=== PATIENT | male | born 1980 | race Caucasian/White ===

== ENCOUNTER 2017-01-12 19:15 | Inpatient (IN) ==
[2017-01-12] MEDS ORDERED: *HR* LORazepam 2 MG/ML VIAL IVP ONE (19:18)
[2017-01-12] MEDS ORDERED: 0.9 % Sodium Chloride 1,000 ML IVC ONE (19:18)
[2017-01-12] MEDS ORDERED: Tdap (Boostrix) Vaccine 0.5 ML SYRINGE IM ONE (19:19)
--- NOTE | 2017-01-12 19:22 | Emergency Department Note ---
Disposition Clinical Impression: Epileptic seizure, Shoulder injury, Tachycardia, Abrasion, Elevated INR, Anemia , Cerebrovascular disease, Renal insufficiency Disposition: Admitted As Inpatient Condition: Fair Referrals: NO,PCP [Non-Partnered Physician] - Forms: ED Satisfaction Letter General Adult HPI - General Chief complaint: ED Seizure Stated complaint: SEIZURES - History of Present Illness HPI Narrative: 36-year-old male with a history of seizure disorder, he was just evaluated in emergency department and discharged. The patient was in the parking lot and had another seizure. The patient's mother reports he did not fall down or get hurt. They were able to lower him to the ground. The patient was brought into the ED then lost bladder control. Tonic-clonic activity is reported. The patient was feeling well several minutes ago at discharge and was able to ambulate out of the ED without difficulty. No other complaints or concerns noted. - Related Data Home Medications Medication Instructions Recorded Confirmed Carvedilol 12.5 mg PO BID 09/21/16 01/12/17 LevETIRAcetam [Levetiracetam] 1,000 mg PO BID 09/21/16 01/12/17 Sertraline [Zoloft] 100 mg PO DAILY 09/21/16 01/12/17 Simvastatin [Zocor] 40 mg PO HS 09/21/16 01/12/17 TraZODone [TraZODone] 50 mg PO HS 09/21/16 01/12/17 Ziprasidone HCl [Geodon] 40 mg PO BID 09/21/16 01/12/17 Lamotrigine [Lamictal] 100 mg PO BID 01/12/17 01/12/17 Warfarin [Coumadin] 4 mg PO 1800 01/12/17 01/12/17 Allergies Allergy/AdvReac Type Severity Reaction Status Date / Time amitriptyline [From Elavil] Allergy Seizure Verified 11/22/15 16:24 Limitations: ROS unobtainable due to patients medical condition Past Medical History - Past Medical History Medical history: Reports: CVA, hyperlipidemia, hypertension, migraine Psychiatric history: Reports: anxiety, depression, panic disorder - Social History Smoking Status: Current every day smoker Smokeless Tobacco Status: No Alcohol use: Reports: none Drug use: Reports: none Physical Exam - General Limitations: altered mental status, other (The patient appears to be slightly postictal, he is moving his arms and legs independently and does not appear to be in distress, no tonic-clonic jerking noted. The patient is managing his airway.) General appearance: alert - Head Head exam: atraumatic, normocephalic, normal inspection - Eye Eye exam: Present: normal appearance, PERRL, EOMI. Absent: scleral icterus, conjunctival injection, miosis, mydriasis - ENT ENT exam: normal exam, normal oropharynx, mucous membranes moist, TM's normal bilaterally, normal external ear exam - Neck Neck exam: Present: normal inspection, full ROM, trachea midline. Absent: tenderness - Chest Chest inspection: Present: normal inspection, symmetric chest wall rise. Absent : tenderness - Respiratory Respiratory exam: Present: normal lung sounds bilaterally. Absent: respiratory distress - Cardiovascular Cardiovascular exam: Present: regular rate, normal rhythm, normal heart sounds - Abdominal Exam Abdominal exam: Present: soft, Non-Tender, normal bowel sounds. Absent: tenderness, distention, guarding, rebound, rigidity, trauma, pulsatile mass - Extremities Exam Extremities exam: Present: full ROM, normal capillary refill, other (Old appearing bruising right shoulder. No dislocation. All 4 extremities warm and well perfused without cyanosis or edema otherwise. Minor abrasion right wrist area.). Absent: tenderness, pedal edema, joint swelling, calf tenderness - Expanded Lower Extremity Exam Hip/Pelvis exam: Present: full ROM. Absent: tenderness Upper leg exam: Present: full ROM. Absent: tenderness Knee exam: Present: full ROM. Absent: tenderness Lower leg exam: Present: full ROM. Absent: tenderness, Homans' sign Ankle exam: Present: full ROM. Absent: tenderness Foot/toe exam: Present: full ROM. Absent: tenderness Neurovascular/Tendon exam: Present: normal capillary refill. Absent: motor deficit, sensory deficit, tendon deficit, extremity cold to touch, pallor - Back Exam Back exam: Present: normal inspection, full ROM. Absent: tenderness, CVA tenderness (R), CVA tenderness (L), vertebral tenderness - Neurological Exam Neurological exam: Present: alert, CN II-XII intact. Absent: motor sensory deficit - Skin Skin exam: Present: warm, dry, intact, normal color. Absent: rash, cyanosis, diaphoresis, erythema, pallor, mottled Course Vital Signs Temperature 98 F 01/12/17 19:17 Pulse Rate 113 01/12/17 19:17 Respiratory Rate 22 01/12/17 19:17 Blood Pressure 173/117 01/12/17 19:17 O2 Sat by Pulse Oximetry 96 01/12/17 19:17 Temperature 98 F 01/12/17 19:17 Pulse Rate 88 01/12/17 20:51 Respiratory Rate 18 01/12/17 20:51 Blood Pressure 157/97 01/12/17 20:51 O2 Sat by Pulse Oximetry 100 01/12/17 20:51 Oxygen Delivery Oxygen Delivery Room Air Medical Decision Making - MDM Narrative Medical decision making narrative: The patient had a second seizure today. He does not usually have recurrent seizures. After Ativan, the patient became much more alert and arousable. He was able to follow commands without difficulty. The family did not want him to have a shoulder x-ray. They felt the shoulder was bruised her week ago or so. The patient appears to be stable at this point. He also had a lapse in his usual therapy for seizures which may be contributory. The patient is currently stable. Based on the patient's recurrent seizures, I thought it would be appropriate to admit the patient to the hospital. I have discussed the case with the hospitalist on-call who has accepted the patient to their care, he does not feel an MRI is necessary at this time. He asked me to consult with the neurologist [employer], I called Dr. Carrasco and spoke with him directly, he recommends keeping the patient on his current regimen, Dr. Carrasco will consult. - Lab Data Lab results reviewed: Yes I reviewed the patient's lab results. - Radiology Data Radiology results reviewed: Yes I reviewed the patient's radiology results.
[2017-01-13] MEDS ORDERED: *HR* LORazepam 2 MG/ML VIAL IVP STA ×3 (02:15→02:28)
[2017-01-13] MEDS ORDERED: *HR* LORazepam 2 MG/ML VIAL ONE ×2 (02:16→02:17)
[2017-01-13] MEDS ORDERED: Naloxone 0.4 MG/ML INJ IVP PRN (02:47)
[2017-01-13] MEDS ORDERED: *HR* LORazepam 2 MG/ML VIAL IVP PRN (02:47)
[2017-01-13] MEDS ORDERED: Magnesium Sulfate 2 GM in D5% in Water 100 ML IVPB ONE (02:55)
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
[2017-01-13 04:50] LABS: Basophils % 0.2 %; Eosinophils # 0.1 K/mcL (0.0-0.6); Eosinophils % 0.6 %; Hematocrit 29.8 % (37.5-50.1); Hemoglobin 10.1 g/dL (12.9-16.9); Immature Granulocytes % 0.9 % (0-4); Lymphocytes # 0.8 K/mcL (0.6-4.6); Lymphocytes % 7.2 %; Mean Corpuscular HGB Conc 33.9 g/dL (31.6-35.5); Mean Corpuscular Hemoglobin 28.2 pg (28.0-33.3); Mean Corpuscular Volume 83.2 fL (83.0-100.0); Mean Platelet Volume 10.9 fL (9.4-12.4); Monocytes # 0.9 K/mcL (0.0-1.3); Monocytes % 8.8 %; Neutrophils # 8.8 K/mcL (1.6-8.9); Platelet Count 146 K/mcL (140-400); Red Blood Count 3.58 M/mcL (4.19-5.50); Red Cell Distribution Width 14.4 % (11.5-14.5); Segmented Neutrophils % 82.3 %
[2017-01-13 04:54] LABS: INR 2.8; Prothrombin Time 30.8 Seconds (9.4-12.1)
[2017-01-13 05:07] LABS: Alanine Aminotransferase 12 Units/L (0-55); Albumin 3.5 g/dL (3.5-5.0); Albumin/Globulin Ratio 1.1 (1.1-2.2); Alkaline Phosphatase 89 Units/L (38-126); Aspartate Amino Transferase 16 Units/L (5-34); BUN/Creatinine Ratio 9 (6-26); Bilirubin,Total 0.3 mg/dL (0.2-1.2); Blood Urea Nitrogen 12 mg/dL (8-26); Calcium 8.5 mg/dL (8.6-10.8); Carbon Dioxide 21 mEq/L (19-29); Chloride 107 mEq/L (98-109); Globulin 3.2 g/dL (2.4-3.5); Glucose 120 mg/dL (70-99); Magnesium 1.7 mg/dL (1.6-2.6); Osmolality,Calculated 285 (280-300); Potassium 4.2 mEq/L (3.5-4.5); Sodium 137 mEq/L (136-145); Total Protein 6.7 g/dL (6.0-8.3); eGFR For African Americans > 60 (> 60); eGFR For Non-African Americans 60 (> 60)
[2017-01-13] MEDS ORDERED: *HR* LORazepam 2 MG/ML VIAL IVP ONE (07:31)
[2017-01-13] MEDS ORDERED: lamoTRIgine 100 MG TABLET PO SCH (09:00)
[2017-01-13] MEDS: levETIRAcetam 250 MG TABLET PO SCH ×2 (11:31→21:23)
--- NOTE | 2017-01-13 11:52 | Internal Med Progress Note ---
Date of Encounter: 01/13/17 Time of Encounter: 11:50 - Assessment and plan (1) Generalized seizure Current Visit: No Status: Acute Assessment and plan: -No recurrent seizure activity reported after the seizure episode last night -Neurology consultation with Dr. Carrasco appreciated -awaiting keppra level -antiepileptic medications adjusted as per Dr. Carrasco -continue Ativan for breakthrough seizures -continue to closely monitor -medication compliance education provided, patient willing to remain compliant with his home medications at this time. (2) Hypertension Current Visit: Yes Status: Acute Assessment and plan: -Noted to remain hypertensive despite home dose of Carvedilol -Increased Carvedilol to 25mg PO BID-BP and HR better controlled with this adjustment -added Hydralazine IV prn SBP>150 -will continue to closely monitor BP and adjust therapy as needed Qualifiers: Hypertension type: essential hypertension Qualified Code(s): I10 - Essential (primary) hypertension (3) Antiphospholipid antibody syndrome Current Visit: Yes Status: Acute Assessment and plan: -on chronic anticoagulation with Coumadin for stroke prevention -INR within therapeutic range at this time -Will resume coumadin -pharmacy to dose coumadin and adjust therapy as per INR -goal INR: 2-3 (4) Elevated INR Current Visit: Yes Status: Resolved Assessment and plan: INR within therpeutic range at this time (5) Tobacco abuse Current Visit: Yes Status: Acute Assessment and plan: smoking cessation counseling provided patient not ready to quit at this time refused nicotine replacement therapy (6) Anemia Current Visit: Yes Status: Chronic Assessment and plan: H&H low but acceptable no acute bleeding reported at this time will obtain iron levels, vitamin B12, and folate levels continue to monitor H&H Qualifiers: Anemia type: unspecified type Qualified Code(s): D64.9 - Anemia, unspecified (7) Chronic kidney disease Current Visit: Yes Status: Chronic Assessment and plan: Kidney function at baseline will continue to monitor Qualifiers: Chronic kidney disease stage: stage 3 (moderate) Qualified Code(s): N18.3 - Chronic kidney disease, stage 3 (moderate) (8) DVT prophylaxis Current Visit: Yes Status: Acute Assessment and plan: anticoagulated with Coumadin - Subjective Interval history: Patient seen and examined at bedside. Resting in bed and denies any discomfort at this time. Does not remember the preceding events to his hospitalization and states he doesn't recall if he was taking his seizure medications at home. He is a well known patient to the neurology service and has issues with compliance. Patient reports of being an every day smoker. 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 - Constitutional Vitals: Temp Pulse Resp BP Pulse Ox 98.2 F 94 15 135/92 97 01/13/17 11:29 01/13/17 11:29 01/13/17 11:29 01/13/17 11:29 01/13/17 11:29 General appearance: Present: A&O X 3, no acute distress - Head Head exam: Present: atraumatic, normocephalic - Eye Eye exam: Present: normal appearance, PERRL, conjuntiva pink, sclera anicteric - Respiratory Respiratory exam: Present: CTAB. Absent: accessory muscle use, rales, rhonchi, wheezes - Cardiovascular Cardiovascular exam: Present: RRR, +S1, +S2. Absent: diastolic murmur, gallop, rubs, systolic murmur - GI/Abdominal GI/Abdominal exam: Present: normal bowel sounds, soft, no peritoneal signs. Absent: distended, tenderness - Extremities Exam Extremities exam: Present: warm, radial pulses palpable and symetrical. Absent : calf tenderness, cyanotic, pedal edema - Neurological Exam Neurological exam: Present: alert, oriented X3, no focal deficits. Absent: pronater drift, facial droop, speech deficit - Psychiatric Psychiatric exam: Present: normal affect, normal mood Internal Medicine: Result - Labs CBC & Chem 7: 01/13/17 04:30 01/13/17 04:30 Labs: Short CBC 01/13/17 Range/Units 04:30 WBC 10.7 D (4.3-11.1) K/mcL Hgb 10.1 L (12.9-16.9) g/dL Hct 29.8 L (37.5-50.1) % Plt Count 146 (140-400) K/mcL Neutrophils # 8.8 (1.6-8.9) K/mcL BMP 01/13/17 04:30 Sodium 137 Potassium 4.2 Chloride 107 Carbon Dioxide 21 BUN 12 Creatinine 1.35 H Glucose 120 H Calcium 8.5 L Liver Function 01/13/17 Range/Units 04:30 Total Bilirubin 0.3 (0.2-1.2) mg/dL AST 16 (5-34) Units/L ALT 12 (0-55) Units/L Alkaline Phosphatase 89 (38-126) Units/L Albumin 3.5 (3.5-5.0) g/dL - ABG Interpretation ABG results: PT/INR, D-dimer PT 30.8 Seconds (9.4-12.1) H 01/13/17 04:30 - VTE Reasons for not Prescribing Prophylaxis: Not indicated-Anticoagulated or INR therapeutic Consult Discharge Plan - Plan Referrals: Mat Mitchell MD [Primary Care Provider] -
--- NOTE | 2017-01-13 11:56 | Neurology - Consult Note ---
Date of Encounter: 01/13/17 Time of Encounter: 11:50 Assessment and Plan (1) Epileptic seizure Current Visit: Yes Status: Acute Patient with known seizure disorder, who developed two breakthrough seizures in one day, lucid and back to baseline in between seizures. Compliance can not be confirmed at this time. Patient has significant past neurological conditions, including CVA, and multiple instances of subdural hematoma during 2011. Possible he would not be totally compliant with therapy. CT of head showed no acute changes. At this time, it appears there is no significant new [employer] pathology or medical provoking factors. Therefore treatment is largely adjusting his antiepileptic therapy. Has been on keppra 1000mg bid and lamotrigine 100mg bid. Will recommend to increase his lamotrigine dose to 150mg bid and continue on keppra 1000mg bid. Patient is to follow up with [facility] neurology or he can be seen in our neurology clinic after discharge. Will check lamotrigine level and keppra level for compliance check up. Please continue medical and supportive care Qualifiers: Epilepsy type: partial symptomatic Intractability: not intractable Status epilepticus: without status epilepticus Qualified Code(s): G40.209 - Localization-related (focal) (partial) symptomatic epilepsy and epileptic syndromes with complex partial seizures, not intractable, without status epilepticus History of Present Illness Chief complaint: recurrent seizures HPI: Mr. Arguello is a 36 year old male with extensive neurological conditions, notably history of ischemic stroke, history of antiphospholipid syndrome on coumadin, history of subdural hematoma, and seizure disorder who developed two witnessed seizures in one day. Patient carries a diagnosis of seizure made at [facility]. He last saw neurologist at [facility] during 2011. Has not seen neurology since then. He could not tell me detailed information regarding his seizures. Takes both keppra and lamotrigine for his seizures, keppra 1000g bid and Lamotrigine 100mg bid but unsure he is compliance with seizure medication or not. Yesterday he developed a seizure and was evaluated in ER. He had CT of head showing no acute intracranial abnormality. At the time of being discharged home he had another seizure. While on the floor patient was found to be actively seizing with urinary incontinence. Patient was started on Dilantin, in addition to keppra/ lamotrigine. At the time of this interview, he is wide awake and able to answer questions. no significant discomforts reported. Able to move all extremities. Past Med Surg Social Fam HX - Past Medical History Medical history: CVA, hyperlipidemia, hypertension, migraine Psychiatric history: anxiety, depression, panic disorder - Past Surgical History Surgical History: no surgical history (none known) - Social History Smoking Status: Current every day smoker Smokeless Tobacco Status: No Alcohol use: none Drug use: none - Family History Mother History Unknown: Yes Father History Unknown: Yes Medications and Allergies Carvedilol 12.5 mg PO BID 09/21/16 [History] LevETIRAcetam [Levetiracetam] 1,000 mg PO BID 09/21/16 [History] Sertraline [Zoloft] 100 mg PO DAILY 09/21/16 [History] Simvastatin [Zocor] 40 mg PO HS 09/21/16 [History] TraZODone [TraZODone] 50 mg PO HS 09/21/16 [History] Ziprasidone HCl [Geodon] 40 mg PO BID 09/21/16 [History] Lamotrigine [Lamictal] 100 mg PO BID 01/12/17 [History] Warfarin [Coumadin] 4 mg PO 1800 01/12/17 [History] Allergies amitriptyline [From Elavil] Allergy (Verified 11/22/15 16:24) Seizure All Systems: A 10-system review of systems was performed and is negative for pertinent findings except as documented above in the HPI. Physical Examination - Vital Signs Vital Signs: Initial Vital Signs Temp Pulse Resp BP Pulse Ox 98 F 113 22 173/117 96 01/12/17 19:17 01/12/17 19:17 01/12/17 19:17 01/12/17 19:17 01/12/17 19:17 - Constitutional General appearance: comfortable - Neurologic Sensorimotor examination: other (Grossly intact) Detailed motor examination: grossly full strength in all extremities Detailed sensory examination: intact (Grossly intact) Posture: other (None) Reflex and gait examination: other (Gait not assessed.) Reflexes: Biceps: 2+, Triceps: 2+, Brachioradialis: 2+, Patella: 2+, Achilles: 2 + Mental Status Examination: awake, alert, oriented to person, oriented to place, oriented to time, follows commands appropriately, answers questions appropriately, no agnosia, no aphasia, no aproxia Results - Laboratory Findings CBC and BMP: 01/13/17 04:30 01/13/17 04:30 Abnormal lab findings: Abnormal lab results RBC 3.58 M/mcL (4.19-5.50) L 01/13/17 04:30 Hgb 10.1 g/dL (12.9-16.9) L 01/13/17 04:30 Hct 29.8 % (37.5-50.1) L 01/13/17 04:30 PT 30.8 Seconds (9.4-12.1) H 01/13/17 04:30 Creatinine 1.35 mg/dL (0.72-1.25) H 01/13/17 04:30 Glucose 120 mg/dL (70-99) H 01/13/17 04:30 POC Glucose 121 (58-89) H 01/13/17 02:58 Calcium 8.5 mg/dL (8.6-10.8) L 01/13/17 04:30 Consult Discharge Plan - Plan Referrals: Mat Mitchell MD [Primary Care Provider] -
--- NOTE | 2017-01-13 17:54 | Electrocardiograph Report ---
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
[2017-01-13] MEDS ORDERED: Warfarin perPT PO PRN (18:00)
[2017-01-13] MEDS ORDERED: *HR* Warfarin 4 MG TABLET PO SCH (18:00)
[2017-01-13] MEDS: Acetaminophen 325 MG TABLET PO PRN (18:40)
[2017-01-13] MEDS ORDERED: traZODone 50 MG TABLET PO SCH (21:00)
[2017-01-13] MEDS: Ziprasidone 20 MG CAPSULE PO SCH (21:23)
[2017-01-13] MEDS: lamoTRIgine 100 MG TABLET PO SCH (21:23)
[2017-01-14 04:59] LABS: Basophils % 0.2 %; Eosinophils % 0.5 %; Hematocrit 31.4 % (37.5-50.1); Hemoglobin 10.5 g/dL (12.9-16.9); Immature Granulocytes % 0.5 % (0-4); Lymphocytes # 0.8 K/mcL (0.6-4.6); Lymphocytes % 13.2 %; Mean Corpuscular HGB Conc 33.4 g/dL (31.6-35.5); Mean Corpuscular Hemoglobin 28.2 pg (28.0-33.3); Mean Corpuscular Volume 84.4 fL (83.0-100.0); Monocytes # 0.6 K/mcL (0.0-1.3); Monocytes % 10.7 %; Neutrophils # 4.3 K/mcL (1.6-8.9); Platelet Count 141 K/mcL (140-400); Red Blood Count 3.72 M/mcL (4.19-5.50); Red Cell Distribution Width 14.5 % (11.5-14.5); Segmented Neutrophils % 74.9 %
[2017-01-14 05:00] LABS: INR 2.1; Prothrombin Time 23.6 Seconds (9.4-12.1)
[2017-01-14 05:27] LABS: % Iron Saturation 13 % (20-55); BUN/Creatinine Ratio 8 (6-26); Blood Urea Nitrogen 10 mg/dL (8-26); Carbon Dioxide 23 mEq/L (19-29); Chloride 105 mEq/L (98-109); Glucose 95 mg/dL (70-99); Iron 37 mcg/dL (65-175); Magnesium 1.9 mg/dL (1.6-2.6); Osmolality,Calculated 283 (280-300); Phosphorous 2.7 mg/dL (2.3-4.7); Potassium 3.8 mEq/L (3.5-4.5); Sodium 137 mEq/L (136-145); Transferrin 208 mg/dL (174-364); eGFR For African Americans > 60 (> 60); eGFR For Non-African Americans > 60 (> 60)
[2017-01-14 05:49] LABS: Ferritin 139 ng/ml (22-275)
[2017-01-14 06:02] LABS: Folate 11.1 ng/mL (7.0-31.4)
[2017-01-14] MEDS: Ziprasidone 20 MG CAPSULE PO SCH (08:27)
[2017-01-14] MEDS: levETIRAcetam 250 MG TABLET PO SCH (08:28)
[2017-01-14] MEDS: lamoTRIgine 100 MG TABLET PO SCH (08:28)
[2017-01-14] MEDS: Acetaminophen 325 MG TABLET PO PRN (08:56)
[2017-01-14] MEDS ORDERED: Cyanocobalamin (B-12) 1,000 MCG TABLET PO SCH (09:00)
--- NOTE | 2017-01-14 11:06 | Neurology Progress Note ---
Date of Encounter: 01/14/17 Time of Encounter: 11:04 Subjective Principal diagnosis: seizures Interval history: Pt seen and examined. He claims to not remember any details yesterday when he reportedly had two episodes of seizures, but states he has not had any events overnight and is feeling well this morning. Has no issues with LOC, visual problems, walking difficulties, or problems eating food. He is unsure of what medications for seizure he was on in the past and states his mom would know, but she is not present. He prefers to follow up with [facility] upon discharge. Objective - Constitutional Vitals: Temp Pulse Resp BP Pulse Ox 98.9 F 98 18 129/97 98 01/14/17 10:50 01/14/17 10:50 01/14/17 10:50 01/14/17 10:50 01/14/17 10:50 General appearance: Present: cooperative, A&O X 3, pleasant, no acute distress, answers questions appropriately - Head Head exam: Present: atraumatic, normocephalic - Eye Eye exam: Present: EOMI, PERRL (pupils appear abnormally dilated), conjuntiva pink, sclera anicteric - Extremities Exam Extremities exam: Present: warm, radial pulses palpable and symetrical. Absent : calf tenderness, cyanotic, pedal edema - Neurological Exam Sensorimotor examination: Present: intact, other (Grossly intact) Motor Examination: Present: grossly full strength in all extremities Motor examination - right side: 5/5: deltoids, biceps, triceps, wrist flexion, wrist extension, mainspring strip inspector Motor examination - left side: 5/5: deltoids, biceps, triceps, wrist flexion, wrist extension, hip flexors, mainspring strip inspector Sensation intact: Present: intact (Grossly intact) Posture: Present: other (None) Reflex and gait examination: other (Gait not assessed.) Mental Status Examination: Present: awake, alert, oriented to person, oriented to place, oriented to time, follows commands appropriately, answers questions appropriately, no agnosia, no aphasia, no aproxia Cranial nerve examination: Present: PERRL, EOMI, visual wallace intact, no dysarthria - VTE Reasons for not Prescribing Prophylaxis: Not indicated-Anticoagulated or INR therapeutic Results - Laboratory Findings CBC and BMP: 01/14/17 03:58 01/14/17 03:58 Abnormal lab findings: Abnormal lab results RBC 3.72 M/mcL (4.19-5.50) L 01/14/17 03:58 Hgb 10.5 g/dL (12.9-16.9) L 01/14/17 03:58 Hct 31.4 % (37.5-50.1) L 01/14/17 03:58 PT 23.6 Seconds (9.4-12.1) H 01/14/17 03:58 Creatinine 1.27 mg/dL (0.72-1.25) H 01/14/17 03:58 POC Glucose 107 (58-89) H 01/13/17 11:28 Iron 37 mcg/dL (65-175) L 01/14/17 03:58 % Saturation 13 % (20-55) L 01/14/17 03:58 Vitamin B12 154 pg/mL (213-816) L 01/14/17 03:58 Consult Discharge Plan - Plan Referrals: Mat Mitchell MD [Primary Care Provider] - 01/19/17 2:00 pm David Kendrick MD [Non-Partnered Physician] - 02/24/17 10:00 am ( They added the patient to the [facility] wait list. If anyone cancels they will call him to come in sooner)
[2017-01-14 11:39] VITALS: BP 136/88
--- NOTE | 2017-01-14 11:44 | Discharge Summary ---
Date of Encounter: 01/14/17 Time of Encounter: 11:41 - Discharge Diagnosis (1) Generalized seizure Priority: Primary Status: Acute (2) Hypertension Priority: Secondary Status: Chronic Qualifiers: Hypertension type: essential hypertension Qualified Code(s): I10 - Essential (primary) hypertension (3) Antiphospholipid antibody syndrome Priority: Secondary Status: Chronic (4) Elevated INR Priority: Secondary Status: Resolved (5) Tobacco abuse Priority: Secondary Status: Chronic (6) Anemia Priority: Secondary Status: Chronic Qualifiers: Anemia type: unspecified type Qualified Code(s): D64.9 - Anemia, unspecified (7) Chronic kidney disease Priority: Secondary Status: Chronic Qualifiers: Chronic kidney disease stage: stage 3 (moderate) Qualified Code(s): N18.3 - Chronic kidney disease, stage 3 (moderate) (8) DVT prophylaxis Priority: Secondary Status: Acute - Discharge Medications Prescriptions: Carvedilol 25 mg PO BID #30 tablet Cyanocobalamin (B-12) [Vitamin B12] 1,000 mcg PO DAILY #15 tablet Lamotrigine [Lamictal] 150 mg PO BID #30 tablet LevETIRAcetam [Levetiracetam] 1,000 mg PO BID #30 tablet Home Medications: Sertraline [Zoloft] 100 mg PO DAILY 09/21/16 [History] Simvastatin [Zocor] 40 mg PO HS 09/21/16 [History] TraZODone 50 mg PO HS 09/21/16 [History] Ziprasidone HCl [Geodon] 40 mg PO BID 09/21/16 [History] Warfarin [Coumadin] 4 mg PO 1800 01/12/17 [History] Carvedilol 25 mg PO BID #30 tablet 01/14/17 [Rx] Cyanocobalamin (B-12) [Vitamin B12] 1,000 mcg PO DAILY #15 tablet 01/14/17 [Rx] Lamotrigine [Lamictal] 150 mg PO BID #30 tablet 01/14/17 [Rx] LevETIRAcetam [Levetiracetam] 1,000 mg PO BID #30 tablet 01/14/17 [Rx] Allergies/Adverse Reactions: Allergies amitriptyline [From Elavil] Allergy (Verified 11/22/15 16:24) Seizure Date of admission: 01/13/17 02:47 Primary care physician: Mat Mitchell MD Consults: Neurology: Dr. Carrasco Discharging clinician: Ivone Garcia Anticipated date of discharge: 01/14/17 - Patient Status Disposition: Home, Self-Care Condition: Good Functional capacity at discharge: independent ambulation Overall status at discharge: patient is back to baseline - Discharge Instructions Follow Up With: Mat Mitchell MD [Primary Care Provider] - 01/19/17 2:00 pm David Kendrick MD [Non-Partnered Physician] - 02/24/17 10:00 am ( They added the patient to the [facility] wait list. If anyone cancels they will call him to come in sooner) Additional Instructions: Please follow up with your primary care physician within one week after your discharge from the hospital. Please follow up with your neurologist within one week after your discharge from the hospital. Your home dose of Lamotrigine has been increased to 150mg twice a day. Your home dose of Carvedilol has been increased to 25mg twice a day. Please closely monitor your blood pressure. Please resume all your home medications as prescribed by your primary care physician and neurologist. - Diet and Activity Activity: resume usual activities as tolerated Diet: low salt diet Hospital course: Mr. Arguello is a 36 year old male with PMH of seizure disorder, hypertension, antiphospholipid syndrome on anticoagulation, HLD, CVA who was admitted for recurrent tonic clonic seizures. Patient was reported to have run out of his seizure medications for over a week and had a witnessed episode of seizure which is what brought him to the hospital. In the hospital he had another episode of generalized tonic clonic seizure requiring IV ativan. He was restarted on his home antiepileptics and neurology was consulted. As per neurology patient has a history of noncompliance and his home medications were readjusted. He was also noted to have persistent hypertension with tachycardia due to which his home dose of Carvedilol was increased. He responded well to therapy and has been seizure free for the last 24hours. He is currently hemodynamically stable, ambulating well around the room, and has been seizure free. He will be discharged to home with follow up with his PCP and Neurology. Patient demonstrates understanding of his diagnosis and agrees with the discharge care plan. - Time Spent with Patient Total time spent providing and/or coordinating discharge services: Greater than 30 minutes - Constitutional Vitals: Temp Pulse Resp BP Pulse Ox 98.9 F 87 18 136/88 98 01/14/17 10:50 01/14/17 11:31 01/14/17 10:50 01/14/17 11:31 01/14/17 10:50 General appearance: Present: A&O X 3, no acute distress, answers questions appropriately - Head Head exam: Present: atraumatic, normocephalic - Eye Eye exam: Present: normal appearance, PERRL, conjuntiva pink, sclera anicteric - Respiratory Respiratory exam: Present: CTAB. Absent: accessory muscle use, rales, rhonchi, wheezes - Cardiovascular Cardiovascular exam: Present: RRR, +S1, +S2. Absent: diastolic murmur, gallop, rubs, systolic murmur - GI/Abdominal GI/Abdominal exam: Present: normal bowel sounds, soft, no peritoneal signs. Absent: distended, tenderness - Extremities Exam Extremities exam: Present: warm, radial pulses palpable and symetrical. Absent : calf tenderness, cyanotic, pedal edema - Neurological Exam Neurological exam: Present: alert, CN II-XII intact, oriented X3, no focal deficits. Absent: pronater drift, facial droop, speech deficit - Psychiatric Psychiatric exam: Present: normal affect, normal mood - VTE Reasons for not Prescribing Prophylaxis: Not indicated-Anticoagulated or INR therapeutic
== END 2017-01-14 14:08 | disposition home or self-care (01) | DRG 101 ==
LOC: EMEROO 19:15 → 3BNU 19:15 → 2NNU 01-13 04:40
PROVIDERS: ADMIT Internal Medicine; ATTEND Nurse Practitioner Family

== ENCOUNTER 2018-07-04 20:27 | Inpatient (IN) ==
[2018-07-04] MEDS ORDERED: *HR* OxyCODONE Immed Rel 5 MG TABLET PO STA (21:14)
--- NOTE | 2018-07-04 21:19 | Emergency Department Note ---
Disposition Clinical Impression: Thrombocytopenic, Suicidal ideation Anemia Qualifiers: Anemia type: unspecified type Qualified Code(s): D64.9 - Anemia, unspecified Compression fracture of lumbar vertebra Qualifiers: Encounter type: initial encounter Fracture type: closed Compression fracture of thoracic vertebra Qualifiers: Encounter type: initial encounter Fracture type: closed Qualified Code(s): S22.000A - Wedge compression fracture of unspecified thoracic vertebra, initial encounter for closed fracture Disposition: Admitted As Inpatient Referrals: NONE,PCP [Primary Care Provider] - Forms: ED Satisfaction Letter Time of Disposition: 23:31 Back Pain HPI - General Chief Complaint: ED Back Pain/Injury Stated Complaint: "Back Pain" Time Seen by Provider: 07/04/18 20:48 Source: patient Limitations: no limitations Nursing Notes Reviewed: Yes Vital Signs Reviewed: Yes - History of Present Illness HPI Narrative: 30-year-old male presents from home for evaluation of increase in his chronic back pain. Patient has chronic back pain because it he is unable to elucidate. History of stroke with chronic deficits of generalized weakness and imbalance. He ambulates independently with a quad cane. Lives at home with his mother. PMH: History of CVA. HTN, HLD. Remote brain surgery s/p TBI. Migraine. Hx seizures. Anticoagulant: coumadin. Anticonvulsant: unknown to patient ROS: Pos: as above Neg: chest pain, palpitations, nausea, vomiting, fever, chills, cough, unusual weakness, headache, head trauma - Related Data Home Medications Medication Instructions Recorded Confirmed Atorvastatin Calcium [Lipitor] 20 mg PO HS 09/13/17 09/13/17 Baclofen [Lioresal] 10 mg PO BID 09/13/17 09/13/17 Carvedilol 3.125 mg PO BID 09/13/17 09/13/17 Fluconazole [Diflucan] 400 mg PO DAILY 09/13/17 09/13/17 Lacosamide [Vimpat] 200 mg PO Q12H 09/13/17 09/13/17 Lisinopril [Zestril] 5 mg PO DAILY 09/13/17 09/13/17 Multivitamin [One Daily 1 each PO DAILY 09/13/17 09/13/17 Multivitamin] OxyCODONE Immed Rel [Roxicodone 10 10 mg PO TID 12/04/17 12/04/17 MG] PHENobarbital [Phenobarbital] 64.8 mg PO Q12H 09/13/17 09/13/17 Quetiapine Fumarate [Seroquel] 50 mg PO TID 09/13/17 09/13/17 Sertraline [Zoloft] 50 mg PO DAILY 09/13/17 09/13/17 Warfarin [Coumadin] 3 mg PO 1800 09/13/17 09/13/17 Zolpidem [Ambien] 10 mg PO HS PRN 09/13/17 09/13/17 Previous Rx's Medication Instructions Recorded levETIRAcetam [Levetiracetam] 1,000 mg PO BID #30 tablet 01/14/17 Allergies Allergy/AdvReac Type Severity Reaction Status Date / Time amitriptyline [From Elavil] Allergy Seizure Verified 07/04/18 20:47 Past Medical History - Past Medical History Medical history: Reports: CVA, hyperlipidemia, hypertension, migraine, seizures Surgical history: Reports: no surgical history (none known) Psychiatric history: Reports: anxiety, depression, panic disorder - Social History Smoking Status: Current every day smoker Smokeless Tobacco Status: No Alcohol use: Reports: none Drug use: Reports: none Physical Exam Vital Signs Reviewed General: Patient is alert, oriented, and in no acute distress. He is slow to speak however is answering questions appropriately. He appears thin and older than stated age. Head: atraumatic, normocephalic Eye: normal appearance, PERRL, EOMI, no scleral icterus, no conjunctival injection ENT: mucous membranes moist, normal external ear exam Neck: normal inspection, trachea midline, full ROM Chest: normal inspection, symmetric chest rise Respiratory: Good respiratory effort. Bilateral breath sounds are clear without wheezing, crackles, or rhonchi. Cardiovascular: Regular rate and rhythm. No clicks, rubs, gallops, or murmors. Normal heart sounds. Abdomen: Bowel sounds present normoactive x-4 quadrants. Abdomen is soft, nondistended, and nontender. No guarding or rebound. Musculoskeletal: Spontaneously moving all extremities. No midline C-spine, L- spine, T-spine tenderness. Skin: warm, dry. Mottling of patient's upper and lower extremities; baseline per patient. Neuro: Alert and oriented x4. Sensation light touch intact. Psych: Patient's affect is appropriate for situation. - General Limitations: no limitations Course Course Narrative: Patient is a poor historian. He has difficulty recalling timelines and diagnoses. His standard response is, "It is an ongoing process." He is aware of his overal poor medical condition. He notes his depression is worsening. He does have thoughts of harming himself. Will perform workup to assess his spine as well as attempt medical clearance. Will attempt to manage his pain in the mean time. CT lumbar and thoracic spine shows new compression fractures and worsening compression fractures. Because of this, cannot medically clear the patient at this time. He does not have any saddle anesthesia, lower extremity paresthesias or new weakness, no incontinence bowel or bladder. His pain was improved with Roxicodone 10 mg. However, it is returning. Patient is anemic; hemoglobin today is below his baseline. He is also thrombus cytopenic. Patient denies any melena or hematochezia. He does state he is on warfarin but does not know why. INR is 1.4; unsure of therapeutic level as I am unsure the reason for his anticoagulation. I discussed the above with the admitting hospitalist. He agrees to accept the patient for continued evaluation monitoring. He requested I do type and screen in order to units on hold. I done so as well as called blood pain. Center has been ordered. [place] slip on patient's file. Lumbar Spine CT 07/04/18 21:10 IMPRESSION: Superior endplate compression fracture involving the anterior middle column. Mild vertebral body height loss. No significant retropulsion into the spinal canal. No convincing evidence of extension into the posterior elements. This fracture is age indeterminate, but may be acute. This is new since 09/13/2017, CT abdomen and pelvis. No evidence of significant spondylolisthesis. Severe diffuse osteopenia limits evaluation for nondisplaced fractures. D/ / 07/04/2018 22:42:53 Armaan Barron MD / boyd Interpreting Provider: Armaan Barron MD Thoracic Spine CT 07/04/18 21:10 IMPRESSION: Multiple compression fractures throughout the thoracic spine, most of which have increased when compared to the previous chest CT from 09/13/2017. The age of these is indeterminate. Consider further evaluation with MRI to better characterize them. Mild alveolar ground-glass opacity within the lungs, mainly on the right. Correlate with any clinical evidence of infectious pneumonitis. D/ / Jg Dean MD / Jg Dean MD Interpreting Provider: Jg Dean MD Vital Signs Temperature 98.9 F 07/04/18 20:39 Pulse Rate 118 07/04/18 20:39 Respiratory Rate 20 07/04/18 20:39 Blood Pressure 159/112 07/04/18 20:39 O2 Sat by Pulse Oximetry 100 07/04/18 20:39 Temperature 98.9 F 07/04/18 20:39 Pulse Rate 118 07/04/18 20:39 Respiratory Rate 20 07/04/18 20:39 Blood Pressure 159/112 07/04/18 20:39 O2 Sat by Pulse Oximetry 100 07/04/18 20:39 Oxygen Delivery Oxygen Delivery Room Air Back Pain/Injury - Lab Data Result diagrams: 07/04/18 22:11 07/04/18 22:11 Lab Results 07/04/18 07/04/18 07/04/18 Range/Units 21:16 21:16 22:11 WBC 4.1 L (4.3-11.1) K/mcL RBC 2.38 L (4.19-5.50) M/mcL Hgb 7.2 L (12.9-16.9) g/dL Hct 22.0 L (37.5-50.1) % MCV 92.4 (83.0-100.0) fL MCH 30.3 (28.0-33.3) pg MCHC 32.7 (31.6-35.5) g/dL RDW 17.0 H (11.5-14.5) % Plt Count 74 L (140-400) K/mcL MPV 10.5 (9.4-12.4) fL Immature Gran % 0.5 (0-4) % Seg Neutrophils % 77.9 % Lymphocytes % 8.6 % Monocytes % 12.5 % Eosinophils % 0.5 % Basophils % 0.0 % Neutrophils # 3.2 (1.6-8.9) K/mcL Lymphocytes # 0.4 L (0.6-4.6) K/mcL Monocytes # 0.5 (0.0-1.3) K/mcL Eosinophils # 0.0 (0.0-0.6) K/mcL Basophils # 0.0 (0.0-0.2) K/mcL Platelet Estimate Decreased L (Normal) Immature Plt Fraction 9.6 H (1.1-6.1) % Hypochromasia Present A (Not Present) Anisocytosis 1+ A (Not Present) PT (9.4-12.1) Seconds INR Sodium (136-145) mEq/L Potassium (3.5-5.1) mEq/L Chloride (98-107) mEq/L Carbon Dioxide (23-29) mEq/L BUN (6-20) mg/dL Creatinine (0.70-1.30) mg/dL Est GFR ( Amer) (> 60) Est GFR (Non-Af Amer) (> 60) BUN/Creatinine Ratio (6-26) Glucose (70-105) mg/dL Calculated Osmolality (280-300) Lactic Acid (0.5-2.2) mmol/L Calcium (8.6-10.3) mg/dL Urine Color Yellow (Yellow) Urine Clarity Clear (Clear) Urine pH 7.0 (5.0-8.0) pH Units Ur Specific Bosworth 1.005 L (1.010-1.025) Urine Protein >=300 H (Neg-Trace) mg/dL Urine Glucose (UA) Normal (Normal) mg/dL Urine Ketones Negative (Negative) mg/dL Urine Blood Trace H (Negative) Urine Nitrite Negative (Negative) Urine Bilirubin Negative (Negative) Urine Urobilinogen Normal (Normal) mg/dL Ur Leukocyte Esterase Negative (Negative) Urine Microscopic RBC 0-3 (0-3) per hpf Urine Microscopic WBC 0-3 (0-3) per hpf Ur Squamous Epith Cells Many H (None-Few) per lpf Urine Bacteria None Seen (None-Few) per hpf Hyaline Casts None Seen (None-Few) per lpf Ur Culture Indicated? NO (NO) Salicylates (15.0-30.0) mg/dL Urine Opiates Screen Negative (Gxgasu=863) ng/mL Acetaminophen (10-20) mcg/mL Ur Barbiturates Screen Positive H (Zossjq=944) ng/mL Ur Phencyclidine Scrn Negative (Cutoff=25) ng/mL Ur Amphetamines Screen Negative (Icartq=2082) ng/mL U Benzodiazepines Scrn Negative (Mnvupw=211) ng/mL Urine Cocaine Screen Negative (Cutoff= 300) ng/mL U Marijuana (THC) Screen Negative (Cutoff = 50) ng/mL Ur Drug Screen Interp See Below Ethyl Alcohol (Less than 10) mg/dL 07/04/18 07/04/18 07/04/18 Range/Units 22:11 22:11 22:11 WBC (4.3-11.1) K/mcL RBC (4.19-5.50) M/mcL Hgb (12.9-16.9) g/dL Hct (37.5-50.1) % MCV (83.0-100.0) fL MCH (28.0-33.3) pg MCHC (31.6-35.5) g/dL RDW (11.5-14.5) % Plt Count (140-400) K/mcL MPV (9.4-12.4) fL Immature Gran % (0-4) % Seg Neutrophils % % Lymphocytes % % Monocytes % % Eosinophils % % Basophils % % Neutrophils # (1.6-8.9) K/mcL Lymphocytes # (0.6-4.6) K/mcL Monocytes # (0.0-1.3) K/mcL Eosinophils # (0.0-0.6) K/mcL Basophils # (0.0-0.2) K/mcL Platelet Estimate (Normal) Immature Plt Fraction (1.1-6.1) % Hypochromasia (Not Present) Anisocytosis (Not Present) PT 16.2 H (9.4-12.1) Seconds INR 1.4 Sodium 134 L (136-145) mEq/L Potassium 3.7 (3.5-5.1) mEq/L Chloride 99 (98-107) mEq/L Carbon Dioxide 24 (23-29) mEq/L BUN 10 (6-20) mg/dL Creatinine 1.07 (0.70-1.30) mg/dL Est GFR ( Amer) > 60 (> 60) Est GFR (Non-Af Amer) > 60 (> 60) BUN/Creatinine Ratio 9 (6-26) Glucose 102 (70-105) mg/dL Calculated Osmolality 277 L (280-300) Lactic Acid 0.9 (0.5-2.2) mmol/L Calcium 8.8 (8.6-10.3) mg/dL Urine Color (Yellow) Urine Clarity (Clear) Urine pH (5.0-8.0) pH Units Ur Specific [place] (1.010-1.025) Urine Protein (Neg-Trace) mg/dL Urine Glucose (UA) (Normal) mg/dL Urine Ketones (Negative) mg/dL Urine Blood (Negative) Urine Nitrite (Negative) Urine Bilirubin (Negative) Urine Urobilinogen (Normal) mg/dL Ur Leukocyte Esterase (Negative) Urine Microscopic RBC (0-3) per hpf Urine Microscopic WBC (0-3) per hpf Ur Squamous Epith Cells (None-Few) per lpf Urine Bacteria (None-Few) per hpf Hyaline Casts (None-Few) per lpf Ur Culture Indicated? (NO) Salicylates < 2.5 L (15.0-30.0) mg/dL Urine Opiates Screen (Qnksok=999) ng/mL Acetaminophen < 10 L (10-20) mcg/mL Ur Barbiturates Screen (Vjjmgb=022) ng/mL Ur Phencyclidine Scrn (Cutoff=25) ng/mL Ur Amphetamines Screen (Mecohg=7413) ng/mL U Benzodiazepines Scrn (Fmfxut=646) ng/mL Urine Cocaine Screen (Cutoff= 300) ng/mL U Marijuana (THC) Screen (Cutoff = 50) ng/mL Ur Drug Screen Interp Ethyl Alcohol < 10 (Less than 10) mg/dL
[2018-07-04 21:38] LABS: Bilirubin,Urine Negative (Negative); Blood,Urine Trace (Negative); Clarity,Urine Clear (Clear); Color,Urine Yellow (Yellow); Glucose,Urine (UA) Normal (Normal); Ketones,Urine Negative (Negative); Leukocyte Esterase,Urine Negative (Negative); Nitrite,Urine Negative (Negative); Protein,Urine >=300 mg/dL (Neg-Trace); Specific Gravity,Urine 1.005 (1.010-1.025); Urobilinogen,Urine Normal (Normal)
[2018-07-04 21:40] LABS: Bacteria,Urine None Seen per hpf (None-Few); Hyaline Casts,Urine None Seen per lpf (None-Few); RBC,Urine 0-3 per hpf (0-3); Squamous Epithelial Cell,Urine Many per lpf (None-Few); WBC,Urine 0-3 per hpf (0-3)
[2018-07-04 21:56] LABS: Amphetamine Screen,Urine Negative ng/mL (Cutoff=1000); Barbiturate Screen,Urine Positive ng/mL (Cutoff=200); Benzodiazepines Screen,Urine Negative ng/mL (Cutoff=200); Cannabinoid Screen,Urine Negative ng/mL (Cutoff = 50); Cocaine Screen,Urine Negative ng/mL (Cutoff= 300); Opiate Screen,Urine Negative ng/mL (Cutoff=300); Phencyclidine Screen,Urine Negative ng/mL (Cutoff=25)
[2018-07-04 22:24] LABS: Eosinophils % 0.5 %; Hemoglobin 7.2 g/dL (12.9-16.9); Immature Granulocytes % 0.5 % (0-4)
[2018-07-04 22:25] LABS: Immature Platelets 9.6 % (1.1-6.1); Lymphocytes # 0.4 K/mcL (0.6-4.6); Lymphocytes % 8.6 %; Mean Corpuscular HGB Conc 32.7 g/dL (31.6-35.5); Mean Corpuscular Hemoglobin 30.3 pg (28.0-33.3); Mean Corpuscular Volume 92.4 fL (83.0-100.0); Mean Platelet Volume 10.5 fL (9.4-12.4); Monocytes # 0.5 K/mcL (0.0-1.3); Monocytes % 12.5 %; Neutrophils # 3.2 K/mcL (1.6-8.9); Red Blood Count 2.38 M/mcL (4.19-5.50); Segmented Neutrophils % 77.9 %
[2018-07-04 22:29] LABS: INR 1.4; Prothrombin Time 16.2 Seconds (9.4-12.1)
--- NOTE | 2018-07-04 22:34 | Emergency Department Note ---
Disposition Clinical Impression: Thrombocytopenic, Suicidal ideation Anemia Qualifiers: Anemia type: unspecified type Qualified Code(s): D64.9 - Anemia, unspecified Compression fracture of lumbar vertebra Qualifiers: Encounter type: initial encounter Fracture type: closed Compression fracture of thoracic vertebra Qualifiers: Encounter type: initial encounter Fracture type: closed Qualified Code(s): S22.000A - Wedge compression fracture of unspecified thoracic vertebra, initial encounter for closed fracture Disposition: Admitted As Inpatient Referrals: NONE,PCP [Primary Care Provider] - Forms: ED Satisfaction Letter General Adult HPI - General Chief complaint: ED Back Pain/Injury Stated complaint: "Back Pain" Time Seen by Provider: 07/04/18 20:48 Source: patient Limitations: no limitations - History of Present Illness Pain Scale: 8 - Related Data Home Medications Medication Instructions Recorded Confirmed Atorvastatin Calcium [Lipitor] 20 mg PO HS 09/13/17 09/13/17 Baclofen [Lioresal] 10 mg PO BID 09/13/17 09/13/17 Carvedilol 3.125 mg PO BID 09/13/17 09/13/17 Fluconazole [Diflucan] 400 mg PO DAILY 09/13/17 09/13/17 Lacosamide [Vimpat] 200 mg PO Q12H 09/13/17 09/13/17 Lisinopril [Zestril] 5 mg PO DAILY 09/13/17 09/13/17 Multivitamin [One Daily 1 each PO DAILY 09/13/17 09/13/17 Multivitamin] OxyCODONE Immed Rel [Roxicodone 10 10 mg PO TID 09/13/17 09/13/17 MG] PHENobarbital [Phenobarbital] 64.8 mg PO Q12H 09/13/17 09/13/17 Quetiapine Fumarate [Seroquel] 50 mg PO TID 09/13/17 09/13/17 Sertraline [Zoloft] 50 mg PO DAILY 09/13/17 09/13/17 Warfarin [Coumadin] 3 mg PO 1800 09/13/17 09/13/17 Zolpidem [Ambien] 10 mg PO HS PRN 09/13/17 09/13/17 Previous Rx's Medication Instructions Recorded levETIRAcetam [Levetiracetam] 1,000 mg PO BID #30 tablet 01/14/17 Allergies Allergy/AdvReac Type Severity Reaction Status Date / Time amitriptyline [From Elavil] Allergy Seizure Verified 07/04/18 20:47 Past Medical History - Past Medical History Medical history: Reports: CVA, hyperlipidemia, hypertension, migraine, seizures Surgical history: Reports: no surgical history (none known) Psychiatric history: Reports: anxiety, depression, panic disorder - Social History Smoking Status: Current every day smoker Smokeless Tobacco Status: No Alcohol use: Reports: none Drug use: Reports: none Physical Exam - General Limitations: no limitations Course Vital Signs Temperature 98.9 F 07/04/18 20:39 Pulse Rate 118 07/04/18 20:39 Respiratory Rate 20 07/04/18 20:39 Blood Pressure 159/112 07/04/18 20:39 O2 Sat by Pulse Oximetry 100 07/04/18 20:39 Temperature 98.9 F 07/04/18 20:39 Pulse Rate 118 07/04/18 20:39 Respiratory Rate 20 07/04/18 20:39 Blood Pressure 159/112 07/04/18 20:39 O2 Sat by Pulse Oximetry 100 07/04/18 20:39 Oxygen Delivery Oxygen Delivery Room Air Medical Decision Making - Lab Data Result diagrams: 07/04/18 22:11 07/04/18 22:11 Lab Results 07/04/18 07/04/18 07/04/18 Range/Units 21:16 21:16 22:11 WBC 4.1 L (4.3-11.1) K/mcL RBC 2.38 L (4.19-5.50) M/mcL Hgb 7.2 L (12.9-16.9) g/dL Hct 22.0 L (37.5-50.1) % MCV 92.4 (83.0-100.0) fL MCH 30.3 (28.0-33.3) pg MCHC 32.7 (31.6-35.5) g/dL RDW 17.0 H (11.5-14.5) % Plt Count 74 L (140-400) K/mcL MPV 10.5 (9.4-12.4) fL Immature Gran % 0.5 (0-4) % Seg Neutrophils % 77.9 % Lymphocytes % 8.6 % Monocytes % 12.5 % Eosinophils % 0.5 % Basophils % 0.0 % Neutrophils # 3.2 (1.6-8.9) K/mcL Lymphocytes # 0.4 L (0.6-4.6) K/mcL Monocytes # 0.5 (0.0-1.3) K/mcL Eosinophils # 0.0 (0.0-0.6) K/mcL Basophils # 0.0 (0.0-0.2) K/mcL Platelet Estimate Decreased L (Normal) Immature Plt Fraction 9.6 H (1.1-6.1) % Hypochromasia Present A (Not Present) Anisocytosis 1+ A (Not Present) PT (9.4-12.1) Seconds INR Sodium (136-145) mEq/L Potassium (3.5-5.1) mEq/L Chloride (98-107) mEq/L Carbon Dioxide (23-29) mEq/L BUN (6-20) mg/dL Creatinine (0.70-1.30) mg/dL Est GFR ( Amer) (> 60) Est GFR (Non-Af Amer) (> 60) BUN/Creatinine Ratio (6-26) Glucose (70-105) mg/dL Calculated Osmolality (280-300) Lactic Acid (0.5-2.2) mmol/L Calcium (8.6-10.3) mg/dL Urine Color Yellow (Yellow) Urine Clarity Clear (Clear) Urine pH 7.0 (5.0-8.0) pH Units Ur Specific [place] 1.005 L (1.010-1.025) Urine Protein >=300 H (Neg-Trace) mg/dL Urine Glucose (UA) Normal (Normal) mg/dL Urine Ketones Negative (Negative) mg/dL Urine Blood Trace H (Negative) Urine Nitrite Negative (Negative) Urine Bilirubin Negative (Negative) Urine Urobilinogen Normal (Normal) mg/dL Ur Leukocyte Esterase Negative (Negative) Urine Microscopic RBC 0-3 (0-3) per hpf Urine Microscopic WBC 0-3 (0-3) per hpf Ur Squamous Epith Cells Many H (None-Few) per lpf Urine Bacteria None Seen (None-Few) per hpf Hyaline Casts None Seen (None-Few) per lpf Ur Culture Indicated? NO (NO) Salicylates (15.0-30.0) mg/dL Urine Opiates Screen Negative (Dddffx=250) ng/mL Acetaminophen (10-20) mcg/mL Ur Barbiturates Screen Positive H (Vdaoqp=033) ng/mL Ur Phencyclidine Scrn Negative (Cutoff=25) ng/mL Ur Amphetamines Screen Negative (Cogonp=2457) ng/mL Phenobarbital (15-40) mcg/mL U Benzodiazepines Scrn Negative (Vapbtg=496) ng/mL Urine Cocaine Screen Negative (Cutoff= 300) ng/mL U Marijuana (THC) Screen Negative (Cutoff = 50) ng/mL Ur Drug Screen Interp See Below Ethyl Alcohol (Less than 10) mg/dL 07/04/18 07/04/18 07/04/18 Range/Units 22:11 22:11 22:11 WBC (4.3-11.1) K/mcL RBC (4.19-5.50) M/mcL Hgb (12.9-16.9) g/dL Hct (37.5-50.1) % MCV (83.0-100.0) fL MCH (28.0-33.3) pg MCHC (31.6-35.5) g/dL RDW (11.5-14.5) % Plt Count (140-400) K/mcL MPV (9.4-12.4) fL Immature Gran % (0-4) % Seg Neutrophils % % Lymphocytes % % Monocytes % % Eosinophils % % Basophils % % Neutrophils # (1.6-8.9) K/mcL Lymphocytes # (0.6-4.6) K/mcL Monocytes # (0.0-1.3) K/mcL Eosinophils # (0.0-0.6) K/mcL Basophils # (0.0-0.2) K/mcL Platelet Estimate (Normal) Immature Plt Fraction (1.1-6.1) % Hypochromasia (Not Present) Anisocytosis (Not Present) PT 16.2 H (9.4-12.1) Seconds INR 1.4 Sodium 134 L (136-145) mEq/L Potassium 3.7 (3.5-5.1) mEq/L Chloride 99 (98-107) mEq/L Carbon Dioxide 24 (23-29) mEq/L BUN 10 (6-20) mg/dL Creatinine 1.07 (0.70-1.30) mg/dL Est GFR ( Amer) > 60 (> 60) Est GFR (Non-Af Amer) > 60 (> 60) BUN/Creatinine Ratio 9 (6-26) Glucose 102 (70-105) mg/dL Calculated Osmolality 277 L (280-300) Lactic Acid 0.9 (0.5-2.2) mmol/L Calcium 8.8 (8.6-10.3) mg/dL Urine Color (Yellow) Urine Clarity (Clear) Urine pH (5.0-8.0) pH Units Ur Specific [place] (1.010-1.025) Urine Protein (Neg-Trace) mg/dL Urine Glucose (UA) (Normal) mg/dL Urine Ketones (Negative) mg/dL Urine Blood (Negative) Urine Nitrite (Negative) Urine Bilirubin (Negative) Urine Urobilinogen (Normal) mg/dL Ur Leukocyte Esterase (Negative) Urine Microscopic RBC (0-3) per hpf Urine Microscopic WBC (0-3) per hpf Ur Squamous Epith Cells (None-Few) per lpf Urine Bacteria (None-Few) per hpf Hyaline Casts (None-Few) per lpf Ur Culture Indicated? (NO) Salicylates < 2.5 L (15.0-30.0) mg/dL Urine Opiates Screen (Vkxdxw=731) ng/mL Acetaminophen < 10 L (10-20) mcg/mL Ur Barbiturates Screen (Ztpbqw=957) ng/mL Ur Phencyclidine Scrn (Cutoff=25) ng/mL Ur Amphetamines Screen (Dlnuue=9949) ng/mL Phenobarbital 7 L (15-40) mcg/mL U Benzodiazepines Scrn (Vfjvqq=490) ng/mL Urine Cocaine Screen (Cutoff= 300) ng/mL U Marijuana (THC) Screen (Cutoff = 50) ng/mL Ur Drug Screen Interp Ethyl Alcohol < 10 (Less than 10) mg/dL Critical Care Time Critical Care Time: Yes Total Critical Care Time: 30 Attestation: time spent in medical management of multiple systems, poor historian, consult with hospitalist Attestation Statement - Attestation Attestation: I examined this patient and my medical decision-making was reviewed with the Resident Physician. I agree with the documented findings, disposition and treatment plan as described except to the extent set forth below. 38-year-old male in presented to the emergency room for pain all over. States is a history of chronic pain in his back but states is been worse lately. Simply mostly pain throughout the thoracic or lumbar spine. He states he has frequent falls and is unsure if he hurt his back. Patient has a history of subdural hematoma, seizure disorder. Per old reports patient is on Keppra and phenobarbital. Patient has been seen before by neurology here. We did a CT of the lumbar spine which shows some new compression fractures. It is unknown exactly how old they are but they were not seen on previous CT back in 2017.
[2018-07-04 22:43] LABS: Acetaminophen < 10 mcg/mL (10-20); Ethanol < 10 mg/dL (Less than 10); Salicylate < 2.5 mg/dL (15.0-30.0)
[2018-07-04 22:44] LABS: Platelet Count 74 K/mcL (140-400)
[2018-07-04 22:45] LABS: Anisocytosis 1+ (Not Present); Hypochromasia Present (Not Present)
[2018-07-04 22:46] LABS: Platelet Estimate Decreased (Normal)
[2018-07-04 22:49] LABS: BUN/Creatinine Ratio 9 (6-26); Blood Urea Nitrogen 10 mg/dL (6-20); Calcium 8.8 mg/dL (8.6-10.3); Carbon Dioxide 24 mEq/L (23-29); Chloride 99 mEq/L (98-107); Glucose 102 mg/dL (70-105); Osmolality,Calculated 277 (280-300); Potassium 3.7 mEq/L (3.5-5.1); Sodium 134 mEq/L (136-145); eGFR For Non-African Americans > 60 (> 60)
[2018-07-04] MEDS ORDERED: *HR* LORazepam 2 MG/ML VIAL IVP ONE (23:52)
[2018-07-05] MEDS ORDERED: Melatonin 3 MG TABLET PO ONE (01:56)
[2018-07-05] MEDS: *HR* OxyCODONE Immed Rel 5 MG TABLET PO PRN ×2 (02:16→21:36)
[2018-07-05] MEDS ORDERED: *HR* LORazepam 2 MG/ML VIAL ONE (03:58)
[2018-07-05] MEDS ORDERED: *HR* LORazepam 2 MG/ML VIAL IVP ONE ×2 (04:00→04:01)
[2018-07-05] MEDS ORDERED: Isovue-370 500 ML INFUS..BTL IV ONE (04:05)
[2018-07-05] MEDS ORDERED: levETIRAcetam 1,000 MG in 0.9 % Sodium Chloride 100 ML IVPB ONE (04:16)
[2018-07-05] MEDS ORDERED: Naloxone 0.4 MG/ML INJ IVP PRN (04:20)
--- NOTE | 2018-07-05 04:48 | Internal Med History&Physical ---
Date of Encounter: 07/05/18 Time of Encounter: 03:56 Internal Medicine - H&P: HPI Chief complaint: back pain; suicidal Admitted From: Emergency Dept Plans for Post Hospital Care: Transfer Psych Facility History of present illness: Mr. Arguello is a 38 year old male who was admitted to hospitalist service earlier this evening with complaints of generalized pain, new compression fracture in his thoracic spine, and anemia. Additionally, he reported to ER staff that he was suicidal and, as such, he was admitted for suicidal ideations and pink slipped and had a sitter with him. Before I could see and assess patient, a Rapid Response was called on this patient, and he suffered a seizure. He received Ativan 2 doses and his seizures were aborted. He is somnolent and postictal now. During the rapid response, I reviewed with the nurse his old medications which have not been confirmed yet. He is on Coumadin. Given his anemia, low platelets, compression fractures, and new onset seizure, I was worried about an intracranial bleed. I therefore ordered a STAT CT of the head to rule out bleed , and this was negative. He is now resting in bed comfortably and somnolent. He is being loaded on Keppra per pharmacy guidance. No further history is available from patient and there are no family members present. Past Med Surg Social Fam HX - Past Medical History Source: old records reviewed, other (ER notes) Medical history: CVA, hyperlipidemia, hypertension, migraine, renal disease, seizures Additional medical history: TBI Psychiatric history: anxiety, depression, panic disorder - Past Surgical History Surgical History: tracheostomy Additional surgical history: brain surgery - Social History Smoking Status: Current every day smoker Smokeless Tobacco Status: No Alcohol use: none Drug use: none Current living situation: With Family - Family History Mother History Unknown: Yes Father History Unknown: Yes Internal Medicine - H&P: Meds levETIRAcetam [Levetiracetam] 1,000 mg PO BID #30 tablet 01/14/17 [Rx] Atorvastatin Calcium [Lipitor] 20 mg PO HS 09/13/17 [History] Baclofen [Lioresal] 10 mg PO BID 09/13/17 [History] Carvedilol 3.125 mg PO BID 09/13/17 [History] Fluconazole [Diflucan] 400 mg PO DAILY 09/13/17 [History] Lacosamide [Vimpat] 200 mg PO Q12H 09/13/17 [History] Lisinopril [Zestril] 5 mg PO DAILY 09/13/17 [History] Multivitamin [One Daily Multivitamin] 1 each PO DAILY 09/13/17 [History] OxyCODONE Immed Rel [Roxicodone 10 MG] 10 mg PO TID 09/13/17 [History] PHENobarbital [Phenobarbital] 64.8 mg PO Q12H 09/13/17 [History] Quetiapine Fumarate [Seroquel] 50 mg PO TID 09/13/17 [History] Sertraline [Zoloft] 50 mg PO DAILY 09/13/17 [History] Warfarin [Coumadin] 3 mg PO 1800 09/13/17 [History] Zolpidem [Ambien] 10 mg PO HS PRN 09/13/17 [History] 3 Allergy/AdvReac Type Severity Reaction Status Date / Time amitriptyline [From Elavil] Allergy Seizure Verified 07/04/18 20:47 ROS unobtainable: due to mental status (post-ictal presently) - Constitutional Vitals: Temp Pulse Resp BP Pulse Ox 99.5 F 117 24 147/85 97 07/05/18 04:05 07/05/18 04:05 07/05/18 04:05 07/05/18 04:05 07/05/18 04:05 General appearance: Present: cachectic Exam: post-ictal now; maintaining his airway; snoring - Head Head exam: Present: atraumatic, normal inspection - Eye Eye exam: Present: PERRL. Absent: scleral icterus - ENT ENT exam: Present: mucous membranes dry Additional comments: healed tracheostomy scar - Neck Neck exam general surgery: Present: full ROM, supple. Absent: tenderness, nuchal rigidity, thyromegaly - Respiratory Respiratory exam: Present: rhonchi. Absent: accessory muscle use, chest wall tenderness, rales, wheezes, tachypnea - Cardiovascular Cardiovascular exam: Present: RRR, +S1, +S2. Absent: diastolic murmur, systolic murmur - GI/Abdominal GI/Abdominal exam: Present: soft. Absent: hepatomegaly, mass, splenomegaly, tenderness - Extremities Exam Extremities exam: Present: full ROM, normal capillary refill, warm, radial pulses palpable and symmetrical. Absent: calf tenderness, joint swelling Additional comments: scar with scab/bleeding wound on left forearm from reported IV infiltration site - Neurological Exam Neurological exam: Present: altered Additional comments: actively seizing during rapid response -- responded to 2 doses of Ativan 2 mg each; post-ictal now - Psychiatric Additional comments: unable to assess - Skin Skin exam: Present: dry, warm Internal Med - H&P Results - Labs CBC & Chem 7: 07/04/18 22:11 07/04/18 22:11 - Impressions ITS Impressions Head CT 07/05/18 04:05 IMPRESSION: No acute intracranial abnormality. Atrophy and encephalomalacia. Stable examination. D/ / Esteban Khan MD / Esteban Khan MD Interpreting Provider: Esteban Khan MD - Assessment and plan (1) Seizure Current Visit: Yes Status: Acute Assessment and plan: 1. Rapid Response called as above. 2. Ativan aborted seizure. 3. Keppra load per pharmacy, then BID dosing. 4. Seizure precautions. 5. Neurology consult. 6. Will order STAT CMP, CBC, Magnesium. 7. CT Head as above negative for ICH. (2) Compression fracture of lumbar vertebra Current Visit: Yes Status: Acute Assessment and plan: 1. Pain control and orthopedic consult once stable from seizure standpoint. Qualifiers: Encounter type: initial encounter Lumbar vertebra fracture level: L5 Fracture type: closed Qualified Code(s): S32.050A - Wedge compression fracture of fifth lumbar vertebra, initial encounter for closed fracture (3) Compression fracture of thoracic vertebra Current Visit: Yes Status: Acute Assessment and plan: 1. Pain control and orthopedics consult as above. Qualifiers: Encounter type: initial encounter Fracture type: closed Qualified Code(s) : S22.000A - Wedge compression fracture of unspecified thoracic vertebra, initial encounter for closed fracture (4) Suicidal ideation Current Visit: Yes Status: Acute Assessment and plan: 1. Suicide precautions and 24 hour sitter. 2. Consult psychiatry when medically stable. (5) Anemia Current Visit: Yes Status: Chronic Assessment and plan: 1. Unknown etiology. 2. Will need stool hemoccult and work-up. 3. Monitor H/H and type/cross for possible transfusion. Qualifiers: Anemia type: unspecified type Qualified Code(s): D64.9 - Anemia, unspecified (6) DVT prophylaxis Current Visit: Yes Status: Acute Assessment and plan: 1. EPCD's.
[2018-07-05] MEDS: 0.9 % Sodium Chloride w KCl 20 MEQ/1,000 ML MLS IVC SCH ×2 (04:56→15:19)
[2018-07-05 05:10] LABS: Basophils % 0.3 %; Hemoglobin 7.1 g/dL (12.9-16.9); Monocytes % 14.7 %
[2018-07-05 05:11] LABS: Hematocrit 21.2 % (37.5-50.1); Immature Granulocytes % 0.5 % (0-4); Immature Platelets 9.2 % (1.1-6.1); Lymphocytes # 0.4 K/mcL (0.6-4.6); Lymphocytes % 9.3 %; Mean Corpuscular HGB Conc 33.5 g/dL (31.6-35.5); Mean Corpuscular Hemoglobin 31.3 pg (28.0-33.3); Mean Corpuscular Volume 93.4 fL (83.0-100.0); Mean Platelet Volume 11.5 fL (9.4-12.4); Monocytes # 0.6 K/mcL (0.0-1.3); Neutrophils # 2.9 K/mcL (1.6-8.9); Red Blood Count 2.27 M/mcL (4.19-5.50); Red Cell Distribution Width 17.1 % (11.5-14.5); Segmented Neutrophils % 74.2 %
[2018-07-05 05:14] LABS: Platelet Count 68 K/mcL (140-400)
[2018-07-05 05:15] LABS: INR 1.5; Prothrombin Time 16.6 Seconds (9.4-12.1)
[2018-07-05 05:17] LABS: Activated Partial Thrombo Time 91.5 Seconds (26.0-36.0)
[2018-07-05 05:26] LABS: Alanine Aminotransferase 9 Units/L (7-52); Albumin 3.5 g/dL (3.5-5.7); Albumin/Globulin Ratio 1.2 (1.1-2.2); Alkaline Phosphatase 119 Units/L (34-104); Aspartate Amino Transferase 13 Units/L (13-39); BUN/Creatinine Ratio 8 (6-26); Bilirubin,Total 0.4 mg/dL (0.3-1.0); Blood Urea Nitrogen 9 mg/dL (6-20); Calcium 8.7 mg/dL (8.6-10.3); Carbon Dioxide 25 mEq/L (23-29); Chloride 101 mEq/L (98-107); Globulin 2.9 g/dL (2.4-3.5); Glucose 120 mg/dL (70-105); Magnesium 1.7 mg/dL (1.6-2.6); Osmolality,Calculated 280 (280-300); Potassium 3.9 mEq/L (3.5-5.1); Sodium 135 mEq/L (136-145); Total Protein 6.4 g/dL (6.4-8.9); eGFR For Non-African Americans > 60 (> 60)
[2018-07-05] MEDS: *HR* LORazepam 2 MG/ML VIAL IVP PRN ×2 (09:45→11:05)
[2018-07-05 10:13] LABS: Hematocrit 21.4 % (37.5-50.1); Hemoglobin 7.1 g/dL (12.9-16.9)
--- NOTE | 2018-07-05 10:55 | Neurology - Consult Note ---
Addendum entered and electronically signed by Wendy Carrasco MD 07/05/18 15:13: Patient seen and examined. I agree with Dr. Khushi Harris's history taking, physical examination, assessment and plan, except with addition of treatment plan due to development of recurrent seizures. Patient known to me and was last seen 10/2017 due to seizure disorder, and history of subdural hematoma and encephalomalacia. Been on Vimpta 200mg bid, Keppra 1000mg bid and Phenobarbital 64.8mg bid and was doing reasonably well. Lately been having more seizures due to having lots of back pain. Admits that he has tremors and with the seizures he remember parts of them Came to ER due to increasing back pain but since in the ER he has had multiple seizure like episodes, 4 since admission to the medical floor. Seizures are described as legs drawing up at the knee, right arm drawing at the elbow and stiffening for 2-4 minutes, without shaking. No tongue biting and no urinary incontinence observed. Patient admits that he remembered that she has tremors. He was given ativen prn. One hour after Ativan he was wide awake and able to converse, and stat EEG showed no seizures, no epileptiform discharges but diffuse slowing with sedative effects. Patient is in ICU for observation. No focal neurological deficits noted. Impression: patient with history of partial seizure Plan: 1. Will continue keppra 1000mg q12 hours IV, Vimpat 200mg IV bid and Phenobarbital 100mg q12 hours, ativan prn for breakthrough seizures. 2. switch to oral form when applicable, keppra 1000mg bid, vimpat 200mg bid and Phenobarbital 64.8mg bid. 3. Medical and supportive care. 4. Will avoid higher dose of Phenobarbital due to concerns of it causing more sedation. 5. Medical and supportive care. Will follow up in AM Original Note: <Wendy Carrasco - Last Filed: 07/05/18 15:11> Date of Encounter: 07/05/18 Time of Encounter: 13:00 History of Present Illness HPI: Mr. Arguello is a 38 year old male Medications and Allergies levETIRAcetam [Levetiracetam] 1,000 mg PO BID #30 tablet 01/14/17 [Rx] Atorvastatin Calcium [Lipitor] 20 mg PO HS 09/13/17 [History] Baclofen [Lioresal] 10 mg PO BID 09/13/17 [History] Fluconazole [Diflucan] 400 mg PO DAILY 09/13/17 [History] Lacosamide [Vimpat] 200 mg PO Q12H 09/13/17 [History] Multivitamin [One Daily Multivitamin] 1 each PO DAILY 09/13/17 [History] OxyCODONE Immed Rel [Roxicodone 10 MG] 10 mg PO TID 09/13/17 [History] PHENobarbital [Phenobarbital] 64.8 mg PO Q12H 09/13/17 [History] Quetiapine Fumarate [Seroquel] 50 mg PO TID 09/13/17 [History] Sertraline [Zoloft] 50 mg PO DAILY 09/13/17 [History] Warfarin [Coumadin] 6 mg PO DAILY 09/13/17 [History] 3 Allergy/AdvReac Type Severity Reaction Status Date / Time amitriptyline [From [facility]] Allergy Seizure Verified 07/04/18 20:47 All Systems: The remainder of the systems were reviewed and are negative Physical Examination - Vital Signs Vital Signs: Initial Vital Signs Temp Pulse Resp BP Pulse Ox 98.9 F 118 20 159/112 100 07/04/18 20:39 07/04/18 20:39 07/04/18 20:39 07/04/18 20:39 07/04/18 20:39 Results - Laboratory Findings CBC and BMP: 07/05/18 09:59 07/05/18 04:52 Abnormal lab findings: Abnormal lab results WBC 3.9 K/mcL (4.3-11.1) L 07/05/18 04:52 RBC 2.27 M/mcL (4.19-5.50) L 07/05/18 04:52 Hgb 7.1 g/dL (12.9-16.9) L 07/05/18 09:59 Hct 21.4 % (37.5-50.1) L 07/05/18 09:59 RDW 17.1 % (11.5-14.5) H 07/05/18 04:52 Plt Count 68 K/mcL (140-400) L 07/05/18 04:52 Lymphocytes # 0.4 K/mcL (0.6-4.6) L 07/05/18 04:52 Platelet Estimate Decreased (Normal) L 07/04/18 22:11 Immature Plt Fraction 9.2 % (1.1-6.1) H 07/05/18 04:52 Hypochromasia Present (Not Present) A 07/04/18 22:11 Anisocytosis 1+ (Not Present) A 07/04/18 22:11 PT 16.6 Seconds (9.4-12.1) H 07/05/18 04:52 APTT 91.5 Seconds (26.0-36.0) H 07/05/18 04:52 Sodium 135 mEq/L (136-145) L 07/05/18 04:52 Glucose 120 mg/dL (70-105) H 07/05/18 04:52 POC Glucose 116 mg/dL (70-99) H 07/05/18 11:09 Alkaline Phosphatase 119 Units/L (34-104) H 07/05/18 04:52 Ur Specific [place] 1.005 (1.010-1.025) L 07/04/18 21:16 Urine Protein >=300 mg/dL (Neg-Trace) H 07/04/18 21:16 Urine Blood Trace (Negative) H 07/04/18 21:16 Ur Squamous Epith Cells Many per lpf (None-Few) H 07/04/18 21:16 Salicylates < 2.5 mg/dL (15.0-30.0) L 07/04/18 22:11 Acetaminophen < 10 mcg/mL (10-20) L 07/04/18 22:11 Ur Barbiturates Screen Positive ng/mL (Megmfb=825) H 07/04/18 21:16 Phenobarbital 7 mcg/mL (15-40) L 07/04/18 22:11 Consult Discharge Plan - Plan Referrals: NONE,PCP [Primary Care Provider] - <Khushi Harris - Last Filed: 07/05/18 16:33> Date of Encounter: 07/05/18 Time of Encounter: 10:55 Assessment and Plan (1) Seizure Current Visit: Yes Status: Chronic Patient has a history of a subdural hematoma and seizure disorder Patient had a seizure on admission that was aborted with 2 doses of ativan. Another seizure this morning that was aborted with one dose of ativan CT head was negative for bleed, positive for atrophy and encephalomalacia that is stable per [facility] he is prescribed keppra, phenobarbital, and vimpat Patient states that he is compliant with all of his medications, but can not recall the names or number of seizure medications Phenobarbital level was subtherapeutic at 7 Patient has a history of stroke and is on coumadin, INR was subtherapeutic at 1.5 Due to the subtherapeutic levels of his medications it is possible the patient may be noncompliant with his medications, or requires an increase in his dosing Keppra level was ordered, but the patient had received keppra after his first seizure on admission. Results pending (2) Pancytopenia Current Visit: Yes Status: Acute Patient has normochromic normocytic anemia of unknown origin, awaiting workup He also has decreased WBC count of 3.9, and decreased platelet count of 68 Recommend hematology-oncology consultation and blood smear for further workup (3) Compression fracture of lumbar vertebra Current Visit: Yes Status: Acute No neurological deficit noted on exam in lower extremities pain control and orthopedic consult Qualifiers: Encounter type: initial encounter Lumbar vertebra fracture level: L5 Fracture type: closed Qualified Code(s): S32.050A - Wedge compression fracture of fifth lumbar vertebra, initial encounter for closed fracture (4) Compression fracture of thoracic vertebra Current Visit: Yes Status: Acute No neurological deficit noted on exam in lower extremities pain control and orthopedic consult Qualifiers: Encounter type: initial encounter Fracture type: closed Qualified Code(s) : S22.000A - Wedge compression fracture of unspecified thoracic vertebra, initial encounter for closed fracture (5) DVT prophylaxis Current Visit: Yes Status: Acute EPCDs due to anemia History of Present Illness Chief complaint: Seizure disorder HPI: Mr. Arguello is a 38 year old male with a previous history of subdural hematoma and known seizure disorder managed on Keppra, phenobarbital, and Vimpat per [facility] records. Hospital records from current admission state keppra and phenobarbital only. Patient presented to the ED initially for severe back pain, CT thoracic and lumbar spine revealed multiple thoracic compression fractures that have increased over the past year as well as a new L5 compression fracture. During his ED visit patient was reported to verbalize suicidal intent and he was admitted. Upon admission patient suffered a seizure which was aborted with [address] head was negative. Of note patient had several ED visits in May 2017 for seizure activity and was ultimately transferred to [facility] per ED documentation for management for his seizures. Patient received 1000mg keppra overnight after this seizure. This morning the patient experienced another 45second seizure per nursing where he reportedly flexed his hips and had shaking like activity of the upper extremities. This was aborted with one dose of ativan and the patient was post ictal after. Patient was seen and examined after his seizure this morning and he was mildly confused and somnolent at the time. He was able to answer some questions, patient states that he has several seizures at home, almost daily, but does not visit the ER for these events. He lives with his mother who takes care of him. He reports that he is compliant with his seizure medications but can not recall the names or number of seizure medications that he takes. He states that he has a mild headache at this time and dormant back pain as well, but no numbness, parasthesias, or unilateral weakness. Past Med Surg Social Fam HX - Past Medical History Medical history: CVA, hyperlipidemia, hypertension, migraine, renal disease, seizures Additional medical history: TBI Psychiatric history: anxiety, depression, panic disorder - Past Surgical History Surgical History: tracheostomy Additional surgical history: brain surgery - Social History Smoking Status: Current every day smoker Smokeless Tobacco Status: No Alcohol use: none Drug use: none - Family History Mother History Unknown: Yes Father History Unknown: Yes ROS unobtainable: due to mental status All Systems: The remainder of the systems were reviewed and are negative Review of Systems: Admits to mild generalized headache and back pain. denies decreased sensation, numbness, parasthesias, or unilateral weakness. Physical Examination - Vital Signs Vital Signs: Initial Vital Signs Temp Pulse Resp BP Pulse Ox 98.9 F 118 20 159/112 100 07/04/18 20:39 07/04/18 20:39 07/04/18 20:39 07/04/18 20:39 07/04/18 20:39 - Exam Exam: General: somnolent, often falls asleep during questioning and exam. recently had seizure which was aborted with ativan. Cachectic in appearance HEENT: Pupils are mildly dilated bilaterally but respond to light. does not respond to commands for EOM testing. Heart: regular rate and rhythm, no murmurs Lungs: Clear to auscultation bilaterally Abdomen: soft, non tender, positive bowel sounds Skin: Echymosis on left arm of unknown etiology, evidence of lesions with poor wound healing on left forearm and lower extremities Neurological: patient admits to normal sensation bilaterally in face and all four extremities. 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 RUE and LUE strength is 5/5 bilaterally and symmetric. LUE and LLE strength is 5/5 bilaterally and symmetric. Psych: patient appears tired and becomes mildly agitated when redirected to answer questions and during examination Results - Laboratory Findings CBC and BMP: 07/05/18 09:59 07/05/18 04:52 Abnormal lab findings: Abnormal lab results WBC 3.9 K/mcL (4.3-11.1) L 07/05/18 04:52 RBC 2.27 M/mcL (4.19-5.50) L 07/05/18 04:52 Hgb 7.1 g/dL (12.9-16.9) L 07/05/18 09:59 Hct 21.4 % (37.5-50.1) L 07/05/18 09:59 RDW 17.1 % (11.5-14.5) H 07/05/18 04:52 Plt Count 68 K/mcL (140-400) L 07/05/18 04:52 Lymphocytes # 0.4 K/mcL (0.6-4.6) L 07/05/18 04:52 Platelet Estimate Decreased (Normal) L 07/04/18 22:11 Immature Plt Fraction 9.2 % (1.1-6.1) H 07/05/18 04:52 Hypochromasia Present (Not Present) A 07/04/18 22:11 Anisocytosis 1+ (Not Present) A 07/04/18 22:11 PT 16.6 Seconds (9.4-12.1) H 07/05/18 04:52 APTT 91.5 Seconds (26.0-36.0) H 07/05/18 04:52 Sodium 135 mEq/L (136-145) L 07/05/18 04:52 Glucose 120 mg/dL (70-105) H 07/05/18 04:52 Alkaline Phosphatase 119 Units/L (34-104) H 07/05/18 04:52 Ur Specific [place] 1.005 (1.010-1.025) L 07/04/18 21:16 Urine Protein >=300 mg/dL (Neg-Trace) H 07/04/18 21:16 Urine Blood Trace (Negative) H 07/04/18 21:16 Ur Squamous Epith Cells Many per lpf (None-Few) H 07/04/18 21:16 Salicylates < 2.5 mg/dL (15.0-30.0) L 07/04/18 22:11 Acetaminophen < 10 mcg/mL (10-20) L 07/04/18 22:11 Ur Barbiturates Screen Positive ng/mL (Yrbfra=934) H 07/04/18 21:16 Phenobarbital 7 mcg/mL (15-40) L 07/04/18 22:11
[2018-07-05] MEDS ORDERED: LORazepam 20 MG in 0.9 % Sodium Chloride Excel Bg 240 ML IVC SCH (11:15)
[2018-07-05] MEDS ORDERED: SODIUM CHLORIDE 0.9% IVC SCH (12:00)
[2018-07-05] MEDS ORDERED: LORAZEPAM IVC SCH (12:00)
--- NOTE | 2018-07-05 12:34 | Event Note ---
Date of Encounter: 07/05/18 Time of Encounter: 12:30 Seen and assessed. Agree with plan per nightime hospitalist for seizures and ideation Patient noted to have multiple seizures this am and was started on an ativan drip with neuro consultation. Plan for EEG Follow up psych recs for suicidal ideation. Discussed with neuro, EEG came back negative. Will d/c ativan drip and load with phenobarbital. Obtain phenobarbital levels in am and monitor
[2018-07-05] MEDS ORDERED: PHENOBARBITAL IVPB SCH (14:30)
--- NOTE | 2018-07-05 14:38 | EEG/EMG/Oth Biometrics Report ---
EEG Procedure Report Date of procedure: 07/05/18 Procedure Note: Medications: keppra, Vimpat, Phenobarbital and Ativan Report: This EEG was acquired with standard international 10-20 electrode placement system with EKG recording. The background activity during this EEG was replaced by a diffusely suppressed, low amplitude fast activity with superimposed delta activity. The background activity was reactive to movements. Sleep stages were not fully identified. Intermittent rapid blinking noted during the recording. There are no electrographic seizures identified during this tracing. There are no epileptiform discharges and focal slowing noted during this recording. Photic stimulation produced no abnormalities. HV not performed during this study. EKG tracing showed no significant cardiac dysarrhythmia. Impression: This is an abnormal EEG due to presence of diffuse background slowing and suppression. Clinical Correlation: This EEG is consistent with moderate to severe diffuse cerebral dysfunction that can be seen in patients with encephalopathy likely secondary to sedative effects, as the patient has Ativan injection about one hour prior to the study. No electrographic seizures or epileptiform changes are identified. Please correlate clinically.
[2018-07-05] MEDS: PHENOBARBITAL IVPB SCH ×2 (15:19→21:38)
[2018-07-05] MEDS: SODIUM CHLORIDE 0.9% IVPB SCH ×2 (15:19→21:38)
[2018-07-05] MEDS ORDERED: 0.9 % Sodium Chloride 250 ML ONE (15:49)
--- NOTE | 2018-07-05 16:08 | Consult Note ---
Date of Encounter: 07/05/18 Time of Encounter: 15:00 Assessment & Recommendation (1) Major depressive disorder Current visit: Yes Status: Acute Assessment & Recommendation: continue 1: start zoloft 50 mg hold seroquel Qualifiers: Major depression recurrence: recurrent Major depression episode severity: severe Psychotic features: without psychotic features Qualified Code(s): F33.2 - Major depressive disorder, recurrent severe without psychotic features (2) Suicidal ideation Current visit: Yes Status: Acute History of Present Illness Patient: new to practice Requesting Physician: Stiven Langley MD Reason for consult: pink slip on chart. History of present illness: Mr. Arguello is a 38 year old male consulted today for pink slip in chart. Patient was transferred to ICU from the floor. He has been having intractible seizures ,he was able to give history has some confusion , slow to respond . Talked to the nurse who stated patient endorsed suicidal ideation and he has sitter. Patient has h/o depression and on medication seroquel and zoloft is seen at [facility] for his psychiatric needs. He stated I came here bc i was not feeling good, i am messing my self up. states he does not remember his medications , he lives with his mother who has stage 4 cancer and that worries him because his mother said its embedded in genes and i am also having bad health. he had teary eyes , sad , but denied suicidal ideation, he is still confused , he was looking at milan and roof but denied visual hallucinations stated he is curious. at present unable to get more info. A/P h/o Major Depression and Suicidal ideation. Please continue 1:1 till for 24 hrs and will reevaluate him . Thank you for consult. CC: Stiven Langley MD Past Med Surg Social Fam HX - Past Medical History Medical history: CVA, hyperlipidemia, hypertension, migraine, renal disease, seizures - Past Psychiatric History Psychiatric history: Reports: depression, panic disorder, prior suicide attempt , previous psychiatric hospitalization Family psychiatric history: Unknown Family History of Suicide: Unknown - Past Surgical History Surgical History: tracheostomy - Social History Smoking Status: Current every day smoker Smokeless Tobacco Status: No Alcohol use: none Drug use: none - Family History Mother History Unknown: Yes Father History Unknown: Yes Medications & Allergies levETIRAcetam [Levetiracetam] 1,000 mg PO BID #30 tablet 01/14/17 [Rx] Atorvastatin Calcium [Lipitor] 20 mg PO HS 09/13/17 [History] Baclofen [Lioresal] 10 mg PO BID 09/13/17 [History] Fluconazole [Diflucan] 400 mg PO DAILY 09/13/17 [History] Lacosamide [Vimpat] 200 mg PO Q12H 09/13/17 [History] Multivitamin [One Daily Multivitamin] 1 each PO DAILY 09/13/17 [History] OxyCODONE Immed Rel [Roxicodone 10 MG] 10 mg PO TID 09/13/17 [History] PHENobarbital [Phenobarbital] 64.8 mg PO Q12H 09/13/17 [History] Quetiapine Fumarate [Seroquel] 50 mg PO TID 09/13/17 [History] Sertraline [Zoloft] 50 mg PO DAILY 09/13/17 [History] Warfarin [Coumadin] 6 mg PO DAILY 09/13/17 [History] 3 Allergy/AdvReac Type Severity Reaction Status Date / Time amitriptyline [From [facility]] Allergy Seizure Verified 07/04/18 20:47 Review of Systems Psychiatric: Reports: depression, suicidal ideation, difficulty concentrating Psychiatry Exam - Constitutional Vitals: Temp Pulse Resp BP Pulse Ox 98.3 F 109 12 129/85 100 07/05/18 15:00 07/05/18 15:00 07/05/18 15:00 07/05/18 15:00 07/05/18 15:00 General appearance: age & developmentally appropriate, thin - Psychiatric Patient Orientation: Yes Place Level of alertness: Alert Behavior: cooperative Eye Contact: Minimal Contact Affect description: constricted Speech Volume: Soft/Quiet Speech pattern: slowed Thought Content: Yes Preoccupation Attention Span Ability: Unable to Sustain Attention Intelligence Estimate: Average Judgment: Poor Insight: Partial Results - Labs Labs: Laboratory Last Values WBC 3.9 K/mcL (4.3-11.1) L 07/05/18 04:52 RBC 2.27 M/mcL (4.19-5.50) L 07/05/18 04:52 Hgb 7.1 g/dL (12.9-16.9) L 07/05/18 09:59 Hct 21.4 % (37.5-50.1) L 07/05/18 09:59 MCV 93.4 fL (83.0-100.0) 07/05/18 04:52 MCH 31.3 pg (28.0-33.3) 07/05/18 04:52 MCHC 33.5 g/dL (31.6-35.5) 07/05/18 04:52 RDW 17.1 % (11.5-14.5) H 07/05/18 04:52 Plt Count 68 K/mcL (140-400) L 07/05/18 04:52 MPV 11.5 fL (9.4-12.4) 07/05/18 04:52 Immature Gran % 0.5 % (0-4) 07/05/18 04:52 Seg Neutrophils % 74.2 % 07/05/18 04:52 Lymphocytes % 9.3 % 07/05/18 04:52 Monocytes % 14.7 % 07/05/18 04:52 Eosinophils % 1.0 % 07/05/18 04:52 Basophils % 0.3 % 07/05/18 04:52 Neutrophils # 2.9 K/mcL (1.6-8.9) 07/05/18 04:52 Lymphocytes # 0.4 K/mcL (0.6-4.6) L 07/05/18 04:52 Monocytes # 0.6 K/mcL (0.0-1.3) 07/05/18 04:52 Eosinophils # 0.0 K/mcL (0.0-0.6) 07/05/18 04:52 Basophils # 0.0 K/mcL (0.0-0.2) 07/05/18 04:52 Platelet Estimate Decreased (Normal) L 07/04/18 22:11 Immature Plt Fraction 9.2 % (1.1-6.1) H 07/05/18 04:52 Hypochromasia Present (Not Present) A 07/04/18 22:11 Anisocytosis 1+ (Not Present) A 07/04/18 22:11 PT 16.6 Seconds (9.4-12.1) H 07/05/18 04:52 INR 1.5 07/05/18 04:52 APTT 91.5 Seconds (26.0-36.0) H 07/05/18 04:52 Sodium 135 mEq/L (136-145) L 07/05/18 04:52 Potassium 3.9 mEq/L (3.5-5.1) 07/05/18 04:52 Chloride 101 mEq/L (98-107) 07/05/18 04:52 Carbon Dioxide 25 mEq/L (23-29) 07/05/18 04:52 BUN 9 mg/dL (6-20) 07/05/18 04:52 Creatinine 1.07 mg/dL (0.70-1.30) 07/05/18 04:52 Est GFR ( Amer) > 60 (> 60) 07/05/18 04:52 Est GFR (Non-Af Amer) > 60 (> 60) 07/05/18 04:52 BUN/Creatinine Ratio 8 (6-26) 07/05/18 04:52 Glucose 120 mg/dL (70-105) H 07/05/18 04:52 POC Glucose 116 mg/dL (70-99) H 07/05/18 11:09 Calculated Osmolality 280 (280-300) 07/05/18 04:52 Lactic Acid 0.9 mmol/L (0.5-2.2) 07/04/18 22:11 Calcium 8.7 mg/dL (8.6-10.3) 07/05/18 04:52 Magnesium 1.7 mg/dL (1.6-2.6) 07/05/18 04:52 Total Bilirubin 0.4 mg/dL (0.3-1.0) 07/05/18 04:52 AST 13 Units/L (13-39) 07/05/18 04:52 ALT 9 Units/L (7-52) 07/05/18 04:52 Alkaline Phosphatase 119 Units/L (34-104) H 07/05/18 04:52 Serum Total Protein 6.4 g/dL (6.4-8.9) 07/05/18 04:52 Albumin 3.5 g/dL (3.5-5.7) 07/05/18 04:52 Globulin 2.9 g/dL (2.4-3.5) 07/05/18 04:52 Albumin/Globulin Ratio 1.2 (1.1-2.2) 07/05/18 04:52 Urine Color Yellow (Yellow) 07/04/18 21:16 Urine Clarity Clear (Clear) 07/04/18 21:16 Urine pH 7.0 pH Units (5.0-8.0) 07/04/18 21:16 Ur Specific [place] 1.005 (1.010-1.025) L 07/04/18 21:16 Urine Protein >=300 mg/dL (Neg-Trace) H 07/04/18 21:16 Urine Glucose (UA) Normal mg/dL (Normal) 07/04/18 21:16 Urine Ketones Negative mg/dL (Negative) 07/04/18 21:16 Urine Blood Trace (Negative) H 07/04/18 21:16 Urine Nitrite Negative (Negative) 07/04/18 21:16 Urine Bilirubin Negative (Negative) 07/04/18 21:16 Urine Urobilinogen Normal mg/dL (Normal) 07/04/18 21:16 Ur Leukocyte Esterase Negative (Negative) 07/04/18 21:16 Urine Microscopic RBC 0-3 per hpf (0-3) 07/04/18 21:16 Urine Microscopic WBC 0-3 per hpf (0-3) 07/04/18 21:16 Ur Squamous Epith Cells Many per lpf (None-Few) H 07/04/18 21:16 Urine Bacteria None Seen per hpf (None-Few) 07/04/18 21:16 Hyaline Casts None Seen per lpf (None-Few) 07/04/18 21:16 Ur Culture Indicated? NO (NO) 07/04/18 21:16 Salicylates < 2.5 mg/dL (15.0-30.0) L 07/04/18 22:11 Urine Opiates Screen Negative ng/mL (Spocwx=898) 07/04/18 21:16 Acetaminophen < 10 mcg/mL (10-20) L 07/04/18 22:11 Ur Barbiturates Screen Positive ng/mL (Lnnsyo=227) H 07/04/18 21:16 Ur Phencyclidine Scrn Negative ng/mL (Cutoff=25) 07/04/18 21:16 Ur Amphetamines Screen Negative ng/mL (Lycfbk=7782) 07/04/18 21:16 Phenobarbital 7 mcg/mL (15-40) L 07/04/18 22:11 U Benzodiazepines Scrn Negative ng/mL (Xesfvl=648) 07/04/18 21:16 Urine Cocaine Screen Negative ng/mL (Cutoff= 300) 07/04/18 21:16 U Marijuana (THC) Screen Negative ng/mL (Cutoff = 50) 07/04/18 21:16 Ur Drug Screen Interp See Below 07/04/18 21:16 Ethyl Alcohol < 10 mg/dL (Less than 10) 07/04/18 22:11 Blood Type B POSITIVE 07/05/18 00:20 Antibody Screen POSITIVE 07/05/18 00:20 Antibody Identification Cancelled 07/05/18 00:20 Antibody ID Referred Warm Auto Antibody 07/05/18 00:20 Crossmatch See Detail 07/05/18 00:20 - Impressions Impressions Head CT 07/05/18 04:05 IMPRESSION: No acute intracranial abnormality. Atrophy and encephalomalacia. Stable examination. D/ / Esteban Khan MD / Esteban Khan MD Interpreting Provider: Esteban Khan MD Consult Discharge Plan - Plan Referrals: NONE,PCP [Primary Care Provider] -
[2018-07-05] MEDS: levETIRAcetam 1,000 MG in 0.9 % Sodium Chloride 100 ML IVPB SCH (21:17)
[2018-07-05 23:01] LABS: Hematocrit 26.2 % (37.5-50.1); Hemoglobin 8.5 g/dL (12.9-16.9)
[2018-07-05] MEDS: Melatonin 3 MG TABLET PO PRN (23:18)
[2018-07-06] MEDS: *HR* LORazepam 2 MG/ML VIAL IVP PRN ×2 (02:45→05:39)
[2018-07-06] MEDS: *HR* OxyCODONE Immed Rel 5 MG TABLET PO PRN ×3 (07:21→21:13)
[2018-07-06] MEDS: PHENOBARBITAL IVPB SCH (08:55)
[2018-07-06] MEDS: SODIUM CHLORIDE 0.9% IVPB SCH (08:55)
[2018-07-06] MEDS: levETIRAcetam 1,000 MG in 0.9 % Sodium Chloride 100 ML IVPB SCH (08:55)
--- NOTE | 2018-07-06 10:23 | Internal Med Progress Note ---
Hospitalist Progress Note - Encounter Date of Encounter: 07/06/18 Time of Encounter: 10:00 - Subjective Interval History: Reportedly had 2 witnessed seizure episodes overnight - Exam Vitals: Temp Pulse Resp BP Pulse Ox 99.3 F 86 13 123/85 100 07/05/18 23:00 07/06/18 09:00 07/06/18 09:00 07/06/18 09:00 07/06/18 09:00 Exam: Gen - Awake, alert, oriented x 3, no acute distress HEENT - NCAT, PERRLA, EOMI, hearing grossly intact, oropharynx benign CV - RRR, normal S1 and S2, no M/R/G, no BLE edema Resp - Normal WOB, CTAB, no W/R/R GI - Soft, NT/ND, no masses, normal bowel sounds, Skin - Warm, dry, no rashes/lesions/ulcers Psych - Normal mood and affect, no depression or anxiety - Assessment and Plan (1) Seizure Current Visit: Yes Status: Chronic Assessment and Plan: Has had reported multiple seizure episodes on this admission that resolved with ativan. Was transferred to the ICU for an ativan drip, but neuro recommended resuming his home seizures meds with IV loading doses. He is currently on po keppra, vimpat and phenobarbital, as patient is awake. He will be transferred out of the ICU to a step down unit. Neurology following and appreciate recs (2) Suicidal ideation Current Visit: Yes Status: Acute Assessment and Plan: Suicide precautions and 24 hour sitter. Psychiatry following (3) Anemia Current Visit: Yes Status: Chronic Assessment and Plan: Hemoglobin stable this am at 10.3. continue to monitor (4) Compression fracture of lumbar vertebra Current Visit: Yes Status: Acute Assessment and Plan: New L5 and T5 compression fracture. Pain control and orthopedic consult once stable from seizure standpoint. (5) Compression fracture of thoracic vertebra Current Visit: Yes Status: Acute Assessment and Plan: Pain control and orthopedics consult as above. (6) Antiphospholipid antibody syndrome Current Visit: No Status: Chronic Assessment and Plan: Hold warfarin till seen by spine surgery (7) DVT prophylaxis Current Visit: Yes Status: Acute Assessment and Plan: EPCD's. - Time Spent with Patient Total time spent is greater than 50% in coordination of care (as documented) at patient's floor/unit and/or counseling patient: Internal Medicine: Result - Labs CBC & Chem 7: 07/06/18 10:41 07/06/18 10:41 Labs: Short CBC 07/05/18 Range/Units 22:50 Hgb 8.5 L (12.9-16.9) g/dL Hct 26.2 L (37.5-50.1) % - ABG Interpretation ABG results: PT/INR, D-dimer PT 16.6 Seconds (9.4-12.1) H 07/05/18 04:52 - VTE Documentation of Mechanical Device: Intermittent pneumatic compression device Consult Discharge Plan - Plan Referrals: NONE,PCP [Non-Partnered Physician] - (3) Anemia Qualifiers: Anemia type: unspecified type Qualified Code(s): D64.9 - Anemia, unspecified (4) Compression fracture of lumbar vertebra Qualifiers: Encounter type: initial encounter Lumbar vertebra fracture level: L5 Fracture type: closed Qualified Code(s): S32.050A - Wedge compression fracture of fifth lumbar vertebra, initial encounter for closed fracture (5) Compression fracture of thoracic vertebra Qualifiers: Encounter type: initial encounter Fracture type: closed Qualified Code(s): S22.000A - Wedge compression fracture of unspecified thoracic vertebra, initial encounter for closed fracture
[2018-07-06 11:25] LABS: Basophils % 0.3 %; Eosinophils % 0.9 %; Hematocrit 30.4 % (37.5-50.1); Immature Granulocytes % 0.3 % (0-4); Lymphocytes # 0.4 K/mcL (0.6-4.6); Lymphocytes % 11.4 %; Mean Corpuscular HGB Conc 33.9 g/dL (31.6-35.5); Mean Corpuscular Hemoglobin 30.7 pg (28.0-33.3); Mean Corpuscular Volume 90.5 fL (83.0-100.0); Mean Platelet Volume 11.1 fL (9.4-12.4); Monocytes # 0.5 K/mcL (0.0-1.3); Neutrophils # 2.5 K/mcL (1.6-8.9); Platelet Count 102 K/mcL (140-400); Red Blood Count 3.36 M/mcL (4.19-5.50); Red Cell Distribution Width 16.9 % (11.5-14.5); Segmented Neutrophils % 73.1 %
[2018-07-06 11:26] LABS: Hemoglobin 10.3 g/dL (12.9-16.9)
[2018-07-06 11:58] LABS: BUN/Creatinine Ratio 9 (6-26); Blood Urea Nitrogen 10 mg/dL (6-20); Calcium 8.8 mg/dL (8.6-10.3); Carbon Dioxide 25 mEq/L (23-29); Chloride 103 mEq/L (98-107); Glucose 103 mg/dL (70-105); Osmolality,Calculated 279 (280-300); Potassium 4.1 mEq/L (3.5-5.1); Sodium 135 mEq/L (136-145); eGFR For Non-African Americans > 60 (> 60)
--- NOTE | 2018-07-06 15:29 | Consult Note ---
Date of Encounter: 07/06/18 Time of Encounter: 14:15 Assessment & Recommendation (1) Major depressive disorder Current visit: Yes Status: Acute Qualifiers: Major depression recurrence: recurrent Major depression episode severity: severe Psychotic features: without psychotic features Qualified Code(s): F33.2 - Major depressive disorder, recurrent severe without psychotic features (2) Suicidal ideation Current visit: Yes Status: Acute Assessment & Recommendation: at present not suicidal . History of Present Illness Patient: new to practice Requesting Physician: Stiven Langley MD Reason for consult: follow up History of present illness: Mr. Arguello is a 38 year old male was seen for follow up. more alert and able to talk more , he states he is depress but not suicidal , was tearful at times as does not know what will happen with his health , he states he is not going to hurt self, he wants t go to heaven , i want to live and wants to get better. he denies any psychosis . REC: will contiue his zoloft 50 mg dc 1:1 as denies suicidal ideation , at present not in immenent danger to self/ others. CC: Stiven Langley MD Past Med Surg Social Fam HX - Past Medical History Medical history: CVA, hyperlipidemia, hypertension, migraine, renal disease, seizures - Past Surgical History Surgical History: tracheostomy - Social History Smoking Status: Current every day smoker Smokeless Tobacco Status: No Alcohol use: none Drug use: none - Family History Mother History Unknown: Yes Father History Unknown: Yes Medications & Allergies levETIRAcetam [Levetiracetam] 1,000 mg PO BID #30 tablet 01/14/17 [Rx] Atorvastatin Calcium [Lipitor] 20 mg PO HS 09/13/17 [History] Baclofen [Lioresal] 10 mg PO BID 09/13/17 [History] Fluconazole [Diflucan] 400 mg PO DAILY 09/13/17 [History] Lacosamide [Vimpat] 200 mg PO Q12H 09/13/17 [History] Multivitamin [One Daily Multivitamin] 1 each PO DAILY 09/13/17 [History] OxyCODONE Immed Rel [Roxicodone 10 MG] 10 mg PO TID 09/13/17 [History] PHENobarbital [Phenobarbital] 64.8 mg PO Q12H 09/13/17 [History] Quetiapine Fumarate [Seroquel] 50 mg PO TID 09/13/17 [History] Sertraline [Zoloft] 50 mg PO DAILY 09/13/17 [History] Warfarin [Coumadin] 6 mg PO DAILY 09/13/17 [History] 3 Allergy/AdvReac Type Severity Reaction Status Date / Time amitriptyline [From Elavil] Allergy Seizure Verified 07/04/18 20:47 Review of Systems Psychiatric: Reports: depression, suicidal ideation, difficulty concentrating Psychiatry Exam - Constitutional Vitals: Temp Pulse Resp BP Pulse Ox 98.7 F 76 16 119/84 95 07/06/18 12:20 07/06/18 12:00 07/06/18 12:00 07/06/18 12:00 07/06/18 12:00 General appearance: average - Psychiatric Patient Orientation: Yes Person, Yes Time Level of alertness: Alert Behavior: cooperative, tearful Eye Contact: Maintains Eye Contact Mood Description: Depressed, Anxious Affect description: constricted Speech pattern: slowed Language & Vocabulary: limited Thought Process: Slowed Thinking Thought Content: Yes Intact Fund of knowledge: Yes average Judgment: Fair Insight: Partial Results - Drug Levels and Toxicology Drug Levels and Toxicology: Drug Levels and Toxicity 07/06/18 04:00 Phenobarbital 8 L - Labs Labs: Laboratory Last Values WBC 3.4 K/mcL (4.3-11.1) L 07/06/18 10:41 RBC 3.36 M/mcL (4.19-5.50) L 07/06/18 10:41 Hgb 10.3 g/dL (12.9-16.9) L D 07/06/18 10:41 Hct 30.4 % (37.5-50.1) L 07/06/18 10:41 MCV 90.5 fL (83.0-100.0) 07/06/18 10:41 MCH 30.7 pg (28.0-33.3) 07/06/18 10:41 MCHC 33.9 g/dL (31.6-35.5) 07/06/18 10:41 RDW 16.9 % (11.5-14.5) H 07/06/18 10:41 Plt Count 102 K/mcL (140-400) L 07/06/18 10:41 MPV 11.1 fL (9.4-12.4) 07/06/18 10:41 Immature Gran % 0.3 % (0-4) 07/06/18 10:41 Seg Neutrophils % 73.1 % 07/06/18 10:41 Lymphocytes % 11.4 % 07/06/18 10:41 Monocytes % 14.0 % 07/06/18 10:41 Eosinophils % 0.9 % 07/06/18 10:41 Basophils % 0.3 % 07/06/18 10:41 Neutrophils # 2.5 K/mcL (1.6-8.9) 07/06/18 10:41 Lymphocytes # 0.4 K/mcL (0.6-4.6) L 07/06/18 10:41 Monocytes # 0.5 K/mcL (0.0-1.3) 07/06/18 10:41 Eosinophils # 0.0 K/mcL (0.0-0.6) 07/06/18 10:41 Basophils # 0.0 K/mcL (0.0-0.2) 07/06/18 10:41 Platelet Estimate Decreased (Normal) L 07/04/18 22:11 Immature Plt Fraction 9.2 % (1.1-6.1) H 07/05/18 04:52 Hypochromasia Present (Not Present) A 07/04/18 22:11 Anisocytosis 1+ (Not Present) A 07/04/18 22:11 PT 16.6 Seconds (9.4-12.1) H 07/05/18 04:52 INR 1.5 07/05/18 04:52 APTT 91.5 Seconds (26.0-36.0) H 07/05/18 04:52 Sodium 135 mEq/L (136-145) L 07/06/18 10:41 Potassium 4.1 mEq/L (3.5-5.1) 07/06/18 10:41 Chloride 103 mEq/L (98-107) 07/06/18 10:41 Carbon Dioxide 25 mEq/L (23-29) 07/06/18 10:41 BUN 10 mg/dL (6-20) 07/06/18 10:41 Creatinine 1.15 mg/dL (0.70-1.30) 07/06/18 10:41 Est GFR ( Amer) > 60 (> 60) 07/06/18 10:41 Est GFR (Non-Af Amer) > 60 (> 60) 07/06/18 10:41 BUN/Creatinine Ratio 9 (6-26) 07/06/18 10:41 Glucose 103 mg/dL (70-105) 07/06/18 10:41 POC Glucose 104 mg/dL (70-99) H 07/05/18 12:48 Calculated Osmolality 279 (280-300) L 07/06/18 10:41 Lactic Acid 0.9 mmol/L (0.5-2.2) 07/04/18 22:11 Calcium 8.8 mg/dL (8.6-10.3) 07/06/18 10:41 Magnesium 1.7 mg/dL (1.6-2.6) 07/05/18 04:52 Total Bilirubin 0.4 mg/dL (0.3-1.0) 07/05/18 04:52 AST 13 Units/L (13-39) 07/05/18 04:52 ALT 9 Units/L (7-52) 07/05/18 04:52 Alkaline Phosphatase 119 Units/L (34-104) H 07/05/18 04:52 Serum Total Protein 6.4 g/dL (6.4-8.9) 07/05/18 04:52 Albumin 3.5 g/dL (3.5-5.7) 07/05/18 04:52 Globulin 2.9 g/dL (2.4-3.5) 07/05/18 04:52 Albumin/Globulin Ratio 1.2 (1.1-2.2) 07/05/18 04:52 Urine Color Yellow (Yellow) 07/04/18 21:16 Urine Clarity Clear (Clear) 07/04/18 21:16 Urine pH 7.0 pH Units (5.0-8.0) 07/04/18 21:16 Ur Specific [place] 1.005 (1.010-1.025) L 07/04/18 21:16 Urine Protein >=300 mg/dL (Neg-Trace) H 07/04/18 21:16 Urine Glucose (UA) Normal mg/dL (Normal) 07/04/18 21:16 Urine Ketones Negative mg/dL (Negative) 07/04/18 21:16 Urine Blood Trace (Negative) H 07/04/18 21:16 Urine Nitrite Negative (Negative) 07/04/18 21:16 Urine Bilirubin Negative (Negative) 07/04/18 21:16 Urine Urobilinogen Normal mg/dL (Normal) 07/04/18 21:16 Ur Leukocyte Esterase Negative (Negative) 07/04/18 21:16 Urine Microscopic RBC 0-3 per hpf (0-3) 07/04/18 21:16 Urine Microscopic WBC 0-3 per hpf (0-3) 07/04/18 21:16 Ur Squamous Epith Cells Many per lpf (None-Few) H 07/04/18 21:16 Urine Bacteria None Seen per hpf (None-Few) 07/04/18 21:16 Hyaline Casts None Seen per lpf (None-Few) 07/04/18 21:16 Ur Culture Indicated? NO (NO) 07/04/18 21:16 Salicylates < 2.5 mg/dL (15.0-30.0) L 07/04/18 22:11 Urine Opiates Screen Negative ng/mL (Zjlvgk=220) 07/04/18 21:16 Acetaminophen < 10 mcg/mL (10-20) L 07/04/18 22:11 Ur Barbiturates Screen Positive ng/mL (Tllfsy=280) H 07/04/18 21:16 Ur Phencyclidine Scrn Negative ng/mL (Cutoff=25) 07/04/18 21:16 Ur Amphetamines Screen Negative ng/mL (Qyqvqd=0467) 07/04/18 21:16 Phenobarbital 8 mcg/mL (15-40) L 07/06/18 04:00 U Benzodiazepines Scrn Negative ng/mL (Ultopf=516) 07/04/18 21:16 Urine Cocaine Screen Negative ng/mL (Cutoff= 300) 07/04/18 21:16 U Marijuana (THC) Screen Negative ng/mL (Cutoff = 50) 07/04/18 21:16 Ur Drug Screen Interp See Below 07/04/18 21:16 Ethyl Alcohol < 10 mg/dL (Less than 10) 07/04/18 22:11 Blood Type B POSITIVE 07/05/18 00:20 Antibody Screen POSITIVE 07/05/18 00:20 Antibody Identification Cancelled 07/05/18 00:20 Antibody ID Referred Warm Auto Antibody 07/05/18 00:20 Crossmatch See Detail 07/05/18 00:20 Consult Discharge Plan - Plan Referrals: NONE,PCP [Non-Partnered Physician] -
--- NOTE | 2018-07-06 16:18 | Neurology Progress Note ---
Date of Encounter: 07/06/18 Time of Encounter: 12:00 Assessment and Plan (1) Seizure Current Visit: Yes Status: Chronic Patient continues to have recurrent episodes of seizure like activity, while in the ICU, with onboard of phenobarbital, vimpat and keppra IV and some of the episodes are not stereotypical and all of them are not associated with tongue biting or urinary incontinence. In between the episodes his mental status can be intact aside from some hypersomnolence. Not fully convinced that he has epileptic events but it would be difficult to confirm these being epileptic or non-epileptic without [employer] EEG monitoring. Recommendation would be to keep him on current antiepileptic therapy without change and continue medical and supportive care since he does have significant anemia and psychiatric issue. However, if seizures recur and then i would consider transfer to tertiary medical facility where [employer] EEG monitoring can be performed. Agree with step down transfer and keep on current antiepileptic therapy. He can be switched to oral form of keppra 1000mg bid, vimpat 200mg bid and Phenobarbital 64.8mg bid. Please continue medical and supportive care Subjective Principal diagnosis: Seizure activity Interval history: Patient seen and examined at noon time and the patient is wide awake and in sitting position ready to eat lunch. Earlier this morning he was sleepy but easily arousable and able to converse well. He is oriented x3 and in no distress. He does not remember he has had seizurex2. Unfortunately, no detailed information regarding the episodes other than one flailing movement lasting 3 minutes and the other one a stare seizure lasting 45 seconds? but again no tongue biting and no urinary incontinence reported. When asked about how is he feeling, he says 'lots of pain'. Patient is going to step down unit and he is hemodynamically stable. Objective - Constitutional Vitals: Temp Pulse Resp BP Pulse Ox 98.7 F 76 16 119/84 95 07/06/18 12:20 07/06/18 12:00 07/06/18 12:00 07/06/18 12:07/06/18 12:00 - Neurological Exam Sensorimotor examination: Present: intact (Grossly intact) Motor Examination: Present: grossly full strength in all extremities Motor examination - right side: 5/5: deltoids, biceps, triceps, wrist flexion, wrist extension, country printer, hip flexors, tibialis Anterior, quadriceps, toe extension (EHL), plantarflexion Motor examination - left side: 5/5: deltoids, biceps, triceps, wrist flexion, wrist extension, hip flexors, country printer, quadriceps, tibialis Anterior, toe extension (EHL), plantarflexion Sensation intact: Present: intact (Grossly intact) Posture: Present: other (None) Reflexes: Biceps: 2+, Triceps: 2+, Brachioradialis: 2+, Patella: 2+, Achilles: 2 + Mental Status Examination: Present: awake, alert, oriented to person, oriented to place, oriented to time, answers questions appropriately, no agnosia, no aphasia, no aproxia Cranial nerve examination: Present: PERRL, EOMI, visual wallace intact, corneal reflexes brisk symmetrically, sensory to face intact, mastication intact, no facial asymmetry is present, no dysarthria, hearing is intact symmetrically, soft palate elevates bilaterally upon phonation, gag reflex intact, flexes SCM and trapezius muscles symmetrically with full power, tongue protrudes midline, no atrophy or facial fasiculations present - VTE Documentation of Mechanical Device: Intermittent pneumatic compression device Results - Laboratory Findings CBC and BMP: 07/06/18 10:41 07/06/18 10:41 Abnormal lab findings: Abnormal lab results WBC 3.4 K/mcL (4.3-11.1) L 07/06/18 10:41 RBC 3.36 M/mcL (4.19-5.50) L 07/06/18 10:41 Hgb 10.3 g/dL (12.9-16.9) L D 07/06/18 10:41 Hct 30.4 % (37.5-50.1) L 07/06/18 10:41 RDW 16.9 % (11.5-14.5) H 07/06/18 10:41 Plt Count 102 K/mcL (140-400) L 07/06/18 10:41 Lymphocytes # 0.4 K/mcL (0.6-4.6) L 07/06/18 10:41 Platelet Estimate Decreased (Normal) L 07/04/18 22:11 Immature Plt Fraction 9.2 % (1.1-6.1) H 07/05/18 04:52 Hypochromasia Present (Not Present) A 07/04/18 22:11 Anisocytosis 1+ (Not Present) A 07/04/18 22:11 PT 16.6 Seconds (9.4-12.1) H 07/05/18 04:52 APTT 91.5 Seconds (26.0-36.0) H 07/05/18 04:52 Sodium 135 mEq/L (136-145) L 07/06/18 10:41 POC Glucose 104 mg/dL (70-99) H 07/05/18 12:48 Calculated Osmolality 279 (280-300) L 07/06/18 10:41 Alkaline Phosphatase 119 Units/L (34-104) H 07/05/18 04:52 Ur Specific [place] 1.005 (1.010-1.025) L 07/04/18 21:16 Urine Protein >=300 mg/dL (Neg-Trace) H 07/04/18 21:16 Urine Blood Trace (Negative) H 07/04/18 21:16 Ur Squamous Epith Cells Many per lpf (None-Few) H 07/04/18 21:16 Salicylates < 2.5 mg/dL (15.0-30.0) L 07/04/18 22:11 Acetaminophen < 10 mcg/mL (10-20) L 07/04/18 22:11 Ur Barbiturates Screen Positive ng/mL (Lqhxtf=405) H 07/04/18 21:16 Phenobarbital 8 mcg/mL (15-40) L 07/06/18 04:00 Consult Discharge Plan - Plan Referrals: NONE,PCP [Non-Partnered Physician] -
--- NOTE | 2018-07-06 17:48 | Pain Management Progress Note ---
Date of Encounter: 07/07/18 Time of Encounter: 17:47 - Assessment and Plan (1) Compression fracture of lumbar vertebra Current Visit: Yes Status: Acute Reviewed CT scan. Will request TLSO brace. May need placement and follow up. Likely traumatic and not clearly an indication for kyphoplasty. Recommend conservative care and placement for PT and stabilization of underlying organic brain disease. Qualifiers: Encounter type: initial encounter Lumbar vertebra fracture level: L5 Fracture type: closed Qualified Code(s): S32.050A - Wedge compression fracture of fifth lumbar vertebra, initial encounter for closed fracture (2) Compression fracture of thoracic vertebra Current Visit: Yes Status: Acute Qualifiers: Encounter type: initial encounter Fracture type: closed Qualified Code(s) : S22.000A - Wedge compression fracture of unspecified thoracic vertebra, initial encounter for closed fracture Subjective Narrative: Patient with known epilepsy and recent medication issues resulting in several seizures over the last 24-48 hours. Back pain is new. Admitted and found to have new L5 fracture. Patient has been exhibiting back pain. He states that he is afraid that I am going to "(bleep) him up." He offered make congratulations and asked me if I completed my training. He asked me how long it will take me "to take it out." He has had back pain for a long time he says. He does not recall having seizures. He apparently has missed taking his medication. He is exhibiting no new symptoms. States these not eating well because he "cannot take a sh%&." Patient appears to be talking on the phone but there does not appear to be any other person on the phone with him on the other end of the line. Objective Vital Signs - Last 8 Hours Temp 07/06/18 16:00 98.7 F - General physical appearance well developed, moderate pain - Eyes pinpoint pupil - Respiratory normal expansion, clear to auscultation - Cardiovascular Cardiovascular exam: Present: RRR - Abdomen Abdomen: Present: soft - Musculoskeletal normal posture, other (TTP over the lumbar spine. Exam limited to patient cooperation. ) - Psychiatric other (delusions present. No hallucination. Expansive. ) - Labs 07/06/18 10:41 07/06/18 10:41 - Imaging Additional Studies: Reviewed results of the CT thoracic and lumbar spines. T6 and L5 fractures are newer. No evidence of canal compromise - VTE Documentation of Mechanical Device: Intermittent pneumatic compression device Consult Discharge Plan - Plan Referrals: NONE,PCP [Non-Partnered Physician] -
[2018-07-06] MEDS ORDERED: Warfarin perPT PO SCH (18:00)
[2018-07-06] MEDS: PHENobarbital 32.4 MG TABLET PO SCH (21:14)
[2018-07-06] MEDS: levETIRAcetam 250 MG TABLET PO SCH (21:15)
[2018-07-06] MEDS: Melatonin 3 MG TABLET PO PRN (21:15)
[2018-07-07] MEDS ORDERED: traZODone 50 MG TABLET PO ONE (01:54)
[2018-07-07] MEDS: levETIRAcetam 250 MG TABLET PO SCH ×2 (08:21→19:56)
[2018-07-07] MEDS: *HR* OxyCODONE Immed Rel 5 MG TABLET PO PRN ×3 (08:21→21:45)
[2018-07-07] MEDS: PHENobarbital 32.4 MG TABLET PO SCH ×2 (08:22→19:56)
--- NOTE | 2018-07-07 09:08 | Internal Med Progress Note ---
Hospitalist Progress Note - Encounter Date of Encounter: 07/07/18 Time of Encounter: 09:00 - Subjective Interval History: Reportedly had 2 witnessed seizure episodes overnight - Exam Vitals: Temp Pulse Resp BP Pulse Ox 98.8 F 106 16 157/111 99 07/07/18 08:17 07/07/18 08:17 07/07/18 08:17 07/07/18 08:17 07/07/18 08:17 Exam: Gen - Awake, alert, oriented x 3, no acute distress HEENT - NCAT, PERRLA, EOMI, hearing grossly intact, oropharynx benign CV - RRR, normal S1 and S2, no M/R/G, no BLE edema Resp - Normal WOB, CTAB, no W/R/R GI - Soft, NT/ND, no masses, normal bowel sounds, Skin - Warm, dry, no rashes/lesions/ulcers Psych - Normal mood and affect, no depression or anxiety - Assessment and Plan (1) Seizure Current Visit: Yes Status: Chronic Assessment and Plan: Has had reported multiple seizure episodes on this admission that resolved with ativan. Was transferred to the ICU for an ativan drip, but neuro recommended resuming his home seizures meds with IV loading doses. He is currently on po keppra, vimpat and phenobarbital, as patient is awake. 07/07-Transferred out of the ICU to a step down unit. No further reported seizure episodes in last 24hrs. Continue po antiepileptics. Patient is medically clear to proceed to inpatient psych (2) Suicidal ideation Current Visit: Yes Status: Acute Assessment and Plan: Suicide precautions and 24 hour sitter. Psychiatry following Patient can be transferred to inpatient psych (3) Anemia Current Visit: Yes Status: Chronic Assessment and Plan: Hemoglobin stable this am at 10.3. continue to monitor (4) Compression fracture of lumbar vertebra Current Visit: Yes Status: Acute Assessment and Plan: New L5 and T5 compression fracture. Likely traumatic Seen by pain. No acute surgical intervention. Recommend TLSO brace (5) Compression fracture of thoracic vertebra Current Visit: Yes Status: Acute Assessment and Plan: Pain control and orthopedics consult as above. (6) Antiphospholipid antibody syndrome Current Visit: No Status: Chronic Assessment and Plan: Will resume warfarin (7) DVT prophylaxis Current Visit: Yes Status: Acute Assessment and Plan: EPCD's. (8) Protein-calorie malnutrition, moderate Current Visit: Yes Status: Acute Assessment and Plan: Dietary following. Dietary supplementation - Time Spent with Patient Total time spent is greater than 50% in coordination of care (as documented) at patient's floor/unit and/or counseling patient: Internal Medicine: Result - Labs CBC & Chem 7: 07/06/18 10:41 07/06/18 10:41 - ABG Interpretation ABG results: PT/INR, D-dimer PT 16.6 Seconds (9.4-12.1) H 07/05/18 04:52 - VTE Documentation of Mechanical Device: Intermittent pneumatic compression device Consult Discharge Plan - Plan Referrals: NONE,PCP [Non-Partnered Physician] - (3) Anemia Qualifiers: Anemia type: unspecified type Qualified Code(s): D64.9 - Anemia, unspecified (4) Compression fracture of lumbar vertebra Qualifiers: Encounter type: initial encounter Lumbar vertebra fracture level: L5 Fracture type: closed Qualified Code(s): S32.050A - Wedge compression fracture of fifth lumbar vertebra, initial encounter for closed fracture (5) Compression fracture of thoracic vertebra Qualifiers: Encounter type: initial encounter Fracture type: closed Qualified Code(s): S22.000A - Wedge compression fracture of unspecified thoracic vertebra, initial encounter for closed fracture
--- NOTE | 2018-07-07 09:25 | Discharge Summary ---
Date of Encounter: 07/07/18 Time of Encounter: 09:30 - Discharge Diagnosis (1) Seizure Priority: Primary Status: Chronic Assessment and Plan: 38 year old male who was admitted to hospitalist service with complaints of generalized pain, new compression fracture in his thoracic spine, and anemia. Additionally, he reported to ER staff that he was suicidal and, as such, he was admitted for suicidal ideations and pink slipped and had a sitter with him. He had reported multiple seizure episodes on this admission that resolved with ativan. He was transferred to the ICU for an ativan drip, but neuro recommended resuming his home seizures meds with IV loading doses. He was safely restarted on his meds of po keppra, vimpat and phenobarbital annd tolerated them well with no seizure activity He was transferred out of the ICU to a step down unit with no further reported seizure episodes. He was noted to have new compression fracture in his T5 and L5 vertebrae and was seen by spine who recommended no surgical intervention and prescribed a TLSO brace. He is medically clear to proceed to inpatient psych for further management of his suicidal ideation. 35 minutes was spent discharging this patient (2) Suicidal ideation Priority: Primary Status: Acute Assessment and Plan: Suicide precautions and 24 hour sitter. Psychiatry following Patient can be transferred to inpatient psych (3) Anemia Priority: Secondary Status: Chronic Qualifiers: Anemia type: unspecified type Qualified Code(s): D64.9 - Anemia, unspecified (4) Compression fracture of lumbar vertebra Priority: Secondary Status: Acute Qualifiers: Encounter type: initial encounter Lumbar vertebra fracture level: L5 Fracture type: closed Qualified Code(s): S32.050A - Wedge compression fracture of fifth lumbar vertebra, initial encounter for closed fracture (5) Compression fracture of thoracic vertebra Priority: Primary Status: Acute Qualifiers: Encounter type: initial encounter Fracture type: closed Qualified Code(s) : S22.000A - Wedge compression fracture of unspecified thoracic vertebra, initial encounter for closed fracture (6) Antiphospholipid antibody syndrome Priority: Secondary Status: Chronic (7) DVT prophylaxis Priority: Secondary Status: Acute Hospital course: Mr. Arguello is a 38 year old male - Time Spent with Patient Total time spent providing and/or coordinating discharge services: - Discharge Medications Home Medications: levETIRAcetam [Levetiracetam] 1,000 mg PO BID #30 tablet 01/14/17 [Rx] Atorvastatin Calcium [Lipitor] 20 mg PO HS 09/13/17 [History] Baclofen [Lioresal] 10 mg PO BID 09/13/17 [History] Fluconazole [Diflucan] 400 mg PO DAILY 09/13/17 [History] Lacosamide [Vimpat] 200 mg PO Q12H 09/13/17 [History] Multivitamin [One Daily Multivitamin] 1 each PO DAILY 09/13/17 [History] OxyCODONE Immed Rel [Roxicodone 10 MG] 10 mg PO TID 09/13/17 [History] PHENobarbital [Phenobarbital] 64.8 mg PO Q12H 09/13/17 [History] Quetiapine Fumarate [Seroquel] 50 mg PO TID 09/13/17 [History] Sertraline [Zoloft] 50 mg PO DAILY 09/13/17 [History] Warfarin [Coumadin] 6 mg PO DAILY 09/13/17 [History] Allergies/Adverse Reactions: 3 Allergy/AdvReac Type Severity Reaction Status Date / Time amitriptyline [From Elavil] Allergy Seizure Verified 07/04/18 20:47 Date of admission: 07/06/18 14:54 Primary care physician: Mat Mitchell MD - Constitutional Vitals: Temp Pulse Resp BP Pulse Ox 98.8 F 106 16 157/111 99 07/07/18 08:17 07/07/18 08:17 07/07/18 08:17 07/07/18 08:17 07/07/18 08:17 General appearance: Present: cachectic Exam: Gen - Awake, alert, oriented x 3, no acute distress HEENT - NCAT, PERRLA, EOMI, hearing grossly intact, oropharynx benign CV - RRR, normal S1 and S2, no M/R/G, no BLE edema Resp - Normal WOB, CTAB, no W/R/R GI - Soft, NT/ND, no masses, normal bowel sounds, Skin - Warm, dry, no rashes/lesions/ulcers Psych - Normal mood and affect, no depression or anxiety - Patient Status Disposition: Transfer Psychiatric Hosp Condition: Good - Discharge Instructions Follow Up With: NONE,PCP [Non-Partnered Physician] - - VTE Documentation of Mechanical Device: Intermittent pneumatic compression device
[2018-07-07 10:55] LABS: INR 1.4; Prothrombin Time 15.9 Seconds (9.4-12.1)
--- NOTE | 2018-07-07 15:11 | Neurology Progress Note ---
Date of Encounter: 07/07/18 Time of Encounter: 15:09 Assessment and Plan (1) Seizure Current Visit: Yes Status: Chronic Will resume home antiepileptic regimen including Keppra 1000mg bid, Phenobarbital 64.8mg bid and Vimpat 200mg bid. patient can be followed up in neurology clinic in the next few weeks. Seizure precautions advised to patient Subjective Principal diagnosis: Seizure activity Interval history: Patient seen and examined and he is doing well although he still complains of having back pain. He has no recurrent seizures since transferred out of ICU. Mental status appear stable and medical conditions are stable and patient is being discharged to home Objective - Constitutional Vitals: Temp Pulse Resp BP Pulse Ox 98.8 F 106 16 157/111 99 07/07/18 08:17 07/07/18 08:17 07/07/18 08:17 07/07/18 08:17 07/07/18 08:17 - Neurological Exam Sensorimotor examination: Present: intact (Grossly intact) Motor Examination: Present: grossly full strength in all extremities Motor examination - right side: 5/5: deltoids, biceps, triceps, wrist flexion, wrist extension, mattress maker, hip flexors, tibialis Anterior, quadriceps, toe extension (EHL), plantarflexion Motor examination - left side: 5/5: deltoids, biceps, triceps, wrist flexion, wrist extension, hip flexors, mattress maker, quadriceps, tibialis Anterior, toe extension (EHL), plantarflexion Sensation intact: Present: intact (Grossly intact) Posture: Present: other (None) Reflex and gait examination: intact Reflexes: Biceps: 2+, Triceps: 2+, Brachioradialis: 2+, Patella: 2+, Achilles: 2 + Mental Status Examination: Present: awake, alert, oriented to person, oriented to place, oriented to time, answers questions appropriately, no agnosia, no aphasia, no aproxia Cranial nerve examination: Present: PERRL, EOMI, visual wallace intact, corneal reflexes brisk symmetrically, sensory to face intact, mastication intact, no facial asymmetry is present, no dysarthria, hearing is intact symmetrically, soft palate elevates bilaterally upon phonation, gag reflex intact, flexes SCM and trapezius muscles symmetrically with full power, tongue protrudes midline, no atrophy or facial fasiculations present - VTE Documentation of Mechanical Device: Intermittent pneumatic compression device Results - Laboratory Findings CBC and BMP: 07/06/18 10:41 07/06/18 10:41 Abnormal lab findings: Abnormal lab results WBC 3.4 K/mcL (4.3-11.1) L 07/06/18 10:41 RBC 3.36 M/mcL (4.19-5.50) L 07/06/18 10:41 Hgb 10.3 g/dL (12.9-16.9) L D 07/06/18 10:41 Hct 30.4 % (37.5-50.1) L 07/06/18 10:41 RDW 16.9 % (11.5-14.5) H 07/06/18 10:41 Plt Count 102 K/mcL (140-400) L 07/06/18 10:41 Lymphocytes # 0.4 K/mcL (0.6-4.6) L 07/06/18 10:41 Platelet Estimate Decreased (Normal) L 07/04/18 22:11 Immature Plt Fraction 9.2 % (1.1-6.1) H 07/05/18 04:52 Hypochromasia Present (Not Present) A 07/04/18 22:11 Anisocytosis 1+ (Not Present) A 07/04/18 22:11 PT 15.9 Seconds (9.4-12.1) H 07/07/18 10:38 APTT 91.5 Seconds (26.0-36.0) H 07/05/18 04:52 Sodium 135 mEq/L (136-145) L 07/06/18 10:41 POC Glucose 110 mg/dL (70-99) H 07/06/18 12:18 Calculated Osmolality 279 (280-300) L 07/06/18 10:41 Alkaline Phosphatase 119 Units/L (34-104) H 07/05/18 04:52 Ur Specific [place] 1.005 (1.010-1.025) L 07/04/18 21:16 Urine Protein >=300 mg/dL (Neg-Trace) H 07/04/18 21:16 Urine Blood Trace (Negative) H 07/04/18 21:16 Ur Squamous Epith Cells Many per lpf (None-Few) H 07/04/18 21:16 Salicylates < 2.5 mg/dL (15.0-30.0) L 07/04/18 22:11 Acetaminophen < 10 mcg/mL (10-20) L 07/04/18 22:11 Ur Barbiturates Screen Positive ng/mL (Uijkry=564) H 07/04/18 21:16 Phenobarbital 8 mcg/mL (15-40) L 07/06/18 04:00 Consult Discharge Plan - Plan Referrals: NONE,PCP [Non-Partnered Physician] -
[2018-07-07] MEDS ORDERED: *HR* Warfarin 7.5 MG TABLET PO ONE (18:00)
[2018-07-07] MEDS: Warfarin perPT PO SCH (19:47)
[2018-07-07] MEDS: Melatonin 3 MG TABLET PO PRN (19:56)
[2018-07-08 03:40] LABS: INR 1.6; Prothrombin Time 18.1 Seconds (9.4-12.1)
[2018-07-08] MEDS: *HR* OxyCODONE Immed Rel 5 MG TABLET PO PRN ×3 (04:13→20:16)
[2018-07-08] MEDS ORDERED: amLODIPine 5 MG TABLET PO SCH (08:19)
--- NOTE | 2018-07-08 08:21 | Internal Med Progress Note ---
Hospitalist Progress Note - Encounter Date of Encounter: 07/08/18 Time of Encounter: 08:20 - Subjective Interval History: Reportedly had 2 witnessed seizure episodes overnight - Exam Vitals: Temp Pulse Resp BP Pulse Ox 98.3 F 104 16 147/100 98 07/08/18 06:59 07/08/18 06:59 07/08/18 06:59 07/08/18 06:59 07/08/18 06:59 Exam: Gen - Awake, alert, oriented x 3, no acute distress HEENT - NCAT, PERRLA, EOMI, hearing grossly intact, oropharynx benign CV - RRR, normal S1 and S2, no M/R/G, no BLE edema Resp - Normal WOB, CTAB, no W/R/R GI - Soft, NT/ND, no masses, normal bowel sounds, Skin - Warm, dry, no rashes/lesions/ulcers Psych - Normal mood and affect, no depression or anxiety - Assessment and Plan (1) Seizure Current Visit: Yes Status: Chronic Assessment and Plan: 38 year old male who was admitted to hospitalist service with complaints of generalized pain, new compression fracture in his thoracic spine, and anemia. Additionally, he reported to ER staff that he was suicidal and, as such, he was admitted for suicidal ideations and pink slipped and had a sitter with him. He had reported multiple seizure episodes on this admission that resolved with ativan. He was transferred to the ICU for an ativan drip, but neuro recommended resuming his home seizures meds with IV loading doses. He was safely restarted on his meds of po keppra, vimpat and phenobarbital annd tolerated them well with no seizure activity He was transferred out of the ICU to a step down unit with no further reported seizure episodes. He was noted to have new compression fracture in his T5 and L5 vertebrae and was seen by spine who recommended no surgical intervention and prescribed a TLSO brace. He is medically clear to proceed to inpatient psych for further management of his suicidal ideation. 07/08. Psychiatry noted patient is not actively suicidal and does not warrant a transfer to inpatient psych. Will obtain PT consult and interlibrary loan services librarian consult for discharge planning in light of compression fractures (2) Suicidal ideation Current Visit: Yes Status: Acute Assessment and Plan: Suicide precautions and 24 hour sitter. Psychiatry following Patient can be transferred to inpatient psych (3) Anemia Current Visit: Yes Status: Chronic Assessment and Plan: Possibly secondary to chronic blood loss. Does note endorse any blood in his stools. Hemoglobin stable this am at 10.3. continue to monitor (4) Compression fracture of lumbar vertebra Current Visit: Yes Status: Acute Assessment and Plan: New L5 and T5 compression fracture. Likely traumatic Seen by pain. No acute surgical intervention. Recommend TLSO brace (5) Compression fracture of thoracic vertebra Current Visit: Yes Status: Acute Assessment and Plan: Pain control and orthopedics consult as above. (6) Antiphospholipid antibody syndrome Current Visit: No Status: Chronic Assessment and Plan: Will resume warfarin (7) DVT prophylaxis Current Visit: Yes Status: Acute Assessment and Plan: EPCD's. - Time Spent with Patient Total time spent is greater than 50% in coordination of care (as documented) at patient's floor/unit and/or counseling patient: Internal Medicine: Result - Labs CBC & Chem 7: 07/06/18 10:41 07/06/18 10:41 - ABG Interpretation ABG results: PT/INR, D-dimer PT 18.1 Seconds (9.4-12.1) H 07/08/18 03:20 - VTE Documentation of Mechanical Device: Intermittent pneumatic compression device Consult Discharge Plan - Plan Referrals: NONE,PCP [Non-Partnered Physician] - (3) Anemia Qualifiers: Anemia type: unspecified type Qualified Code(s): D64.9 - Anemia, unspecified (4) Compression fracture of lumbar vertebra Qualifiers: Encounter type: initial encounter Lumbar vertebra fracture level: L5 Fracture type: closed Qualified Code(s): S32.050A - Wedge compression fracture of fifth lumbar vertebra, initial encounter for closed fracture (5) Compression fracture of thoracic vertebra Qualifiers: Encounter type: initial encounter Fracture type: closed Qualified Code(s): S22.000A - Wedge compression fracture of unspecified thoracic vertebra, initial encounter for closed fracture
[2018-07-08] MEDS: levETIRAcetam 250 MG TABLET PO SCH ×2 (08:43→20:03)
[2018-07-08] MEDS: PHENobarbital 32.4 MG TABLET PO SCH ×2 (08:43→20:02)
[2018-07-08] MEDS ORDERED: *HR* Warfarin 5 MG TABLET PO ONE (18:00)
[2018-07-08] MEDS: Warfarin perPT PO SCH (19:49)
[2018-07-08] MEDS: Melatonin 3 MG TABLET PO PRN (20:17)
[2018-07-09] MEDS: *HR* OxyCODONE Immed Rel 5 MG TABLET PO PRN (06:24)
[2018-07-09 07:56] LABS: INR 2.7
--- NOTE | 2018-07-09 08:26 | Internal Med Progress Note ---
Hospitalist Progress Note - Encounter Date of Encounter: 07/09/18 Time of Encounter: 08:25 - Subjective Interval History: Reportedly had 2 witnessed seizure episodes overnight - Exam Vitals: Temp Pulse Resp BP Pulse Ox 98.4 F 100 14 126/73 98 07/09/18 05:20 07/09/18 05:20 07/09/18 05:20 07/09/18 05:20 07/09/18 05:20 Exam: Gen - Awake, alert, oriented x 3, no acute distress HEENT - NCAT, PERRLA, EOMI, hearing grossly intact, oropharynx benign CV - RRR, normal S1 and S2, no M/R/G, no BLE edema Resp - Normal WOB, CTAB, no W/R/R GI - Soft, NT/ND, no masses, normal bowel sounds, Skin - Warm, dry, no rashes/lesions/ulcers Psych - Normal mood and affect, no depression or anxiety - Assessment and Plan (1) Seizure Current Visit: Yes Status: Chronic Assessment and Plan: 38 year old male who was admitted to hospitalist service with complaints of generalized pain, new compression fracture in his thoracic spine, and anemia. Additionally, he reported to ER staff that he was suicidal and, as such, he was admitted for suicidal ideations and pink slipped and had a sitter with him. He had reported multiple seizure episodes on this admission that resolved with ativan. He was transferred to the ICU for an ativan drip, but neuro recommended resuming his home seizures meds with IV loading doses. He was safely restarted on his meds of po keppra, vimpat and phenobarbital annd tolerated them well with no seizure activity He was transferred out of the ICU to a step down unit with no further reported seizure episodes. He was noted to have new compression fracture in his T5 and L5 vertebrae and was seen by spine who recommended no surgical intervention and prescribed a TLSO brace. He is medically clear to proceed to inpatient psych for further management of his suicidal ideation. 07/09. Psychiatry noted patient is not actively suicidal and does not warrant a transfer to inpatient psych. Pt recommend discharge to rehab. Follow up with social work for discharge planning (2) Suicidal ideation Current Visit: Yes Status: Acute Assessment and Plan: Suicide precautions and 24 hour sitter. Psychiatry following Patient can be transferred to inpatient psych (3) Anemia Current Visit: Yes Status: Chronic Assessment and Plan: Possibly secondary to chronic blood loss. Does note endorse any blood in his stools. Hemoglobin stable this am at 10.3. continue to monitor (4) Compression fracture of lumbar vertebra Current Visit: Yes Status: Acute Assessment and Plan: New L5 and T5 compression fracture. Likely traumatic Seen by pain. No acute surgical intervention. Recommend TLSO brace (5) Compression fracture of thoracic vertebra Current Visit: Yes Status: Acute Assessment and Plan: Pain control and orthopedics consult as above. (6) Antiphospholipid antibody syndrome Current Visit: No Status: Chronic Assessment and Plan: Will resume warfarin (7) DVT prophylaxis Current Visit: Yes Status: Acute Assessment and Plan: EPCD's. - Time Spent with Patient Total time spent is greater than 50% in coordination of care (as documented) at patient's floor/unit and/or counseling patient: Internal Medicine: Result - Labs CBC & Chem 7: 07/06/18 10:41 07/06/18 10:41 - ABG Interpretation ABG results: PT/INR, D-dimer PT 31.0 Seconds (9.4-12.1) H D 07/09/18 07:08 - VTE Documentation of Mechanical Device: Intermittent pneumatic compression device Consult Discharge Plan - Plan Referrals: Mat Mitchell MD [Primary Care Provider] - (3) Anemia Qualifiers: Anemia type: unspecified type Qualified Code(s): D64.9 - Anemia, unspecified (4) Compression fracture of lumbar vertebra Qualifiers: Encounter type: initial encounter Lumbar vertebra fracture level: L5 Fracture type: closed Qualified Code(s): S32.050A - Wedge compression fracture of fifth lumbar vertebra, initial encounter for closed fracture (5) Compression fracture of thoracic vertebra Qualifiers: Encounter type: initial encounter Fracture type: closed Qualified Code(s): S22.000A - Wedge compression fracture of unspecified thoracic vertebra, initial encounter for closed fracture
[2018-07-09] MEDS: levETIRAcetam 250 MG TABLET PO SCH ×2 (09:50→20:10)
[2018-07-09] MEDS: PHENobarbital 32.4 MG TABLET PO SCH ×2 (09:51→20:11)
[2018-07-09] MEDS ORDERED: traMADol 50 MG TABLET PO PRN (12:17)
[2018-07-09] MEDS ORDERED: *HR* Warfarin 2.5 MG TABLET PO ONE (18:00)
[2018-07-09] MEDS: *HR* OxyCODONE Immed Rel 5 MG TABLET PO SCH (18:44)
[2018-07-09] MEDS: Warfarin perPT PO SCH (18:46)
[2018-07-09] MEDS: Melatonin 3 MG TABLET PO PRN (20:11)
[2018-07-09 22:34] LABS: Basophils % 0.3 %; Eosinophils # 0.1 K/mcL (0.0-0.6); Eosinophils % 3.1 %; Hematocrit 28.9 % (37.5-50.1); Hemoglobin 9.7 g/dL (12.9-16.9); Lymphocytes # 0.7 K/mcL (0.6-4.6); Lymphocytes % 17.6 %; Mean Corpuscular HGB Conc 33.6 g/dL (31.6-35.5); Mean Corpuscular Hemoglobin 29.5 pg (28.0-33.3); Mean Corpuscular Volume 87.8 fL (83.0-100.0); Mean Platelet Volume 11.7 fL (9.4-12.4); Monocytes # 0.7 K/mcL (0.0-1.3); Monocytes % 17.1 %; Neutrophils # 2.4 K/mcL (1.6-8.9); Platelet Count 115 K/mcL (140-400); Red Blood Count 3.29 M/mcL (4.19-5.50); Red Cell Distribution Width 15.8 % (11.5-14.5); Segmented Neutrophils % 60.9 %
[2018-07-10] MEDS: *HR* OxyCODONE Immed Rel 5 MG TABLET PO SCH ×5 (01:01→23:55)
[2018-07-10 05:25] LABS: INR 2.7; Prothrombin Time 29.9 Seconds (9.4-12.1)
[2018-07-10] MEDS: PHENobarbital 32.4 MG TABLET PO SCH ×2 (08:17→21:58)
[2018-07-10] MEDS: levETIRAcetam 250 MG TABLET PO SCH ×2 (08:17→21:57)
--- NOTE | 2018-07-10 08:28 | Internal Med Progress Note ---
Hospitalist Progress Note - Encounter Date of Encounter: 07/10/18 Time of Encounter: 08:30 - Subjective Interval History: Reportedly had 2 witnessed seizure episodes overnight - Exam Vitals: Temp Pulse Resp BP Pulse Ox 98.0 F 76 16 93/55 99 07/10/18 07:38 07/10/18 07:38 07/10/18 07:38 07/10/18 07:38 07/10/18 07:38 Exam: Gen - Awake, alert, oriented x 3, no acute distress HEENT - NCAT, PERRLA, EOMI, hearing grossly intact, oropharynx benign CV - RRR, normal S1 and S2, no M/R/G, no BLE edema Resp - Normal WOB, CTAB, no W/R/R GI - Soft, NT/ND, no masses, normal bowel sounds, Skin - Warm, dry, no rashes/lesions/ulcers Psych - Normal mood and affect, no depression or anxiety - Assessment and Plan (1) Seizure Current Visit: Yes Status: Chronic Assessment and Plan: 38 year old male who was admitted to hospitalist service with complaints of generalized pain, new compression fracture in his thoracic spine, and anemia. Additionally, he reported to ER staff that he was suicidal and, as such, he was admitted for suicidal ideations and pink slipped and had a sitter with him. He had reported multiple seizure episodes on this admission that resolved with ativan. He was transferred to the ICU for an ativan drip, but neuro recommended resuming his home seizures meds with IV loading doses. He was safely restarted on his meds of po keppra, vimpat and phenobarbital annd tolerated them well with no seizure activity He was transferred out of the ICU to a step down unit with no further reported seizure episodes. He was noted to have new compression fracture in his T5 and L5 vertebrae and was seen by spine who recommended no surgical intervention and prescribed a TLSO brace. He is medically clear to proceed to inpatient psych for further management of his suicidal ideation. 07/10. Psychiatry noted patient is not actively suicidal and does not warrant a transfer to inpatient psych. Pt recommend discharge to rehab. Follow up with social work for discharge planning. Awaiting rehab placement (2) Suicidal ideation Current Visit: Yes Status: Acute Assessment and Plan: seen by psychiatry and determined to be not actively suicidal (3) Anemia Current Visit: Yes Status: Chronic Assessment and Plan: Possibly secondary to chronic blood loss. Does note endorse any blood in his stools. Hemoglobin stable this am at 10.3. continue to monitor (4) Compression fracture of lumbar vertebra Current Visit: Yes Status: Acute Assessment and Plan: New L5 and T5 compression fracture. Likely traumatic Seen by pain. No acute surgical intervention. Recommend TLSO brace (5) Compression fracture of thoracic vertebra Current Visit: Yes Status: Acute Assessment and Plan: Pain control and orthopedics consult as above. (6) Antiphospholipid antibody syndrome Current Visit: No Status: Chronic Assessment and Plan: Will resume warfarin (7) DVT prophylaxis Current Visit: Yes Status: Acute Assessment and Plan: EPCD's. - Time Spent with Patient Total time spent is greater than 50% in coordination of care (as documented) at patient's floor/unit and/or counseling patient: Internal Medicine: Result - Labs CBC & Chem 7: 07/09/18 22:22 07/06/18 10:41 Labs: Short CBC 07/09/18 Range/Units 22:22 WBC 3.9 L (4.3-11.1) K/mcL Hgb 9.7 L (12.9-16.9) g/dL Hct 28.9 L (37.5-50.1) % Plt Count 115 L (140-400) K/mcL Neutrophils # 2.4 (1.6-8.9) K/mcL - ABG Interpretation ABG results: PT/INR, D-dimer PT 29.9 Seconds (9.4-12.1) H 07/10/18 04:16 - VTE Documentation of Mechanical Device: Intermittent pneumatic compression device Consult Discharge Plan - Plan Referrals: Mat Mitchell MD [Primary Care Provider] - (3) Anemia Qualifiers: Anemia type: unspecified type Qualified Code(s): D64.9 - Anemia, unspecified (4) Compression fracture of lumbar vertebra Qualifiers: Encounter type: initial encounter Lumbar vertebra fracture level: L5 Fracture type: closed Qualified Code(s): S32.050A - Wedge compression fracture of fifth lumbar vertebra, initial encounter for closed fracture (5) Compression fracture of thoracic vertebra Qualifiers: Encounter type: initial encounter Fracture type: closed Qualified Code(s): S22.000A - Wedge compression fracture of unspecified thoracic vertebra, initial encounter for closed fracture
--- NOTE | 2018-07-10 08:30 | Electrocardiograph Report ---
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
[2018-07-10] MEDS ORDERED: *HR* Warfarin 2.5 MG TABLET PO ONE (18:00)
[2018-07-10] MEDS: Warfarin perPT PO SCH (18:02)
[2018-07-11] MEDS: Melatonin 3 MG TABLET PO PRN
[2018-07-11] MEDS: *HR* OxyCODONE Immed Rel 5 MG TABLET PO SCH ×2 (06:23→12:51)
--- NOTE | 2018-07-11 08:07 | Internal Med Progress Note ---
Hospitalist Progress Note - Encounter Date of Encounter: 07/11/18 Time of Encounter: 09:00 - Subjective Interval History: Reportedly had 2 witnessed seizure episodes overnight - Exam Vitals: Temp Pulse Resp BP Pulse Ox 98.7 F 71 16 107/69 95 07/11/18 06:58 07/11/18 06:58 07/11/18 06:58 07/11/18 06:58 07/11/18 06:58 Exam: Gen - Awake, alert, oriented x 3, no acute distress HEENT - NCAT, PERRLA, EOMI, hearing grossly intact, oropharynx benign CV - RRR, normal S1 and S2, no M/R/G, no BLE edema Resp - Normal WOB, CTAB, no W/R/R GI - Soft, NT/ND, no masses, normal bowel sounds, Skin - Warm, dry, no rashes/lesions/ulcers Psych - Normal mood and affect, no depression or anxiety - Assessment and Plan (1) Seizure Current Visit: Yes Status: Chronic Assessment and Plan: 38 year old male who was admitted to hospitalist service with complaints of generalized pain, new compression fracture in his thoracic spine, and anemia. Additionally, he reported to ER staff that he was suicidal and, as such, he was admitted for suicidal ideations and pink slipped and had a sitter with him. He had reported multiple seizure episodes on this admission that resolved with ativan. He was transferred to the ICU for an ativan drip, but neuro recommended resuming his home seizures meds with IV loading doses. He was safely restarted on his meds of po keppra, vimpat and phenobarbital annd tolerated them well with no seizure activity He was transferred out of the ICU to a step down unit with no further reported seizure episodes. He was noted to have new compression fracture in his T5 and L5 vertebrae and was seen by spine who recommended no surgical intervention and prescribed a TLSO brace. He was medically clear to proceed to inpatient psych for further management of his suicidal ideation. 07/11. Psychiatry noted patient is not actively suicidal and does not warrant a transfer to inpatient psych. Pt recommend discharge to rehab. Follow up with social work for discharge planning. Awaiting rehab placement (2) Suicidal ideation Current Visit: Yes Status: Acute Assessment and Plan: seen by psychiatry and determined to be not actively suicidal (3) Anemia Current Visit: Yes Status: Chronic Assessment and Plan: Normocytic anemia secondary to chronic blood loss. Does note endorse any blood in his stools. Hemoglobin stable . continue to monitor (4) Compression fracture of lumbar vertebra Current Visit: Yes Status: Acute Assessment and Plan: New L5 and T5 compression fracture. Likely traumatic Seen by pain. No acute surgical intervention. Recommend TLSO brace (5) Compression fracture of thoracic vertebra Current Visit: Yes Status: Acute Assessment and Plan: Pain control and orthopedics consult as above. (6) Antiphospholipid antibody syndrome Current Visit: No Status: Chronic Assessment and Plan: Will resume warfarin (7) DVT prophylaxis Current Visit: Yes Status: Acute Assessment and Plan: EPCD's. - Time Spent with Patient Total time spent is greater than 50% in coordination of care (as documented) at patient's floor/unit and/or counseling patient: Internal Medicine: Result - Labs CBC & Chem 7: 07/11/18 08:28 07/11/18 08:54 - ABG Interpretation ABG results: PT/INR, D-dimer PT 29.9 Seconds (9.4-12.1) H 07/10/18 04:16 - VTE Documentation of Mechanical Device: Intermittent pneumatic compression device Consult Discharge Plan - Plan Referrals: Mat Mitchell MD [Primary Care Provider] - 07/19/18 4:15 pm Prescriptions: Carvedilol 3.125 mg PO BID #60 tablet Warfarin [Coumadin] 3 mg PO DAILY 30 Days #30 tablet (3) Anemia Qualifiers: Anemia type: unspecified type Qualified Code(s): D64.9 - Anemia, unspecified (4) Compression fracture of lumbar vertebra Qualifiers: Encounter type: initial encounter Lumbar vertebra fracture level: L5 Fracture type: closed Qualified Code(s): S32.050A - Wedge compression fracture of fifth lumbar vertebra, initial encounter for closed fracture (5) Compression fracture of thoracic vertebra Qualifiers: Encounter type: initial encounter Fracture type: closed Qualified Code(s): S22.000A - Wedge compression fracture of unspecified thoracic vertebra, initial encounter for closed fracture
[2018-07-11 08:14] LABS: Prothrombin Time 22.8 Seconds (9.4-12.1)
[2018-07-11 08:49] LABS: Basophils % 0.8 %; Eosinophils # 0.1 K/mcL (0.0-0.6); Eosinophils % 2.8 %; Hematocrit 34.5 % (37.5-50.1); Hemoglobin 10.7 g/dL (12.9-16.9); Immature Granulocytes % 0.4 % (0-4); Lymphocytes # 0.4 K/mcL (0.6-4.6); Lymphocytes % 16.8 %; Mean Corpuscular Hemoglobin 28.8 pg (28.0-33.3); Mean Platelet Volume 11.3 fL (9.4-12.4); Monocytes # 0.4 K/mcL (0.0-1.3); Monocytes % 14.8 %; Neutrophils # 1.6 K/mcL (1.6-8.9); Platelet Count 114 K/mcL (140-400); Red Blood Count 3.71 M/mcL (4.19-5.50); Red Cell Distribution Width 15.4 % (11.5-14.5); Segmented Neutrophils % 64.4 %
[2018-07-11] MEDS: PHENobarbital 32.4 MG TABLET PO SCH (08:57)
[2018-07-11] MEDS: levETIRAcetam 250 MG TABLET PO SCH (08:57)
[2018-07-11 09:42] LABS: Potassium 4.1 mEq/L (3.5-5.1)
[2018-07-11 11:26] VITALS: BP 100/64
--- NOTE | 2018-07-11 12:36 | Discharge Summary ---
Orders not resulted at time of discharge: Pending orders 07/12/18 04:00 Basic Metabolic Panel AM 0400 CBC [Complete Blood Count] [HEME] AM 0400 Magnesium AM 0400 PT/INR [Prothrombin Time INR] [COAG] AM 0400 Phosphorous AM 0400 07/13/18 04:00 CBC [Complete Blood Count] [HEME] AM 0400 Magnesium AM 0400 PT/INR [Prothrombin Time INR] [COAG] AM 0400 Phosphorous AM 0400 07/14/18 04:00 CBC [Complete Blood Count] [HEME] AM 0400 Magnesium AM 0400 PT/INR [Prothrombin Time INR] [COAG] AM 0400 Phosphorous AM 0400 07/15/18 04:00 CBC [Complete Blood Count] [HEME] AM 0400 Magnesium AM 0400 Phosphorous AM 0400 07/16/18 04:00 CBC [Complete Blood Count] [HEME] AM 0400 Magnesium AM 0400 Phosphorous AM 0400 07/17/18 04:00 CBC [Complete Blood Count] [HEME] AM 0400 Magnesium AM 0400 Phosphorous AM 0400 Date of Encounter: 07/11/18 Time of Encounter: 12:00 - Discharge Diagnosis (1) Seizure Priority: Primary Status: Chronic Assessment and Plan: 38 year old male who was admitted to hospitalist service with complaints of generalized pain, new compression fracture in his thoracic spine, and anemia. Additionally, he reported to ER staff that he was suicidal and, as such, he was admitted for suicidal ideations and pink slipped and had a sitter with him. He had reported multiple seizure episodes on this admission that resolved with ativan. He was transferred to the ICU for an ativan drip, but neuro recommended resuming his home seizures meds with IV loading doses. He was safely restarted on his meds of po keppra, vimpat and phenobarbital annd tolerated them well with no seizure activity He was transferred out of the ICU to a step down unit with no further reported seizure episodes. He was noted to have new compression fracture in his T5 and L5 vertebrae and was seen by spine who recommended no surgical intervention and prescribed a TLSO brace. He was medically clear to proceed to inpatient psych for further management of his suicidal ideation. Psychiatry noted patient is not actively suicidal and does not warrant a transfer to inpatient psych. Pt recommend discharge to rehab. Patient declined rehab and opted for home health with home PT instead. He was discharged in a stable condition. He was also noted to have a mild DAVID. His lisinopril has been discontinued, and he was discharged on only coreg. Encouraged oral hydration. 35minutes was spent discharging this patient (2) Suicidal ideation Priority: Secondary Status: Acute (3) Anemia Priority: Secondary Status: Chronic Qualifiers: Anemia type: unspecified type Qualified Code(s): D64.9 - Anemia, unspecified (4) Compression fracture of lumbar vertebra Priority: Primary Status: Acute Qualifiers: Encounter type: initial encounter Lumbar vertebra fracture level: L5 Fracture type: closed Qualified Code(s): S32.050A - Wedge compression fracture of fifth lumbar vertebra, initial encounter for closed fracture (5) Compression fracture of thoracic vertebra Priority: Primary Status: Acute Qualifiers: Encounter type: initial encounter Fracture type: closed Qualified Code(s) : S22.000A - Wedge compression fracture of unspecified thoracic vertebra, initial encounter for closed fracture (6) Antiphospholipid antibody syndrome Priority: Primary Status: Chronic (7) DVT prophylaxis Priority: Secondary Status: Acute Hospital course: Mr. Arguello is a 38 year old male - Time Spent with Patient Total time spent providing and/or coordinating discharge services: - Discharge Medications Prescriptions: Carvedilol 3.125 mg PO BID #60 tablet Warfarin [Coumadin] 3 mg PO DAILY 30 Days #30 tablet Home Medications: levETIRAcetam [Levetiracetam] 1,000 mg PO BID #30 tablet 01/14/17 [Rx] Atorvastatin Calcium [Lipitor] 20 mg PO HS 09/13/17 [History] Baclofen [Lioresal] 10 mg PO BID 09/13/17 [History] Lacosamide [Vimpat] 200 mg PO Q12H 09/13/17 [History] Multivitamin [One Daily Multivitamin] 1 each PO DAILY 09/13/17 [History] OxyCODONE Immed Rel [Roxicodone 10 MG] 10 mg PO TID 09/13/17 [History] PHENobarbital [Phenobarbital] 64.8 mg PO Q12H 09/13/17 [History] Quetiapine Fumarate [Seroquel] 50 mg PO TID 09/13/17 [History] Sertraline [Zoloft] 50 mg PO DAILY 09/13/17 [History] Carvedilol 3.125 mg PO BID #60 tablet 07/11/18 [Rx] Warfarin [Coumadin] 3 mg PO DAILY 30 Days #30 tablet 07/11/18 [Rx] Allergies/Adverse Reactions: 3 Allergy/AdvReac Type Severity Reaction Status Date / Time amitriptyline [From Elavil] Allergy Seizure Verified 07/04/18 20:47 Date of admission: 07/06/18 14:54 Primary care physician: Mat Mitchell MD Consults: 07/08/18 08:25 Consult to Archery Instructor [CONS] Routine Reason for SW Consult: discharge planning/ disposition 07/08/18 12:37 OT [Consult to Occupational Therapy] [CONS] Routine Comment: Evaluate, develop and implement POC Reason for Consult: eval for rehab placement Does patient have active BEDREST order?: No Is patient medically & hemodynamically stable?: Yes Patient assessed for mobility or mobilized this visit?: Yes - Constitutional Vitals: Temp Pulse Resp BP Pulse Ox 98.4 F 80 15 100/64 98 07/11/18 11:23 07/11/18 11:23 07/11/18 11:23 07/11/18 11:23 07/11/18 11:23 General appearance: Present: cachectic Exam: Gen - Awake, alert, oriented x 3, no acute distress HEENT - NCAT, PERRLA, EOMI, hearing grossly intact, oropharynx benign CV - RRR, normal S1 and S2, no M/R/G, no BLE edema Resp - Normal WOB, CTAB, no W/R/R GI - Soft, NT/ND, no masses, normal bowel sounds, Skin - Warm, dry, no rashes/lesions/ulcers Psych - Normal mood and affect, no depression or anxiety - Patient Status Disposition: Transfer Psychiatric Hosp Condition: Good - Discharge Instructions Follow Up With: Mat Mitchell MD [Primary Care Provider] - 07/19/18 4:15 pm - VTE Documentation of Mechanical Device: Intermittent pneumatic compression device
--- NOTE | 2018-07-11 12:54 | Physician Discharge Referral ---
Home Health/Hosp Referral Info Transfer to: Home Health - Diagnosis (1) Seizure Priority: Primary Status: Chronic (2) Suicidal ideation Priority: Primary Status: Acute (3) Anemia Priority: Primary Status: Chronic (4) Compression fracture of lumbar vertebra Priority: Primary Status: Acute (5) Compression fracture of thoracic vertebra Priority: Primary Status: Acute (6) Antiphospholipid antibody syndrome Priority: Primary Status: Chronic (7) DVT prophylaxis Status: Acute - Respiratory Orders Smoking Cessation: Smoking cessation has been advised. For more information, call the [place] Tobacco Quit Line at 4-917-XHZE-NOW. - Diet/Nutrition Diet/Nutrition Orders: Cardiac - Activity Activity Orders: Ambulate - Services Needed Following services are medically necessary services: Nursing, Home Health Aide, Physical Therapy - Transfer Medications Prescriptions: Carvedilol 3.125 mg PO BID #60 tablet Warfarin [Coumadin] 3 mg PO DAILY 30 Days #30 tablet Home Medications: levETIRAcetam [Levetiracetam] 1,000 mg PO BID #30 tablet 01/14/17 [Rx] Atorvastatin Calcium [Lipitor] 20 mg PO HS 09/13/17 [History] Baclofen [Lioresal] 10 mg PO BID 09/13/17 [History] Lacosamide [Vimpat] 200 mg PO Q12H 09/13/17 [History] Multivitamin [One Daily Multivitamin] 1 each PO DAILY 09/13/17 [History] OxyCODONE Immed Rel [Roxicodone 10 MG] 10 mg PO TID 09/13/17 [History] PHENobarbital [Phenobarbital] 64.8 mg PO Q12H 09/13/17 [History] Quetiapine Fumarate [Seroquel] 50 mg PO TID 09/13/17 [History] Sertraline [Zoloft] 50 mg PO DAILY 09/13/17 [History] Carvedilol 3.125 mg PO BID #60 tablet 07/11/18 [Rx] Warfarin [Coumadin] 3 mg PO DAILY 30 Days #30 tablet 07/11/18 [Rx] Allergies/Adverse Reactions: 3 Allergy/AdvReac Type Severity Reaction Status Date / Time amitriptyline [From Elavil] Allergy Seizure Verified 07/04/18 20:47 Certification: Further, I certify that my clinical findings support that this patient is homebound (i.e. absences from home require considerable and taxing effort and are for medical reasons or roman catholic services or infrequently or short duration when for other reasons) because: Homebound Reason: Patient requires assistance of a person or device to safely leave home Attestation: My signature below is to certify that this patient is under my care and that I, or nurse practitioner, or a physician's retail loan originator assistant working with me, has a face-to -face encounter with this patient.
[2018-07-11] MEDS ORDERED: *HR* Warfarin 3 MG TABLET PO ONE (18:00)
== END 2018-07-11 13:41 | disposition home or self-care (01) | DRG 101 ==
LOC: 3NENU 20:27 → EMEROOARM 20:27 → 3NENU 07-05 00:50 → ICNU 07-05 12:54 → 3ANU 07-06 18:53
PROVIDERS: ADMIT Pediatrics; ATTEND Pediatrics

== ENCOUNTER 2018-08-04 17:03 | Inpatient (IN) ==
[2018-08-04] MEDS ORDERED: *HR* LORazepam 2 MG/ML VIAL ONE (17:12)
[2018-08-04] MEDS ORDERED: *HR* LORazepam 2 MG/ML VIAL IVP ONE ×2 (17:14→17:30)
--- NOTE | 2018-08-04 17:25 | Emergency Department Note ---
Disposition Clinical Impression: Status epilepticus Altered mental status Qualifiers: Altered mental status type: unspecified Qualified Code(s): R41.82 - Altered mental status, unspecified Disposition: Admitted As Inpatient Condition: Fair General Adult HPI - General Chief complaint: ED Seizure Stated complaint: Seizure Time Seen by Provider: 08/04/18 17:10 - Related Data Home Medications Medication Instructions Recorded Confirmed RX: Baclofen [Lioresal] 10 mg PO BID 09/13/17 08/04/18 RX: Lacosamide [Vimpat] 200 mg PO Q12H 09/13/17 08/04/18 RX: Multivitamin [One Daily 1 each PO DAILY 09/13/17 08/04/18 Multivitamin] RX: OxyCODONE Immed Rel 10 mg PO TID 09/13/17 08/04/18 [Roxicodone 10 MG] RX: Quetiapine Fumarate [Seroquel] 50 mg PO TID 09/13/17 08/04/18 RX: Sertraline [Zoloft] 50 mg PO DAILY 09/13/17 08/04/18 Previous Rx's Medication Instructions Recorded RX: levETIRAcetam [Levetiracetam] 1,000 mg PO BID #30 tablet 01/14/17 RX: Carvedilol 3.125 mg PO BID #60 tablet 07/11/18 RX: Warfarin [Coumadin] 3 mg PO DAILY 30 Days #30 tablet 07/11/18 Allergies Allergy/AdvReac Type Severity Reaction Status Date / Time amitriptyline [From Elavil] Allergy Seizure Verified 07/04/18 20:47 Limitations: ROS unobtainable due to patients medical condition Past Medical History - Past Medical History Medical history: Reports: CVA, hyperlipidemia, hypertension, migraine, renal dis ease, seizures Surgical history: Reports: tracheostomy Psychiatric history: Reports: anxiety, depression, panic disorder - Social History Smoking Status: Current every day smoker Smokeless Tobacco Status: No Alcohol use: Reports: none Drug use: Reports: none Course Vital Signs Temperature 99.1 F 08/04/18 17:07 Pulse Rate 133 08/04/18 17:07 Respiratory Rate 20 08/04/18 17:07 Blood Pressure 187/129 08/04/18 17:07 O2 Sat by Pulse Oximetry 100 08/04/18 17:07 Temperature 99.1 F 08/04/18 17:07 Pulse Rate 118 08/04/18 20:29 Respiratory Rate 18 08/04/18 20:29 Blood Pressure 139/99 08/04/18 20:29 O2 Sat by Pulse Oximetry 99 08/04/18 20:29 Oxygen Delivery Oxygen Delivery Simple Mask Medical Decision Making - Lab Data Result diagrams: 08/04/18 17:46 08/04/18 17:46 Lab Results 08/04/18 08/04/18 08/04/18 Range/Units 17:46 17:46 17:46 WBC 7.7 (4.3-11.1) K/mcL RBC 3.56 L (4.19-5.50) M/mcL Hgb 10.3 L (12.9-16.9) g/dL Hct 32.0 L (37.5-50.1) % MCV 89.9 (83.0-100.0) fL MCH 28.9 (28.0-33.3) pg MCHC 32.2 (31.6-35.5) g/dL RDW 13.5 (11.5-14.5) % Plt Count 114 L (140-400) K/mcL MPV 11.7 (9.4-12.4) fL PT 17.6 H (9.4-12.1) Seconds INR 1.6 Sodium 135 L (136-145) mEq/L Potassium 4.0 (3.5-5.1) mEq/L Chloride 104 (98-107) mEq/L Carbon Dioxide 21 L (23-29) mEq/L BUN 18 (6-20) mg/dL Creatinine 1.47 H (0.70-1.30) mg/dL Est GFR ( Amer) > 60 (> 60) Est GFR (Non-Af Amer) 54 L (> 60) BUN/Creatinine Ratio 12 (6-26) Glucose 279 H (70-105) mg/dL Calculated Osmolality 292 (280-300) Calcium 8.5 L (8.6-10.3) mg/dL Magnesium (1.6-2.6) mg/dL Total Bilirubin 0.2 L (0.3-1.0) mg/dL Direct Bilirubin 0.1 (0.0-0.2) mg/dL Indirect Bilirubin 0.1 (0.0-1.2) mg/dL AST 15 (13-39) Units/L ALT 12 (7-52) Units/L Alkaline Phosphatase 87 (34-104) Units/L Creatine Kinase (30-223) Units/L Serum Total Protein 6.6 (6.4-8.9) g/dL Albumin 4.1 (3.5-5.7) g/dL Globulin 2.5 (2.4-3.5) g/dL Albumin/Globulin Ratio 1.6 (1.1-2.2) Urine Color (Yellow) Urine Clarity (Clear) Urine pH (5.0-8.0) pH Units Ur Specific [place] (1.010-1.025) Urine Protein (Neg-Trace) mg/dL Urine Glucose (UA) (Normal) mg/dL Urine Ketones (Negative) mg/dL Urine Blood (Negative) Urine Nitrite (Negative) Urine Bilirubin (Negative) Urine Urobilinogen (Normal) mg/dL Ur Leukocyte Esterase (Negative) Urine Microscopic RBC (0-3) per hpf Urine Microscopic WBC (0-3) per hpf Ur Squamous Epith Cells (None-Few) per lpf Urine Bacteria (None-Few) per hpf Hyaline Casts (None-Few) per lpf Phenobarbital (15-40) mcg/mL 08/04/18 08/04/18 08/04/18 Range/Units 17:46 17:46 18:21 WBC (4.3-11.1) K/mcL RBC (4.19-5.50) M/mcL Hgb (12.9-16.9) g/dL Hct (37.5-50.1) % MCV (83.0-100.0) fL MCH (28.0-33.3) pg MCHC (31.6-35.5) g/dL RDW (11.5-14.5) % Plt Count (140-400) K/mcL MPV (9.4-12.4) fL PT (9.4-12.1) Seconds INR Sodium (136-145) mEq/L Potassium (3.5-5.1) mEq/L Chloride (98-107) mEq/L Carbon Dioxide (23-29) mEq/L BUN (6-20) mg/dL Creatinine (0.70-1.30) mg/dL Est GFR ( Amer) (> 60) Est GFR (Non-Af Amer) (> 60) BUN/Creatinine Ratio (6-26) Glucose (70-105) mg/dL Calculated Osmolality (280-300) Calcium (8.6-10.3) mg/dL Magnesium 1.4 L (1.6-2.6) mg/dL Total Bilirubin (0.3-1.0) mg/dL Direct Bilirubin (0.0-0.2) mg/dL Indirect Bilirubin (0.0-1.2) mg/dL AST (13-39) Units/L ALT (7-52) Units/L Alkaline Phosphatase (34-104) Units/L Creatine Kinase 66 (30-223) Units/L Serum Total Protein (6.4-8.9) g/dL Albumin (3.5-5.7) g/dL Globulin (2.4-3.5) g/dL Albumin/Globulin Ratio (1.1-2.2) Urine Color Yellow (Yellow) Urine Clarity Clear (Clear) Urine pH 6.0 (5.0-8.0) pH Units Ur Specific [place] 1.029 H (1.010-1.025) Urine Protein >=1000 H (Neg-Trace) mg/dL Urine Glucose (UA) 100 H (Normal) mg/dL Urine Ketones Negative (Negative) mg/dL Urine Blood Moderate H (Negative) Urine Nitrite Negative (Negative) Urine Bilirubin Negative (Negative) Urine Urobilinogen Normal (Normal) mg/dL Ur Leukocyte Esterase Negative (Negative) Urine Microscopic RBC 0-3 (0-3) per hpf Urine Microscopic WBC 3-5 H (0-3) per hpf Ur Squamous Epith Cells Many H (None-Few) per lpf Urine Bacteria None Seen (None-Few) per hpf Hyaline Casts Few (None-Few) per lpf Phenobarbital < 1 L (15-40) mcg/mL Critical Care Time Critical Care Time: Yes Attestation: 30 minutes of critical care time was spent with this patient and status epilepticus with pulse rounds of medications and reassessments and laboratory and CT evaluation Attestation Statement - Attestation Attestation: I examined this patient and my medical decision-making was reviewed with the SOCIAL SCIENTIST/PA/Advanced Practice Nurse/Resident Physician. I agree with the documented findings, disposition and treatment plan as described except to the extent set forth below. I did see the patient immediately upon arrival and also spoke with the paramedics who state they were called because the patient was seizing at home and he was found in a lounge chair and he has had 6 or 7 seizures so far today. The patient does have a history of seizures. I did review the previous record. The patient is not able to give any history secondary to his medical condition of altered consciousness and being post ictal. There is no urinary inco ntinence. He did have one additional seizure when he was here in the room and did receive Ativan 2 mg IM at this point is no longer seizing. Was placed on a nonrebreather mask after he desaturated down to 80% and the oxygen saturation is currently 100%. The patient is having assessment done with labs, head CT, will be admitted to the hospital. We are waiting for the patient's mother to arrive. 1724 I did review the patient's EKG showing sinus tachycardia with rate of 134 bpm and does have prominent T waves and a did compared to the previous which does not have any peaking of the T waves. IV has now been placed. 1727 Patient's EKG does have evidence of peaked T waves and now the patient also did have a 9 beat run of ventricular tachycardia so patient will receive push calcium gluconate and also sodium bicarbonate I did discuss this with the nurse. Lab results are pending. The patient's mother has arrived and we will speak with her. Patient is no longer seizing at this time. 1755 Patient's phenobarbital level is less than 1 so will give him 10 mg/kg IV. He is not responsive enough to take oral seizure meds at this time 2030 Of note earlier in the patient's course he did have a run of ventricular tachycardia. After the calcium came the patient's blood pressure had s ignificantly improved as had his heart rate and a 12-lead EKG was repeated at this point there was no evidence of peaked T waves or hyperkalemia so the patient was not given the calcium. He remains stable at this time. 2058
[2018-08-04] MEDS ORDERED: 0.9 % Sodium Chloride 1,000 ML IVC ONE (17:26)
[2018-08-04] MEDS ORDERED: Sodium Bicarbonate 50 MEQ/50 ML VIAL IVP ONE (17:54)
--- NOTE | 2018-08-04 17:57 | Emergency Department Note ---
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 Patient arrived by ambulance. According to them, they found the patient on the bottom of his rocker and was not seizing at the time, however according to his mother the patient was seizing in his chair prior to the arrival of the ambulance. Timeline of reported seizure prior to arrival into the ED was 45 minutes. Patient was intially responsive when brought into the ED. He was able to follow commands. However 15 minutes into his arrival patient started actively seizing. He began demonstrating tonic clonic minutes. At this point he was unresponsive. He was given 2 mg of Ativan intramuscularly followed by 1 mg of Ativan IV at which point he stopped seizing. Patient was responsive at this point able to follow basic commands. Patient is currently taking keppra, phenobarbital, and vimpat. - Related Data Home Medications Medication Instructions Recorded Confirmed Baclofen [Lioresal] 10 mg PO BID 09/13/17 08/04/18 Lacosamide [Vimpat] 200 mg PO Q12H 09/13/17 08/04/18 Multivitamin [One Daily 1 each PO DAILY 09/13/17 08/04/18 Multivitamin] OxyCODONE Immed Rel [Roxicodone 10 10 mg PO TID 09/13/17 08/04/18 MG] Quetiapine Fumarate [Seroquel] 50 mg PO TID 09/13/17 08/04/18 Sertraline [Zoloft] 50 mg PO DAILY 09/13/17 08/04/18 Previous Rx's Medication Instructions Recorded levETIRAcetam [Levetiracetam] 1,000 mg PO BID #30 tablet 01/14/17 Carvedilol 3.125 mg PO BID #60 tablet 07/11/18 Warfarin [Coumadin] 3 mg PO DAILY 30 Days #30 tablet 07/11/18 Allergies Allergy/AdvReac Type Severity Reaction Status Date / Time amitriptyline [From Elavil] Allergy Seizure Verified 07/04/18 20:47 Past Medical History - Past Medical History Medical history: Reports: CVA, hyperlipidemia, hypertension, migraine, renal disease, seizures Surgical history: Reports: tracheostomy Psychiatric history: Reports: anxiety, depression, panic disorder - Social History Smoking Status: Current every day smoker Smokeless Tobacco Status: No Alcohol use: Reports: none Drug use: Reports: none Physical Exam - General Limitations: other (Patient was initially able to follow commands before seizing. Became alert and able responsive after seizure episode.) General appearance: lethargic, obtunded - Head Head exam: atraumatic, normocephalic, normal inspection - Neck Neck exam: Present: normal inspection, full ROM, trachea midline - Chest Chest inspection: Present: normal inspection, symmetric chest wall rise - Respiratory Respiratory exam: Present: respiratory distress, wheezes (mild wheezing in the R posterior lung post). Absent: stridor, accessory muscle use - Cardiovascular Cardiovascular exam: Present: tachycardia, +S1, +S2. Absent: systolic murmur, diastolic murmur, +S3, +S4 - Abdominal Exam Abdominal exam: Present: soft, Non-Tender, normal bowel sounds. Absent: guarding, rebound, rigidity - Extremities Exam Extremities exam: Present: normal capillary refill. Absent: pedal edema - Neurological Exam Neurological exam: Present: other (Patient was able to squeeze L hand and move L toes on command. Unable to do so on the RUE and RLE on command however patient was able to move.) - Skin Skin exam: Present: rash (erythematous scaly rash over the L antecubital region of the RUE. Also present in lower tibial region of LLE. Presence of livedo reticularis of UE b/l. ), erythema, other Course Course Narrative: We will assess for any metabolic abnormality as a potential cause for seizure. We will also order a head CT to rule out for any hemorrhage given patient has a prior history of antiphospholipid syndrome which is treated with warfarin. We will also assess blood medication levels of Keppra, phenobarbital, and vipmat. Was able to review EKG and showed sinus tachycardia with peaked T waves in V2 to V4 signifying possible hyperkalemia. We will give patient calcium gluconate to prevent any arrhythmia. - Reevaluation(s) Reevaluation #1: CT of the head revealed no acute intracranial abnormalities. Electrolyte levels did not reveal any profound abnormalities which might have been cited his seizures. There was some new onset right lung opacities noted. Will place patient on Zosyn and azithromycin for coverage for aspiration pneumonia. Phenobarbital level was very low and we will place the patient on initial dose of 600 mg phenobarbital IV. Was able to speak to hospitalist Dr. Reinoso who agreed to accept the patient. Patient will be now transferred to ICU. Vital Signs Temperature 99.1 F 08/04/18 17:07 Pulse Rate 133 08/04/18 17:07 Respiratory Rate 20 08/04/18 17:07 Blood Pressure 187/129 08/04/18 17:07 O2 Sat by Pulse Oximetry 100 08/04/18 17:07 Temperature 99.1 F 08/04/18 17:07 Pulse Rate 118 08/04/18 20:29 Respiratory Rate 18 08/04/18 20:29 Blood Pressure 139/99 08/04/18 20:29 O2 Sat by Pulse Oximetry 99 08/04/18 20:29 Oxygen Delivery Oxygen Delivery Simple Mask Head CT 08/04/18 17:13 IMPRESSION: No acute intracranial abnormality. Areas of encephalomalacia in the bilateral cerebral hemispheres and the left cerebellar hemisphere, likely related to old infarctions, stable. Tiny old infarction in the right cerebellar hemisphere, stable. Moderate parenchymal volume loss. Minimal chronic microvascular disease. D/ / Semaj Lovell MD / Semaj Lovell MD Interpreting Provider: Semaj Lovell MD Chest X-Ray 08/04/18 17:14 IMPRESSION: 1. Reticular opacities predominantly involving the right lung, new since 07/04/2018. Differential considerations include atypical infection or asymmetric edema. D/ / 08/04/2018 18:13:02 Leonela Hui MD / Lyndsey Dale Interpreting Provider: Leonela Hui MD Seizure - Lab Data Result diagrams: 08/04/18 17:46 08/04/18 17:46 Lab Results 08/04/18 08/04/18 08/04/18 Range/Units 17:46 17:46 17:46 WBC 7.7 (4.3-11.1) K/mcL RBC 3.56 L (4.19-5.50) M/mcL Hgb 10.3 L (12.9-16.9) g/dL Hct 32.0 L (37.5-50.1) % MCV 89.9 (83.0-100.0) fL MCH 28.9 (28.0-33.3) pg MCHC 32.2 (31.6-35.5) g/dL RDW 13.5 (11.5-14.5) % Plt Count 114 L (140-400) K/mcL MPV 11.7 (9.4-12.4) fL PT 17.6 H (9.4-12.1) Seconds INR 1.6 Sodium 135 L (136-145) mEq/L Potassium 4.0 (3.5-5.1) mEq/L Chloride 104 (98-107) mEq/L Carbon Dioxide 21 L (23-29) mEq/L BUN 18 (6-20) mg/dL Creatinine 1.47 H (0.70-1.30) mg/dL Est GFR ( Amer) > 60 (> 60) Est GFR (Non-Af Amer) 54 L (> 60) BUN/Creatinine Ratio 12 (6-26) Glucose 279 H (70-105) mg/dL Calculated Osmolality 292 (280-300) Calcium 8.5 L (8.6-10.3) mg/dL Magnesium (1.6-2.6) mg/dL Total Bilirubin 0.2 L (0.3-1.0) mg/dL Direct Bilirubin 0.1 (0.0-0.2) mg/dL Indirect Bilirubin 0.1 (0.0-1.2) mg/dL AST 15 (13-39) Units/L ALT 12 (7-52) Units/L Alkaline Phosphatase 87 (34-104) Units/L Creatine Kinase (30-223) Units/L Serum Total Protein 6.6 (6.4-8.9) g/dL Albumin 4.1 (3.5-5.7) g/dL Globulin 2.5 (2.4-3.5) g/dL Albumin/Globulin Ratio 1.6 (1.1-2.2) Urine Color (Yellow) Urine Clarity (Clear) Urine pH (5.0-8.0) pH Units Ur Specific [place] (1.010-1.025) Urine Protein (Neg-Trace) mg/dL Urine Glucose (UA) (Normal) mg/dL Urine Ketones (Negative) mg/dL Urine Blood (Negative) Urine Nitrite (Negative) Urine Bilirubin (Negative) Urine Urobilinogen (Normal) mg/dL Ur Leukocyte Esterase (Negative) Urine Microscopic RBC (0-3) per hpf Urine Microscopic WBC (0-3) per hpf Ur Squamous Epith Cells (None-Few) per lpf Urine Bacteria (None-Few) per hpf Hyaline Casts (None-Few) per lpf Phenobarbital (15-40) mcg/mL 08/04/18 08/04/18 08/04/18 Range/Units 17:46 17:46 18:21 WBC (4.3-11.1) K/mcL RBC (4.19-5.50) M/mcL Hgb (12.9-16.9) g/dL Hct (37.5-50.1) % MCV (83.0-100.0) fL MCH (28.0-33.3) pg MCHC (31.6-35.5) g/dL RDW (11.5-14.5) % Plt Count (140-400) K/mcL MPV (9.4-12.4) fL PT (9.4-12.1) Seconds INR Sodium (136-145) mEq/L Potassium (3.5-5.1) mEq/L Chloride (98-107) mEq/L Carbon Dioxide (23-29) mEq/L BUN (6-20) mg/dL Creatinine (0.70-1.30) mg/dL Est GFR ( Amer) (> 60) Est GFR (Non-Af Amer) (> 60) BUN/Creatinine Ratio (6-26) Glucose (70-105) mg/dL Calculated Osmolality (280-300) Calcium (8.6-10.3) mg/dL Magnesium 1.4 L (1.6-2.6) mg/dL Total Bilirubin (0.3-1.0) mg/dL Direct Bilirubin (0.0-0.2) mg/dL Indirect Bilirubin (0.0-1.2) mg/dL AST (13-39) Units/L ALT (7-52) Units/L Alkaline Phosphatase (34-104) Units/L Creatine Kinase 66 (30-223) Units/L Serum Total Protein (6.4-8.9) g/dL Albumin (3.5-5.7) g/dL Globulin (2.4-3.5) g/dL Albumin/Globulin Ratio (1.1-2.2) Urine Color Yellow (Yellow) Urine Clarity Clear (Clear) Urine pH 6.0 (5.0-8.0) pH Units Ur Specific [place] 1.029 H (1.010-1.025) Urine Protein >=1000 H (Neg-Trace) mg/dL Urine Glucose (UA) 100 H (Normal) mg/dL Urine Ketones Negative (Negative) mg/dL Urine Blood Moderate H (Negative) Urine Nitrite Negative (Negative) Urine Bilirubin Negative (Negative) Urine Urobilinogen Normal (Normal) mg/dL Ur Leukocyte Esterase Negative (Negative) Urine Microscopic RBC 0-3 (0-3) per hpf Urine Microscopic WBC 3-5 H (0-3) per hpf Ur Squamous Epith Cells Many H (None-Few) per lpf Urine Bacteria None Seen (None-Few) per hpf Hyaline Casts Few (None-Few) per lpf Phenobarbital < 1 L (15-40) mcg/mL
[2018-08-04 18:26] LABS: Hemoglobin 10.3 g/dL (12.9-16.9); Mean Corpuscular HGB Conc 32.2 g/dL (31.6-35.5); Mean Corpuscular Hemoglobin 28.9 pg (28.0-33.3); Mean Corpuscular Volume 89.9 fL (83.0-100.0); Mean Platelet Volume 11.7 fL (9.4-12.4); Platelet Count 114 K/mcL (140-400); Red Blood Count 3.56 M/mcL (4.19-5.50); Red Cell Distribution Width 13.5 % (11.5-14.5)
[2018-08-04 18:35] LABS: Bilirubin,Urine Negative (Negative); Blood,Urine Moderate (Negative); Clarity,Urine Clear (Clear); Color,Urine Yellow (Yellow); Glucose,Urine (UA) 100 mg/dL (Normal); Ketones,Urine Negative (Negative); Leukocyte Esterase,Urine Negative (Negative); Nitrite,Urine Negative (Negative); Protein,Urine >=1000 mg/dL (Neg-Trace); Specific Gravity,Urine 1.029 (1.010-1.025); Urobilinogen,Urine Normal (Normal)
[2018-08-04 18:40] LABS: Bacteria,Urine None Seen per hpf (None-Few); Hyaline Casts,Urine Few per lpf (None-Few); RBC,Urine 0-3 per hpf (0-3); Squamous Epithelial Cell,Urine Many per lpf (None-Few)
[2018-08-04 18:40] LABS: Prothrombin Time 17.6 Seconds (9.4-12.1)
[2018-08-04 18:41] LABS: INR 1.6
[2018-08-04 18:43] LABS: Magnesium 1.4 mg/dL (1.6-2.6)
[2018-08-04 18:44] LABS: BUN/Creatinine Ratio 12 (6-26); Bilirubin,Direct 0.1 mg/dL (0.0-0.2); Bilirubin,Total 0.2 mg/dL (0.3-1.0); Blood Urea Nitrogen 18 mg/dL (6-20); Calcium 8.5 mg/dL (8.6-10.3); Carbon Dioxide 21 mEq/L (23-29); Chloride 104 mEq/L (98-107); Glucose 279 mg/dL (70-105); Osmolality,Calculated 292 (280-300); Sodium 135 mEq/L (136-145); eGFR For Non-African Americans 54 (> 60)
[2018-08-04 18:45] LABS: Alanine Aminotransferase 12 Units/L (7-52); Albumin 4.1 g/dL (3.5-5.7); Albumin/Globulin Ratio 1.6 (1.1-2.2); Alkaline Phosphatase 87 Units/L (34-104); Aspartate Amino Transferase 15 Units/L (13-39); Bilirubin,Indirect 0.1 mg/dL (0.0-1.2); Globulin 2.5 g/dL (2.4-3.5); Total Protein 6.6 g/dL (6.4-8.9)
[2018-08-04] MEDS ORDERED: Azithromycin 500 MG in D5% in Water 250 ML IVPB ONE (20:14)
[2018-08-04] MEDS ORDERED: PHENOBARBITAL IVPB STA (20:28)
[2018-08-04] MEDS ORDERED: Piperacillin/Tazobactam 3.375 GM in 0.9 % Sodium Chloride Mini Bag 100 ML IVPB SCH (20:30)
--- NOTE | 2018-08-04 20:46 | Internal Med History&Physical ---
<IshmaelHaseeb - Last Filed: 08/04/18 23:25> Date of Encounter: 08/04/18 Time of Encounter: 20:44 Internal Medicine - H&P: HPI Chief complaint: Seizures History of present illness: Matthew Arguello is a 36 year old male with a PMH of CVA, anti-phospholipid synd dawn on Coumadin, HLD, HTN, migraine, renal disease, and seizures who presented to [facility] ED on 08/04/18 via EMS for seizures. Patient was seizing in his chair approximately 45 minutes before arrival to the ED. He reportedly had 6-7 seizures in the day. On arrival, patients vitals were as follows: Temperature 99.1, pulse 133, respiratory rate 20, blood pressure 187/129, O2 sat 100. Patient was initially responsive when brought in, and was able to follow commands. 15 minutes into his arrival, patient began actively seizing. Demonstrated tonic-clonic movements. Patient was unresponsive, and was given 2 mg of Ativan IM, followed by 1 mg of Ativan IV. Patient stopped seizing at this time. He was responsive and able to follow basic commands. There was no urinary incontinence. Patient was placed on a nonrebreather mask after desaturating down to the 80s. O2 sat was subsequently 100%. EKG demonstrated peaked T waves in V2 and V4, possible hyperkalemia. Patient was given calcium gluconate in the ED. Labs demonstrated low hemoglobin at 10.3, which appears to be at baseline. Cr eatinine was elevated at 1.47. Calcium 8.5, magnesium 1.4. Urinalysis demonstrated elevated urinary protein at greater than 1000, moderate amount of blood, elevated specific gravity. Patient normally takes Keppra, phenobarbital, and Vimpat. Patient had a previous admission for generalized pain, suicidal ideation, and seizure activity. At this time, he was transferred to the ICU for an Ativan d rip, but neurology recommended resuming his home seizure meds with IV loading doses. Patient was safely restarted on his home seizure meds. Patient was seen and examined at bedside; review of systems is unobtainable due to mental status. Patient is very somnolent; reactive to verbal stimuli. He is nonverbal at this time. Does not appear to be in any acute distress. Past Med Surg Social Fam HX - Past Medical History Medical history: CVA, hyperlipidemia, hypertension, migraine, renal disease, seizures Additional medical history: TBI Psychiatric history: anxiety, depression, panic disorder - Past Surgical History Surgical History: tracheostomy Additional surgical history: brain surgery - Social History Smoking Status: Current every day smoker Smokeless Tobacco Status: No Alcohol use: none Drug use: none Internal Medicine - H&P: Meds RX: levETIRAcetam [Levetiracetam] 1,000 mg PO BID #30 tablet 01/14/17 [Rx] RX: Baclofen [Lioresal] 10 mg PO BID 09/13/17 [History] RX: Lacosamide [Vimpat] 200 mg PO Q12H 09/13/17 [History] RX: Multivitamin [One Daily Multivitamin] 1 each PO DAILY 09/13/17 [History] RX: OxyCODONE Immed Rel [Roxicodone 10 MG] 10 mg PO TID 09/13/17 [History] RX: Quetiapine Fumarate [Seroquel] 50 mg PO TID 09/13/17 [History] RX: Sertraline [Zoloft] 50 mg PO DAILY 09/13/17 [History] RX: Carvedilol 3.125 mg PO BID #60 tablet 07/11/18 [Rx] RX: Warfarin [Coumadin] 3 mg PO DAILY 30 Days #30 tablet 07/11/18 [Rx] Allergy/AdvReac Type Severity Reaction Status Date / Time amitriptyline [From Elavil] Allergy Seizure Verified 07/04/18 20:47 ROS unobtainable: due to mental status All Systems PM: A 10-system review of systems was performed and is negative for pertinent findings except as documented above in the HPI. - Constitutional Vitals: Temp Pulse Resp BP Pulse Ox 99.1 F 118 18 139/99 99 08/04/18 17:07 08/04/18 20:29 08/04/18 20:29 08/04/18 20:29 08/04/18 20:29 Exam: General: Nonverbal, arousable to stimuli Head: Atraumatic, normocephalic ENT: Normal exam Neck: supple, trachea midline Cardiovascular: RRR, +S1, +S2, no murmurs, rubs, or gallops Respiratory: Shortened inspiratory and expiratory phase. Diminished breath sounds bilaterally. Snoring with periodic apneic breathing. Abdomen: Soft, nontender Extremities: healing, scrape like wound on L forearm, mutiple scabs on lower extremities Internal Med - H&P Results - Labs CBC & Chem 7: 08/04/18 17:46 08/04/18 17:46 Labs: Short CBC 08/04/18 Range/Units 17:46 WBC 7.7 (4.3-11.1) K/mcL Hgb 10.3 L (12.9-16.9) g/dL Hct 32.0 L (37.5-50.1) % Plt Count 114 L (140-400) K/mcL BMP 08/04/18 17:46 Sodium 135 L Potassium 4.0 Chloride 104 Carbon Dioxide 21 L BUN 18 Creatinine 1.47 H Glucose 279 H Calcium 8.5 L Liver Function 08/04/18 Range/Units 17:46 Total Bilirubin 0.2 L (0.3-1.0) mg/dL Direct Bilirubin 0.1 (0.0-0.2) mg/dL AST 15 (13-39) Units/L ALT 12 (7-52) Units/L Alkaline Phosphatase 87 (34-104) Units/L Albumin 4.1 (3.5-5.7) g/dL Urine 08/04/18 Range/Units 18:21 Urine Color Yellow (Yellow) Urine Clarity Clear (Clear) Urine pH 6.0 (5.0-8.0) pH Units Ur Specific [place] 1.029 H (1.010-1.025) Urine Protein >=1000 H (Neg-Trace) mg/dL Urine Glucose (UA) 100 H (Normal) mg/dL - Impressions ITS Impressions Head CT 08/04/18 17:13 IMPRESSION: No acute intracranial abnormality. Areas of encephalomalacia in the bilateral cerebral hemispheres and the left cerebellar hemisphere, likely related to old infarctions, stable. Tiny old infarction in the right cerebellar hemisphere, stable. Moderate parenchymal volume loss. Minimal chronic microvascular disease. D/ / Semaj Lovell MD / Semaj Lovell MD Interpreting Provider: Semaj Lovell MD Chest X-Ray 08/04/18 17:14 IMPRESSION: 1. Reticular opacities predominantly involving the right lung, new since 07/04/2018. Differential considerations include atypical infection or asymmetric edema. D/ / 08/04/2018 18:13:02 Leonela Hui MD / Lyndsey Dale Interpreting Provider: Leonela Hui MD - Assessment and plan (1) Seizure Current Visit: No Status: Chronic Assessment and plan: Patient was admitted for seizure activity - Patient has had 6-7 seizures today - After arrival to the ED, patient began actively seizing - Was given both intramuscular and intravenous Ativan; subsequently resolved - Seizures were associated with tonic-clonic movements - Normally takes Keppra, phenobarbital, and Vimpat at home CT head demonstrated: - No acute intracranial abnormality - Areas of encephalomalacia in the b/l cerebral hemispheres and the L cerebellar hemisphere, likely related to old infarctions, stable - Tiny old infarction in the right cerebellar hemisphere, stable. - Moderate parenchymal volume loss - Minimal chronic microvascular disease Plan: - Observation in the ICU with Ativan as needed - Seizure precautions - IV loading dose of keppra, phenobarbital, and vimpat; will restart patient's home medications afterwards - Ativan PRN (2) Antiphospholipid syndrome Current Visit: Yes Status: Acute Assessment and plan: Patient is known history of antiphospholipid syndrome - Anticoagulated on Coumadin - We will resume home meds (3) DAVID (acute kidney injury) Current Visit: Yes Status: Acute Assessment and plan: Patient is creatinine was elevated at 1.47; no known history of prior kidney disease - Avoid nephrotoxic agents - Gentle IV fluid hydration - Patient started on Zithromax and Zosyn (4) Hypertension Current Visit: Yes Status: Acute Assessment and plan: - Resume home medications Qualifiers: Qualified Code(s): I10 - Essential (primary) hypertension (5) PNA (pneumonia) Current Visit: Yes Status: Acute Assessment and plan: - Reticular opacities predominantly involving the right lung, new since 07/04/2018 - Differential considerations include atypical infection or asymmetric edema - Unasyn 1.5g IV Q6 Qualifiers: Qualified Code(s): J18.9 - Pneumonia, unspecified organism - Time Spent With Patient Total time spent is greater than 50% in coordination of care (as documented) at patient's floor/unit and/or counseling patient: 25 - 35 minutes <Jaime Ambriz - Last Filed: 08/04/18 23:53> All Systems PM: A 10-system review of systems was performed and is negative for pertinent fin dings except as documented above in the HPI. - Constitutional Vitals: Temp Pulse Resp BP Pulse Ox 99.1 F 118 18 139/99 97 08/04/18 17:07 08/04/18 20:29 08/04/18 20:29 08/04/18 20:29 08/04/18 21:18 Internal Med - H&P Results - Labs CBC & Chem 7: 08/04/18 17:46 08/04/18 17:46 Labs: Short CBC 08/04/18 Range/Units 17:46 WBC 7.7 (4.3-11.1) K/mcL Hgb 10.3 L (12.9-16.9) g/dL Hct 32.0 L (37.5-50.1) % Plt Count 114 L (140-400) K/mcL BMP 08/04/18 17:46 Sodium 135 L Potassium 4.0 Chloride 104 Carbon Dioxide 21 L BUN 18 Creatinine 1.47 H Glucose 279 H Calcium 8.5 L Liver Function 08/04/18 Range/Units 17:46 Total Bilirubin 0.2 L (0.3-1.0) mg/dL Direct Bilirubin 0.1 (0.0-0.2) mg/dL AST 15 (13-39) Units/L ALT 12 (7-52) Units/L Alkaline Phosphatase 87 (34-104) Units/L Albumin 4.1 (3.5-5.7) g/dL Urine 08/04/18 Range/Units 18:21 Urine Color Yellow (Yellow) Urine Clarity Clear (Clear) Urine pH 6.0 (5.0-8.0) pH Units Ur Specific [place] 1.029 H (1.010-1.025) Urine Protein >=1000 H (Neg-Trace) mg/dL Urine Glucose (UA) 100 H (Normal) mg/dL - Impressions ITS Impressions Head CT 08/04/18 17:13 IMPRESSION: No acute intracranial abnormality. Areas of encephalomalacia in the bilateral cerebral hemispheres and the left cerebellar hemisphere, likely related to old infarctions, stable. Tiny old infarction in the right cerebellar hemisphere, stable. Moderate parenchymal volume loss. Minimal chronic microvascular disease. D/ / Semaj Lovell MD / Semaj Lovell MD Interpreting Provider: Semaj Lovell MD Chest X-Ray 08/04/18 17:14 IMPRESSION: 1. Reticular opacities predominantly involving the right lung, new since 07/04/2018. Differential considerations include atypical infection or asymmetric edema. D/ / 08/04/2018 18:13:02 Leonela Hui MD / Lyndsey Dale Interpreting Provider: Leonela Hui MD - Time Spent With Patient Total time spent is greater than 50% in coordination of care (as documented) at patient's floor/unit and/or counseling patient: - Attending Attestation Matthew Arguello is a 38 year old man with a history of subdural hematoma with e ncephalomalacia and known seizure disorder who has been manage multiple times for breakthrough activity presenting now in a postictal state after being found down by his family however upon arrival to the ER he then had another generalized tonic-clonic episode requiring lorazepam. Family history remarkable for hypertension in father. Physical exam remarkable for thin white male who is somnolent but arousable to stimuli. Noted to be snoring with occasional apneic episodes. CTABL. Nl s1/s2, no m/r/g. Abdomen non-distended. No c/c/e. Healing erythematous wound noted on left forearm. No focal deficits apparent. Unable to assess psych affect due to mental status. Skin warm. We shall admit to inpatient service in the ICU due to risk of ongoing seizure activity and observation for airway maintenance. Advised to start loading doses of his antiepileptic agents and continue with IV as follows: Keppra 1000mg q12 hours IV, Vimpat 200mg IV BID and Phenobarbital 100mg q12 hours, Ativan prn for breakthrough seizures. Drug levels and urine drug screen should be sent. He will benefit from neurology input. When feasible he can be transitioned to oral medications. Monitor electrolytes and check CK level. IV fluid hydration for acute kidney injury. Switch antibiotics to ampicillin/sulbactam for possible aspiration pneumonia given the x-ray findings and his recent history; a short course should suffice. Obtain blood and sputum cultures if productive. JULIÁN PRETTY.
[2018-08-04] MEDS ORDERED: Naloxone 0.4 MG/ML INJ IVP PRN (21:53)
[2018-08-04 22:34] LABS: Amphetamine Screen,Urine Negative ng/mL (Cutoff=1000); Barbiturate Screen,Urine Negative ng/mL (Cutoff=200); Benzodiazepines Screen,Urine Negative ng/mL (Cutoff=200); Cannabinoid Screen,Urine Negative ng/mL (Cutoff = 50); Cocaine Screen,Urine Negative ng/mL (Cutoff= 300); Opiate Screen,Urine Negative ng/mL (Cutoff=300); Phencyclidine Screen,Urine Negative ng/mL (Cutoff=25)
[2018-08-04] MEDS: 0.9 % Sodium Chloride 1,000 ML IVC SCH (22:34)
[2018-08-05] MEDS: Ampicillin/Sulbactam 1,500 MG in 0.9 % Sodium Chloride Mini Bag 100 ML IVPB SCH ×5 (00:35→23:39)
[2018-08-05] MEDS: *HR* Heparin 5,000 UNIT/ML VIAL SQ SCH ×4 (00:55→23:39)
[2018-08-05] MEDS: *HR* LORazepam 2 MG/ML VIAL IVP PRN ×2 (00:55→21:52)
[2018-08-05 03:40] LABS: Immature Granulocytes % 0.2 % (0-4)
[2018-08-05 03:42] LABS: Hematocrit 28.2 % (37.5-50.1); Hemoglobin 9.5 g/dL (12.9-16.9); Immature Platelets 6.6 % (1.1-6.1); Lymphocytes # 0.5 K/mcL (0.6-4.6); Lymphocytes % 11.1 %; Mean Corpuscular HGB Conc 33.7 g/dL (31.6-35.5); Mean Corpuscular Hemoglobin 29.4 pg (28.0-33.3); Mean Corpuscular Volume 87.3 fL (83.0-100.0); Monocytes # 0.6 K/mcL (0.0-1.3); Neutrophils # 3.5 K/mcL (1.6-8.9); Red Blood Count 3.23 M/mcL (4.19-5.50); Red Cell Distribution Width 13.5 % (11.5-14.5); Segmented Neutrophils % 75.7 %
[2018-08-05 03:44] LABS: Platelet Count 70 K/mcL (140-400)
[2018-08-05 03:47] LABS: INR 1.6; Prothrombin Time 17.6 Seconds (9.4-12.1)
[2018-08-05 03:59] LABS: BUN/Creatinine Ratio 13 (6-26); Blood Urea Nitrogen 17 mg/dL (6-20); Calcium 8.6 mg/dL (8.6-10.3); Carbon Dioxide 23 mEq/L (23-29); Chloride 105 mEq/L (98-107); Glucose 119 mg/dL (70-105); Osmolality,Calculated 283 (280-300); Sodium 135 mEq/L (136-145); eGFR For Non-African Americans > 60 (> 60)
[2018-08-05] MEDS: Baclofen 10 MG TABLET PO SCH ×2 (07:44→21:53)
[2018-08-05] MEDS: levETIRAcetam 250 MG TABLET PO SCH ×2 (07:45→21:52)
[2018-08-05] MEDS: Multivit/Ca/Min/Fe/FA 1 TAB TABLET PO SCH (07:45)
[2018-08-05] MEDS: *HR* OxyCODONE Immed Rel 5 MG TABLET PO SCH ×3 (07:45→21:52)
[2018-08-05] MEDS: 0.9 % Sodium Chloride 1,000 ML IVC SCH (09:12)
--- NOTE | 2018-08-05 09:33 | Internal Med Progress Note ---
Addendum entered and electronically signed by Kuldeep Jones DO 08/07/18 12:27: Original Note: <ShannonJosé Miguel T - Last Filed: 08/05/18 11:58> Hospitalist Progress Note - Encounter Date of Encounter: 08/05/18 Time of Encounter: 09:00 - Subjective Interval History: Pt sleeping in bed. Arousable but falls asleep. Had just received morning meds 20 min before my encounter. Says feels fatigued but denied new seizure, oral trauma, significant alcohol use, loss of bowel/bladder function, blurry vision, diplopia, chest pain, sob, abdominal pain. - Exam Vitals: Temp Pulse Resp BP Pulse Ox 98.1 F 102 18 117/78 99 08/05/18 08:00 08/05/18 09:00 08/05/18 09:00 08/05/18 09:00 08/05/18 09:00 Exam: General: Sleeping but arousable to voice, lethargic, wearing oxymask, no signs of acute distress or toxicity. Head: Atraumatic, normocephalic ENT: EOMi, pupils equal and round Neck: supple, trachea midline Chest: Symmetric chest rise, non tender Cardiovascular: RRR, +S1/S2, no murmurs, rubs, heaves, thrills appreciated, no edema, radial pulse 2+ bilat Respiratory: Decreased air movement, diminishment at bases R>L, no wheezes, rhonci, rales appreciated. Abdomen: Soft, non tender, non distended, no guarding, rigidity Extremities: L mid forearm excoriation - Assessment and Plan (1) Seizure Current Visit: Yes Status: Chronic Assessment and Plan: -Admitted 08/04/18 post 6-7 seizures at home. -Seizure in ED and given IV and IM ativan which resolved. -No seizures reported since. -Home antiepileptics include lacosamide, levetiracetam, and phenobarbitol. -Claims to take all meds as prescribed. -Has home med listed as baclofen. Could not tell me if he has been taking it. Baclofen withdrawal seizure possible. Baclofen has resumed. -CT head with areas of encephalomalacia in bilateral cerebral hemispheres and L cerebellar hemisphere, likely from previous infarcts. -UDS neg except for phenobarb which is listed as home med and received here but urine level < 1. Unlikely taking home meds. -Remains post ictal today. -Given loading doses of home antiepileptics at admission and restart of home dosing to follow. -Currently in ICU but can transfer to when bed available. -Will consult neuro today. (2) DAVID (acute kidney injury) Current Visit: Yes Status: Acute Assessment and Plan: -Cr improved from 1.47 on admission to 1.26 today. -Received IV fluids on admission. -Will avoid nephrotoxins and trend renal function and urine output. (3) Tachycardia Current Visit: No Status: Acute Assessment and Plan: -Tachycardic mostly since arrival. HR 133 at arrival, 102 most recent. - (4) Hypertension Current Visit: Yes Status: Acute Assessment and Plan: -Hx of HTN, 187/129 in ED, normotensive 117/78 most recent. -Carvedilol controlling BP well. (5) Antiphospholipid syndrome Current Visit: Yes Status: Acute Assessment and Plan: -Hx of antiphospholipid syndrome anticoagulated with warfarin. -INR 1.6 - (6) PNA (pneumonia) Current Visit: Yes Status: Acute Assessment and Plan: -CXR: Reticular opacities predominantly involving the right lung, new since 07/04/2018. Differential considerations include atypical infection or asymmetric edema. -Received 1x dose zosyn and azithromycin. -Day 2 of ampicillin/sulbactam -Requiring oxymask at 2L, SpO2 99% DVT Prophylaxis: Heparin - Time Spent with Patient Total time spent is greater than 50% in coordination of care (as documented) at patient's floor/unit and/or counseling patient: less than 15 minutes Plan of Care Discussed with: patient Internal Medicine: Result - Labs CBC & Chem 7: 08/05/18 03:29 08/05/18 03:29 Labs: Short CBC 08/04/18 08/05/18 Range/Units 17:46 03:29 WBC 7.7 4.6 (4.3-11.1) K/mcL Hgb 10.3 L 9.5 L (12.9-16.9) g/dL Hct 32.0 L 28.2 L (37.5-50.1) % Plt Count 114 L 70 L (140-400) K/mcL Neutrophils # 3.5 (1.6-8.9) K/mcL BMP 08/04/18 08/05/18 17:46 03:29 Sodium 135 L 135 L Potassium 4.0 4.0 Chloride 104 105 Carbon Dioxide 21 L 23 BUN 18 17 Creatinine 1.47 H 1.26 Glucose 279 H 119 H Calcium 8.5 L 8.6 Liver Function 08/04/18 Range/Units 17:46 Total Bilirubin 0.2 L (0.3-1.0) mg/dL Direct Bilirubin 0.1 (0.0-0.2) mg/dL AST 15 (13-39) Units/L ALT 12 (7-52) Units/L Alkaline Phosphatase 87 (34-104) Units/L Albumin 4.1 (3.5-5.7) g/dL Urine 08/04/18 Range/Units 18:21 Urine Color Yellow (Yellow) Urine Clarity Clear (Clear) Urine pH 6.0 (5.0-8.0) pH Units Ur Specific [place] 1.029 H (1.010-1.025) Urine Protein >=1000 H (Neg-Trace) mg/dL Urine Glucose (UA) 100 H (Normal) mg/dL - ABG Interpretation ABG results: PT/INR, D-dimer PT 17.6 Seconds (9.4-12.1) H 08/05/18 03:29 - Impressions Impressions Head CT 08/04/18 17:13 IMPRESSION: No acute intracranial abnormality. Areas of encephalomalacia in the bilateral cerebral hemispheres and the left cerebellar hemisphere, likely related to old infarctions, stable. Tiny old infarction in the right cerebellar hemisphere, stable. Moderate parenchymal volume loss. Minimal chronic microvascular disease. D/ / Semaj Lovell MD / Semaj Lovell MD Interpreting Provider: eSmaj Lovell MD Chest X-Ray 08/04/18 17:14 IMPRESSION: 1. Reticular opacities predominantly involving the right lung, new since 07/04/2018. Differential considerations include atypical infection or asymmetric edema. D/ / 08/04/2018 18:13:02 Leonela Hui MD / Lyndsey Dale Interpreting Provider: Leonela Hui MD - VTE Documentation of Mechanical Device: Graduated compression elastic hosiery Consult Discharge Plan - Plan Referrals: NONE,PCP [Primary Care Provider] - <Kuldeep Jones - Last Filed: 08/05/18 14:02> Hospitalist Progress Note - Exam Vitals: Temp Pulse Resp BP Pulse Ox 98.8 F 94 18 139/90 99 08/05/18 13:29 08/05/18 13:32 08/05/18 13:29 08/05/18 13:29 08/05/18 13:29 - Assessment and Plan (1) Tachycardia Current Visit: No Status: Acute (2) Seizure Current Visit: Yes Status: Chronic (3) Antiphospholipid syndrome Current Visit: Yes Status: Acute (4) DAVID (acute kidney injury) Current Visit: Yes Status: Acute (5) Hypertension Current Visit: Yes Status: Acute (6) PNA (pneumonia) Current Visit: Yes Status: Suspected (7) Tobacco abuse Current Visit: No Status: Chronic (8) Anemia Current Visit: No Status: Suspected (9) Seizure disorder Current Visit: Yes Status: Acute - Time Spent with Patient Total time spent is greater than 50% in coordination of care (as documented) at patient's floor/unit and/or counseling patient: Internal Medicine: Result - Labs CBC & Chem 7: 08/05/18 03:29 08/05/18 03:29 Labs: Short CBC 08/04/18 08/05/18 Range/Units 17:46 03:29 WBC 7.7 4.6 (4.3-11.1) K/mcL Hgb 10.3 L 9.5 L (12.9-16.9) g/dL Hct 32.0 L 28.2 L (37.5-50.1) % Plt Count 114 L 70 L (140-400) K/mcL Neutrophils # 3.5 (1.6-8.9) K/mcL BMP 08/04/18 08/05/18 17:46 03:29 Sodium 135 L 135 L Potassium 4.0 4.0 Chloride 104 105 Carbon Dioxide 21 L 23 BUN 18 17 Creatinine 1.47 H 1.26 Glucose 279 H 119 H Calcium 8.5 L 8.6 Liver Function 08/04/18 Range/Units 17:46 Total Bilirubin 0.2 L (0.3-1.0) mg/dL Direct Bilirubin 0.1 (0.0-0.2) mg/dL AST 15 (13-39) Units/L ALT 12 (7-52) Units/L Alkaline Phosphatase 87 (34-104) Units/L Albumin 4.1 (3.5-5.7) g/dL Urine 08/04/18 Range/Units 18:21 Urine Color Yellow (Yellow) Urine Clarity Clear (Clear) Urine pH 6.0 (5.0-8.0) pH Units Ur Specific [place] 1.029 H (1.010-1.025) Urine Protein >=1000 H (Neg-Trace) mg/dL Urine Glucose (UA) 100 H (Normal) mg/dL - ABG Interpretation ABG results: PT/INR, D-dimer PT 17.6 Seconds (9.4-12.1) H 08/05/18 03:29 - Impressions Impressions Head CT 08/04/18 17:13 IMPRESSION: No acute intracranial abnormality. Areas of encephalomalacia in the bilateral cerebral hemispheres and the left cerebellar hemisphere, likely related to old infarctions, stable. Tiny old infarction in the right cerebellar hemisphere, stable. Moderate parenchymal volume loss. Minimal chronic microvascular disease. D/ / Semaj Lovell MD / Semaj Lovell MD Interpreting Provider: Semaj Lovell MD Chest X-Ray 08/04/18 17:14 IMPRESSION: 1. Reticular opacities predominantly involving the right lung, new since 07/04/2018. Differential considerations include atypical infection or asymmetric edema. D/ / 08/04/2018 18:13:02 Leonela Hui MD / Lyndsey Dale Interpreting Provider: Leonela Hui MD - Attending Attestation I examined this patient and my medical decision-making was reviewed with the Resident Physician on 08/05/18. I agree with the documented findings, disposition and treatment plan as described except to the extent set forth below. Mr Arguello is currently admitted for seizure without status. He remains moderate to high risk due to potential for worsening clinical status. Mr Arguello is resting. He has received his usual meds and seems to be more somnolent. No fever or chills. No further seizure activity. Exam alert Comfortable Mucus membranes dry Heart reg No wheeze abd soft Moves all extremities. I/P 1. Seizure disorder 2. Anemia - does not appear to have had prior work up . Will need to explore in future. Further diagnoses and plan as above. <José Miguel Shannon - Last Filed: 08/05/18 11:58> (4) Hypertension Qualifiers: Qualified Code(s): I10 - Essential (primary) hypertension (6) PNA (pneumonia) Qualifiers: Qualified Code(s): J18.9 - Pneumonia, unspecified organism <Kuldeep Jones - Last Filed: 08/05/18 14:02> (5) Hypertension Qualifiers: Hypertension type: essential hypertension Qualified Code(s): I10 - Essential (primary) hypertension (6) PNA (pneumonia) Qualifiers: Pneumonia type: aspiration pneumonia Aspiration pneumonia type: due to gastric secretions Laterality: right Lung location: middle lobe of lung Qualified Code(s): J69.0 - Pneumonitis due to inhalation of food and vomit (8) Anemia Qualifiers: Anemia type: other cause Other causes of anemia: chronic disease, other Qualified Code(s): D63.8 - Anemia in other chronic diseases classified elsewhere
--- NOTE | 2018-08-05 10:47 | Neurology - Consult Note ---
<Bull Pendleton - Last Filed: 08/05/18 11:46> Date of Encounter: 08/05/18 Time of Encounter: 10:44 Assessment and Plan (1) Seizure Current Visit: Yes Status: Chronic 30-year-old male presents with seizures. History of complex partial seizures, intractable CT head shows areas of encephalomalacia in the bilateral cerebral hemispheres in the left cerebellar hemisphere. Patient follows Dr. Carrasco and is on Keppra, Vimpat, phenobarbital for seizures. Phenobarbital level is less than 1. Unclear if patient is taking his medications. Reviewing his home medication list patient is on very sedating medications including Zoloft, Seroquel, 10 mg of Roxicodone 3 times a day, baclofen 10 mg by mouth twice a day. These medications have been continued inpatient. I would recommend decreasing dose of oxycodone and baclofen as patient is very somnolent. Will obtain MRI, continue Keppra, phenobarbital, Vimpat. (2) Antiphospholipid syndrome Current Visit: Yes Status: Acute (3) DAVID (acute kidney injury) Current Visit: Yes Status: Acute (4) Hypertension Current Visit: Yes Status: Acute Qualifiers: Qualified Code(s): I10 - Essential (primary) hypertension (5) PNA (pneumonia) Current Visit: Yes Status: Acute Qualifiers: Qualified Code(s): J18.9 - Pneumonia, unspecified organism History of Present Illness Chief complaint: seizures HPI: Mr. Arguello is a 38 year old male presented with chief complaint of seizures. Patient was seen to have seizure in in a chair he was sitting in for 45 minutes by his mother. According to EMR patient has had 6-7 seizures a day. When I examined the patient he is very somnolent able to state his name, month of the year. He is not oriented to situation, time. He reports he does not know when he first started having seizures or if he has a history of head trauma, CVA, [employer]AM[employer] infection. In the emergency department patient was seen to have tonic-clonic seizures and given 2 mg of Ativan followed by 1 mg of Ativan. Patient takes Keppra, phenobarbital and Vimpat at home for seizures. Patient was restarted on his home seizure meds with IV loading doses. Attempted contact was made to patient's mother who had witnessed a seizure and called 911 but there is no response. Reviewing ECW patient has a history of recurrent subdural hematoma while on Coumadin therapy for antiphospholipid syndrome. saw his neurologist last October 2017. Unclear if he has been compliant with his seizure medications. Past Med Surg Social Fam HX - Past Medical History Medical history: CVA, hyperlipidemia, hypertension, migraine, renal disease, seizures Additional medical history: TBI Psychiatric history: anxiety, depression, panic disorder - Past Surgical History Surgical History: tracheostomy Additional surgical history: brain surgery - Social History Smoking Status: Current every day smoker Smokeless Tobacco Status: No Alcohol use: none Drug use: none Medications and Allergies levETIRAcetam [Levetiracetam] 1,000 mg PO BID #30 tablet 01/14/17 [Rx] Baclofen [Lioresal] 10 mg PO BID 09/13/17 [History] Lacosamide [Vimpat] 200 mg PO Q12H 09/13/17 [History] Multivitamin [One Daily Multivitamin] 1 each PO DAILY 09/13/17 [History] OxyCODONE Immed Rel [Roxicodone 10 MG] 10 mg PO TID 09/13/17 [History] Quetiapine Fumarate [Seroquel] 50 mg PO TID 09/13/17 [History] Sertraline [Zoloft] 50 mg PO DAILY 09/13/17 [History] Carvedilol 3.125 mg PO BID #60 tablet 07/11/18 [Rx] Warfarin [Coumadin] 1.5 mg PO DAILY 08/05/18 [History] Allergy/AdvReac Type Severity Reaction Status Date / Time amitriptyline [From [facility]] Allergy Seizure Verified 07/04/18 20:47 ROS unobtainable: due to mental status All Systems: The remainder of the systems were reviewed and are negative Physical Examination - Vital Signs Vital Signs: Initial Vital Signs Temp Pulse Resp BP Pulse Ox 99.1 F 133 20 187/129 100 08/04/18 17:07 08/04/18 17:07 08/04/18 17:07 08/04/18 17:07 08/04/18 17:07 - Exam Exam: General: Somnolent HEENT: Head atraumatic, normocephalic, EOMI, PERRL, absent ear discharge or trauma, Moist Mucous Membranes, uvula midline Neck: nontender to palpation, absent lymphadenopathy, Cardiovascualr: Sinus tachycardia without murmur, absent gallops or rubs, absent pedal edema, radial pulses 2 out of 4 Lungs: Clear to auscultation bilaterally, not in respiratory distress Abdomen: Soft nontender, nondistended positive bowel sounds, absent hepatomegaly Skin: warm and dry, absent rash, absent open wounds and nodules MSK: absent clubbing, cyanosis, joints without swelling Psych: Somnolent - Constitutional General appearance: other - Neurologic Sensorimotor examination: intact, seizure Motor examination - right side: 02/12: deltoids, biceps, triceps, wrist flexion, wrist extension, stage builder, hip flexors, tibialis Anterior, quadriceps, toe extension (EHL), plantarflexion Motor examination - left side: 02/12: deltoids, biceps, triceps, wrist flexion, wrist extension, hip flexors, stage builder, quadriceps, tibialis Anterior, toe extension (EHL), plantarflexion Detailed sensory examination: other (Unable to do due to patient's mental status) Reflex and gait examination: other (Unable to do due to patient's mental status) Reflexes: Biceps: 2+, Triceps: 2+, Brachioradialis: 2+, Patella: 2+, Achilles: 2+ Mental Status Examination: awake, alert, oriented to person, follows commands appropriately (All his commands intermittently), drowsy, lethargic, makes eye contact Cranial nerve examination: PERRL, EOMI, no dysarthria, flexes SCM and trapezius muscles symmetrically with full power, tongue protrudes midline Results - Laboratory Findings CBC and BMP: 08/05/18 03:29 08/05/18 03:29 Abnormal lab findings: Abnormal lab results RBC 3.23 M/mcL (4.19-5.50) L 08/05/18 03:29 Hgb 9.5 g/dL (12.9-16.9) L 08/05/18 03:29 Hct 28.2 % (37.5-50.1) L 08/05/18 03:29 Plt Count 70 K/mcL (140-400) L 08/05/18 03:29 Lymphocytes # 0.5 K/mcL (0.6-4.6) L 08/05/18 03:29 Immature Plt Fraction 6.6 % (1.1-6.1) H 08/05/18 03:29 PT 17.6 Seconds (9.4-12.1) H 08/05/18 03:29 Sodium 135 mEq/L (136-145) L 08/05/18 03:29 Glucose 119 mg/dL (70-105) H 08/05/18 03:29 POC Glucose 136 mg/dL (70-99) H 08/04/18 20:57 Magnesium 1.4 mg/dL (1.6-2.6) L 08/04/18 17:46 Total Bilirubin 0.2 mg/dL (0.3-1.0) L 08/04/18 17:46 Ur Specific [place] 1.029 (1.010-1.025) H 08/04/18 18:21 Urine Protein >=1000 mg/dL (Neg-Trace) H 08/04/18 18:21 Urine Glucose (UA) 100 mg/dL (Normal) H 08/04/18 18:21 Urine Blood Moderate (Negative) H 08/04/18 18:21 Urine Microscopic WBC 3-5 per hpf (0-3) H 08/04/18 18:21 Ur Squamous Epith Cells Many per lpf (None-Few) H 08/04/18 18:21 Phenobarbital < 1 mcg/mL (15-40) L 08/04/18 17:46 Consult Discharge Plan - Plan Referrals: NONE,PCP [Primary Care Provider] - <Esteban Waddell - Last Filed: 08/05/18 17:28> Time of Encounter: 17:20 Assessment and Plan (1) Seizure Current Visit: Yes Status: Chronic I agree with the assessment as stated above. Patient experienced a breakthrough seizure however is now alert and oriented. His mother was not here so I am not certain whether not this is his true baseline. But he was able to engage follow commands and answer questions. He has obvious cognitive difficulties. I did review the CT of this scan of the brain which does reveal severe generalized atrophy as well as encephalomalacia in both hemispheres. If he does take phenobarbital at home he did not have a level. Patient could not tell me who has epileptic pathologist's. Supposedly he is on Keppra and Vimpat. He was loaded on both. At this juncture I do not feel that an EEG is necessary. I will reevaluate him tomorrow. Hopefully we will get to speak with his mother at some point to determine how much support he has at home. MRI scan scan of the brain is pending. History of Present Illness HPI: The chart was reviewed, the patient was seen and examined. Case was discussed with Dr. Pendleton. I agree with his assessment as stated above. Specific history is scant as the patient's mother is not available at this time. Apparently he has a history of generalized tonic-clonic seizures, he is had multiple strokes, has some cognitive decline he may also have issues with compliance. ROS unobtainable: due to mental status All Systems: The remainder of the systems were reviewed and are negative Physical Examination - Vital Signs Vital Signs: Initial Vital Signs Temp Pulse Resp BP Pulse Ox 99.1 F 133 20 187/129 100 08/04/18 17:07 08/04/18 17:07 08/04/18 17:07 08/04/18 17:07 08/04/18 17:07 - Exam Exam: I agree with the neurologic examination as documented. I did not however examine the patient's neck or listen to the heart or lungs. - Neurologic Mental Status Examination: oriented to place (Patient knows that he is in [facility]. However he is not a good historian and has obvious cognitive deficiencies.), follows commands appropriately Cranial nerve examination: sensory to face intact Results - Laboratory Findings CBC and BMP: 08/05/18 03:29 08/05/18 03:29 Abnormal lab findings: Abnormal lab results RBC 3.23 M/mcL (4.19-5.50) L 08/05/18 03:29 Hgb 9.5 g/dL (12.9-16.9) L 08/05/18 03:29 Hct 28.2 % (37.5-50.1) L 08/05/18 03:29 Plt Count 70 K/mcL (140-400) L 08/05/18 03:29 Lymphocytes # 0.5 K/mcL (0.6-4.6) L 08/05/18 03:29 Immature Plt Fraction 6.6 % (1.1-6.1) H 08/05/18 03:29 PT 17.6 Seconds (9.4-12.1) H 08/05/18 03:29 Sodium 135 mEq/L (136-145) L 08/05/18 03:29 Glucose 119 mg/dL (70-105) H 08/05/18 03:29 POC Glucose 136 mg/dL (70-99) H 08/04/18 20:57 Magnesium 1.4 mg/dL (1.6-2.6) L 08/04/18 17:46 Total Bilirubin 0.2 mg/dL (0.3-1.0) L 08/04/18 17:46 Ur Specific [place] 1.029 (1.010-1.025) H 08/04/18 18:21 Urine Protein >=1000 mg/dL (Neg-Trace) H 08/04/18 18:21 Urine Glucose (UA) 100 mg/dL (Normal) H 08/04/18 18:21 Urine Blood Moderate (Negative) H 08/04/18 18:21 Urine Microscopic WBC 3-5 per hpf (0-3) H 08/04/18 18:21 Ur Squamous Epith Cells Many per lpf (None-Few) H 08/04/18 18:21 Phenobarbital < 1 mcg/mL (15-40) L 08/04/18 17:46
--- NOTE | 2018-08-05 16:07 | Electrocardiograph Report ---
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
--- NOTE | 2018-08-05 16:07 | Electrocardiograph Report ---
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
[2018-08-06 04:57] LABS: Hematocrit 26.1 % (37.5-50.1); Hemoglobin 8.7 g/dL (12.9-16.9); Immature Granulocytes % 0.4 % (0-4); Mean Corpuscular HGB Conc 33.3 g/dL (31.6-35.5)
[2018-08-06 04:59] LABS: Basophils % 0.4 %; Eosinophils % 0.7 %; Immature Platelets 7.4 % (1.1-6.1); Lymphocytes # 0.8 K/mcL (0.6-4.6); Lymphocytes % 27.8 %; Mean Platelet Volume 11.2 fL (9.4-12.4); Monocytes # 0.4 K/mcL (0.0-1.3); Monocytes % 14.2 %; Neutrophils # 1.6 K/mcL (1.6-8.9); Red Cell Distribution Width 13.9 % (11.5-14.5); Segmented Neutrophils % 56.5 %
[2018-08-06 05:03] LABS: Platelet Count 72 K/mcL (140-400)
[2018-08-06 05:19] LABS: BUN/Creatinine Ratio 13 (6-26); Blood Urea Nitrogen 18 mg/dL (6-20); Calcium 8.5 mg/dL (8.6-10.3); Carbon Dioxide 26 mEq/L (23-29); Chloride 109 mEq/L (98-107); Glucose 85 mg/dL (70-105); Osmolality,Calculated 289 (280-300); Potassium 3.7 mEq/L (3.5-5.1); Sodium 139 mEq/L (136-145); eGFR For Non-African Americans 58 (> 60)
[2018-08-06] MEDS: Ampicillin/Sulbactam 1,500 MG in 0.9 % Sodium Chloride Mini Bag 100 ML IVPB SCH ×4 (07:35→23:37)
[2018-08-06] MEDS: Multivit/Ca/Min/Fe/FA 1 TAB TABLET PO SCH (08:57)
[2018-08-06] MEDS: levETIRAcetam 250 MG TABLET PO SCH ×2 (08:58→21:53)
[2018-08-06] MEDS: *HR* OxyCODONE Immed Rel 5 MG TABLET PO SCH ×3 (08:58→21:55)
[2018-08-06] MEDS: Baclofen 10 MG TABLET PO SCH ×2 (08:59→21:53)
[2018-08-06] MEDS: *HR* Heparin 5,000 UNIT/ML VIAL SQ SCH (09:05)
[2018-08-06] MEDS ORDERED: *HR* Heparin 5,000 UNIT/ML VIAL IVP PRN ×2 (11:24)
[2018-08-06] MEDS ORDERED: *HR* Heparin 5,000 UNIT/ML VIAL IVP ONE (11:24)
--- NOTE | 2018-08-06 11:24 | Internal Med Progress Note ---
Hospitalist Progress Note - Encounter Date of Encounter: 08/06/18 Time of Encounter: 11:24 - Subjective Interval History: Mr Arguello is currently admitted for recurrent seizures. He has been found to have acute CVA on MRI. He remains moderate to high risk due to potential for worsening clinical status. Mr Arguello wants to go home. No fever or chills. No further seizure activity. INR low. Has acute CVA on MRI. Started on heparin drip today. No GI issues. No CP or SOB. - Exam Vitals: Temp Pulse Resp BP Pulse Ox 98.7 F 100 18 129/94 98 08/06/18 08:12 08/06/18 08:12 08/06/18 08:12 08/06/18 08:12 08/06/18 08:12 Exam: General: Alert and oriented. Comfortable at this time. Answers questions. Skin: Normal color, no rash, no lesions. H: Normocephalic. EENT: EOMI. Mucus membranes moist. No lesion. Cardiovascular: Normal S1 & S2, no rubs, murmurs or gallops. No JVD. Pulse regular. Not tachycardic Lungs: Normal breath sounds, no wheezes or crackles. Abdomen: Soft, non-tender, no rigidity. Normal bowel sounds. Extremities: No deformity, no edema or tenderness, no joint swelling or clubbing. Neurological: Moves all extremities Pulses: Carotid and radial pulses normal +2. Rest of the physical exam is non contributory - Assessment and Plan (1) CVA (cerebral vascular accident) Current Visit: Yes Status: Acute Assessment and Plan: Pt has new acute/subacute CVA on MRI. His INR has been low and he has hx of hypercoagulable state. He has been started on IV heparin until his INR increases. Considering heme consult - not sure if he can be on a different agent that does not require monitoring. PT/OT consulted. ASA started. Appreciate neuro input. (2) Tachycardia Current Visit: No Status: Resolved Assessment and Plan: -Improved today. (3) Antiphospholipid syndrome Current Visit: Yes Status: Acute Assessment and Plan: -INR has been low - has CVA on MRI. Heparin ordered IV. - (4) DAVID (acute kidney injury) Current Visit: Yes Status: Acute Assessment and Plan: -Creatinine up again today. Following; (5) Hypertension Current Visit: Yes Status: Acute Assessment and Plan: -BP up and down. Keep permissive HTN at this time. (6) PNA (pneumonia) Current Visit: Yes Status: Suspected Assessment and Plan: -CXR: Reticular opacities predominantly involving the right lung, new since 07/04/2018. Differential considerations include atypical infection or asymmetric edema. -Currently on IV Unasyn. (7) Tobacco abuse Current Visit: No Status: Chronic Assessment and Plan: Chronic issue (8) Anemia Current Visit: No Status: Suspected Assessment and Plan: Pt has had significant anemia in last 2-3 months. No overt bleeding noted but is on anticoagulation. Will need further work up in the future. (9) Seizure disorder Current Visit: Yes Status: Acute Assessment and Plan: No further seizures at this time. (10) Thrombocytopenic Current Visit: No Status: Acute Assessment and Plan: Platelets continue to decrease. Pt now on heparin drip. Will check again tomorrow. May need to hold meds and ask heme for assistance. - Time Spent with Patient Total time spent is greater than 50% in coordination of care (as documented) at patient's floor/unit and/or counseling patient: Internal Medicine: Result - Labs CBC & Chem 7: 08/06/18 12:06 08/06/18 04:41 Labs: Short CBC 08/06/18 Range/Units 04:41 WBC 2.8 L (4.3-11.1) K/mcL Hgb 8.7 L (12.9-16.9) g/dL Hct 26.1 L (37.5-50.1) % Plt Count 72 L (140-400) K/mcL Neutrophils # 1.6 (1.6-8.9) K/mcL BMP 08/06/18 04:41 Sodium 139 Potassium 3.7 Chloride 109 H Carbon Dioxide 26 BUN 18 Creatinine 1.38 H Glucose 85 Calcium 8.5 L - ABG Interpretation ABG results: PT/INR, D-dimer PT 17.6 Seconds (9.4-12.1) H 08/05/18 03:29 - Impressions Impressions Brain MRI 08/06/18 10:57 IMPRESSION: Small lesion in the right temporal lobe, possibly an acute or subacute infarct. Chronic severe frontoparietal brain atrophy and multiple areas of encephalomalacia. D/ / 08/06/2018 10:19:11 Tirso Terry MD / Lyndsey Dale Interpreting Provider: Tirso Terry MD - VTE Documentation of Mechanical Device: Graduated compression elastic hosiery Consult Discharge Plan - Plan Referrals: NONE,PCP [Primary Care Provider] - (1) CVA (cerebral vascular accident) Qualifiers: CVA mechanism: thrombosis Precerebral and cerebral artery: middle cerebral artery Laterality of affected vessel: right Qualified Code(s): I63.311 - Cerebral infarction due to thrombosis of right middle cerebral artery (5) Hypertension Qualifiers: Hypertension type: essential hypertension Qualified Code(s): I10 - Essential (primary) hypertension (6) PNA (pneumonia) Qualifiers: Pneumonia type: aspiration pneumonia Aspiration pneumonia type: due to gastric secretions Laterality: right Lung location: middle lobe of lung Qualified Code(s): J69.0 - Pneumonitis due to inhalation of food and vomit (8) Anemia Qualifiers: Anemia type: other cause Other causes of anemia: chronic disease, other Qualified Code(s): D63.8 - Anemia in other chronic diseases classified elsewhere
[2018-08-06 12:21] LABS: Mean Corpuscular HGB Conc 33.4 g/dL (31.6-35.5); Red Cell Distribution Width 13.8 % (11.5-14.5)
[2018-08-06 12:23] LABS: Hematocrit 30.8 % (37.5-50.1); Hemoglobin 10.3 g/dL (12.9-16.9); Mean Corpuscular Hemoglobin 29.3 pg (28.0-33.3); Mean Corpuscular Volume 87.7 fL (83.0-100.0); Mean Platelet Volume 11.5 fL (9.4-12.4); Red Blood Count 3.51 M/mcL (4.19-5.50)
[2018-08-06] MEDS: Aspirin Enteric Coated 81 MG Tablet PO SCH (12:30)
[2018-08-06] MEDS: Heparin 25,000 UNIT/500 ML D5W 25,000 UNIT/500 ML BAG IVC SCH (12:31)
[2018-08-06 12:33] LABS: INR 1.6; Prothrombin Time 18.3 Seconds (9.4-12.1)
--- NOTE | 2018-08-06 16:47 | Neurology Progress Note ---
Date of Encounter: 08/06/18 Time of Encounter: 16:42 Assessment and Plan (1) Seizure Current Visit: Yes Status: Chronic Patient has had an acute infarct in the right temporal lobe. Certainly this could be an etiology that might explain the most recent seizure activity. In any regard I will defer anticoagulation strategies to the filling station laborer. Certainly the antiphospholipid antibody syndrome has resulted in multiple strokes compromising this patient's cognitive functions and motor functions. Perhaps they have hematology oncology may be able to offer some assistance. otherwise I recommend mantaining levetiracetam 1000 mg twice a day. Subjective Interval history: The chart was reviewed, patient was seen and examined. No further seizure activities reported. MRI scan of the brain does reveal what appears to be a subacute infarct in the right temporal lobe. The Keppra level is still pending. Neurologically he is stable. Objective - Constitutional Vitals: Temp Pulse Resp BP Pulse Ox 98.8 F 90 18 145/99 97 08/06/18 15:09 08/06/18 15:09 08/06/18 15:09 08/06/18 15:09 08/06/18 15:09 - Neurological Exam Sensorimotor examination: Present: intact, seizure Motor examination - left side: 5/5: deltoids, biceps, triceps, wrist flexion, wrist extension, hip flexors, machine leather trimmer, quadriceps, tibialis Anterior, toe extension (EHL), plantarflexion Sensation intact: Present: other (Unable to do due to patient's mental status) Reflex and gait examination: other (Unable to do due to patient's mental status) Mental Status Examination: Present: oriented to place (Patient knows that he is in [facility]. However he is not a good historian and has obvious cognitive deficiencies.), follows commands appropriately Cranial nerve examination: Present: sensory to face intact - VTE Documentation of Mechanical Device: Graduated compression elastic hosiery Results - Laboratory Findings CBC and BMP: 08/06/18 12:06 08/06/18 04:41 Abnormal lab findings: Abnormal lab results WBC 3.5 K/mcL (4.3-11.1) L 08/06/18 12:06 RBC 3.51 M/mcL (4.19-5.50) L 08/06/18 12:06 Hgb 10.3 g/dL (12.9-16.9) L D 08/06/18 12:06 Hct 30.8 % (37.5-50.1) L 08/06/18 12:06 Plt Count 70 K/mcL (140-400) L 08/06/18 12:06 Immature Plt Fraction 7.0 % (1.1-6.1) H 08/06/18 12:06 PT 18.3 Seconds (9.4-12.1) H 08/06/18 12:06 Heparin Anti-Xa, Unfract 0.05 IU/mL (0.30-0.70) L 08/06/18 12:06 Chloride 109 mEq/L (98-107) H 08/06/18 04:41 Creatinine 1.38 mg/dL (0.70-1.30) H 08/06/18 04:41 Est GFR (Non-Af Amer) 58 (> 60) L 08/06/18 04:41 POC Glucose 136 mg/dL (70-99) H 08/04/18 20:57 Calcium 8.5 mg/dL (8.6-10.3) L 08/06/18 04:41 Magnesium 1.4 mg/dL (1.6-2.6) L 08/04/18 17:46 Total Bilirubin 0.2 mg/dL (0.3-1.0) L 08/04/18 17:46 Ur Specific [place] 1.029 (1.010-1.025) H 08/04/18 18:21 Urine Protein >=1000 mg/dL (Neg-Trace) H 08/04/18 18:21 Urine Glucose (UA) 100 mg/dL (Normal) H 08/04/18 18:21 Urine Blood Moderate (Negative) H 08/04/18 18:21 Urine Microscopic WBC 3-5 per hpf (0-3) H 08/04/18 18:21 Ur Squamous Epith Cells Many per lpf (None-Few) H 08/04/18 18:21 Phenobarbital < 1 mcg/mL (15-40) L 08/04/18 17:46 Consult Discharge Plan - Plan Referrals: NONE,PCP [Primary Care Provider] -
[2018-08-06] MEDS ORDERED: *HR* Warfarin 3 MG TABLET PO ONE (18:00)
[2018-08-06] MEDS ORDERED: Warfarin perPT PO PRN (18:00)
[2018-08-07] MEDS ORDERED: *HR* Metoprolol 5 MG/5 ML VIAL IVP ONE (03:49)
[2018-08-07 04:54] LABS: Basophils % 0.3 %; Hematocrit 27.6 % (37.5-50.1); Immature Granulocytes % 0.3 % (0-4); Red Cell Distribution Width 13.7 % (11.5-14.5)
[2018-08-07 04:55] LABS: Eosinophils % 0.9 %; Hemoglobin 9.3 g/dL (12.9-16.9); Immature Platelets 6.7 % (1.1-6.1); Lymphocytes # 0.8 K/mcL (0.6-4.6); Lymphocytes % 23.6 %; Mean Corpuscular HGB Conc 33.7 g/dL (31.6-35.5); Mean Platelet Volume 11.3 fL (9.4-12.4); Monocytes # 0.4 K/mcL (0.0-1.3); Monocytes % 12.9 %; Red Blood Count 3.21 M/mcL (4.19-5.50)
[2018-08-07 04:57] LABS: INR 1.6; Prothrombin Time 17.8 Seconds (9.4-12.1)
[2018-08-07 04:58] LABS: Neutrophils # 2.1 K/mcL (1.6-8.9); Platelet Count 88 K/mcL (140-400)
[2018-08-07 05:11] LABS: % Iron Saturation 18 % (20-55); Iron 44 mcg/dL (65-175); Transferrin 170 mg/dL (203-362)
[2018-08-07 05:13] LABS: Alanine Aminotransferase 9 Units/L (7-52); Albumin 3.9 g/dL (3.5-5.7); Albumin/Globulin Ratio 1.6 (1.1-2.2); Alkaline Phosphatase 74 Units/L (34-104); Aspartate Amino Transferase 16 Units/L (13-39); BUN/Creatinine Ratio 12 (6-26); Bilirubin,Total 0.4 mg/dL (0.3-1.0); Blood Urea Nitrogen 15 mg/dL (6-20); Carbon Dioxide 22 mEq/L (23-29); Chloride 104 mEq/L (98-107); Chol/HDL Ratio 5.3 (0-4.9); Cholesterol 184 mg/dL (< 200); Globulin 2.5 g/dL (2.4-3.5); Glucose 88 mg/dL (70-105); HDL Cholesterol 35 mg/dL (40-59); LDL Cholesterol,Calculated 109 mg/dL (0-99); Osmolality,Calculated 286 (280-300); Potassium 3.5 mEq/L (3.5-5.1); Sodium 138 mEq/L (136-145); Total Protein 6.4 g/dL (6.4-8.9); Triglycerides 201 mg/dL (< 150); eGFR For Non-African Americans > 60 (> 60)
[2018-08-07] MEDS ORDERED: Piperacillin/Tazobactam 3.375 GM in 0.9 % Sodium Chloride Mini Bag 100 ML IVPB SCH (06:00)
[2018-08-07] MEDS ORDERED: Aminoglycoside Consult 1 EACH MC ONE (07:28)
--- NOTE | 2018-08-07 08:07 | Internal Med Progress Note ---
Hospitalist Progress Note - Encounter Date of Encounter: 08/07/18 Time of Encounter: 09:57 - Subjective Interval History: Mr Arguello is currently admitted for recurrent seizures. He has been found to have acute CVA on MRI. He remains moderate to high risk due to potential for worsening clinical status. Mr Arguello more awake and interactive today. No fever or chills. Understands that he needs to be on heparin till his INR is increased. Less cough now. No CP or GI issues. Had increased pain and dyspnea during the night and abx changed. MEWS elevated. CXR negative at that time. - Exam Vitals: Temp Pulse Resp BP Pulse Ox 96 F L 91 20 150/102 94 08/07/18 06:51 08/07/18 06:51 08/07/18 06:51 08/07/18 06:51 08/07/18 06:51 Exam: General: Alert and oriented. Comfortable at this time. Answers questions. Skin: Normal color, no rash H: Normocephalic. EENT: EOMI. Mucus membranes moist. No lesion. Cardiovascular: Normal S1 & S2, no rubs, murmurs or gallops. No JVD. Pulse regular. Not tachy at this time. Lungs: Decreased breath sounds on R. No wheeze noted. Abdomen: Soft, non-tender, no rigidity. Normal bowel sounds. Extremities: No deformity, no edema or tenderness, no joint swelling or clubbing. Neurological: Moves all extremities Pulses: Carotid and radial pulses normal +2. Rest of the physical exam is non contributory - Assessment and Plan (1) CVA (cerebral vascular accident) Current Visit: Yes Status: Acute Assessment and Plan: Pt has new acute/subacute CVA on MRI. His INR has been low and he has hx of hypercoagulable state. He has been started on IV heparin until his INR increases. Considering heme consult - not sure if he can be on a different agent that does not require monitoring. INR still 1.6. Platelets better at 80K. Continue heparin/coumadin. Increase activity. (2) Antiphospholipid syndrome Current Visit: Yes Status: Acute Assessment and Plan: -INR has been low - has CVA on MRI. Heparin ordered IV. - INR still 1.6 today. Needs to be at least 2.5 (3) DAVID (acute kidney injury) Current Visit: Yes Status: Resolved Assessment and Plan: -Resolved today. (4) Hypertension Current Visit: Yes Status: Acute Assessment and Plan: -BP more elevated today. Will give low dose antihypertensive and gradually bring down. (5) PNA (pneumonia) Current Visit: Yes Status: Suspected Assessment and Plan: -CXR: Reticular opacities predominantly involving the right lung, new since 07/04/2018. Differential considerations include atypical infection or asymmetric edema. - Abx changed this AM due to increased MEWS. CXR negative. Will change back to Unasyn and complete 7 days total of abx. (6) Tobacco abuse Current Visit: No Status: Chronic Assessment and Plan: Chronic issue Cessation counselling. (7) Anemia Current Visit: No Status: Suspected Assessment and Plan: Iron studies consistent with chronic disease. Should have further outpatient work up. (8) Seizure disorder Current Visit: Yes Status: Chronic Assessment and Plan: No further seizures at this time. (9) Thrombocytopenic Current Visit: No Status: Acute Assessment and Plan: Platelets better today. Continue to monitor in light of ASA and anticoagulation. DVT Prophylaxis: Currently on heparin drip and coumadin. - Time Spent with Patient Total time spent is greater than 50% in coordination of care (as documented) at patient's floor/unit and/or counseling patient: Internal Medicine: Result - Labs CBC & Chem 7: 08/07/18 04:32 08/07/18 04:32 Labs: Short CBC 08/06/18 08/07/18 Range/Units 12:06 04:32 WBC 3.5 L 3.3 L (4.3-11.1) K/mcL Hgb 10.3 L D 9.3 L (12.9-16.9) g/dL Hct 30.8 L 27.6 L (37.5-50.1) % Plt Count 70 L 88 L (140-400) K/mcL Neutrophils # 2.1 (1.6-8.9) K/mcL BMP 08/07/18 04:32 Sodium 138 Potassium 3.5 Chloride 104 Carbon Dioxide 22 L BUN 15 Creatinine 1.28 Glucose 88 Calcium 9.0 Liver Function 08/07/18 Range/Units 04:32 Total Bilirubin 0.4 (0.3-1.0) mg/dL AST 16 (13-39) Units/L ALT 9 (7-52) Units/L Alkaline Phosphatase 74 (34-104) Units/L Albumin 3.9 (3.5-5.7) g/dL - ABG Interpretation ABG results: PT/INR, D-dimer PT 17.8 Seconds (9.4-12.1) H 08/07/18 04:32 - Impressions Impressions Brain MRI 08/06/18 10:57 IMPRESSION: Small lesion in the right temporal lobe, possibly an acute or subacute infarct. Chronic severe frontoparietal brain atrophy and multiple areas of encephalomalacia. D/ / 08/06/2018 10:19:11 Tirso Terry MD / Lyndsey Dale Interpreting Provider: Tirso Terry MD Chest X-Ray 08/07/18 03:49 IMPRESSION: Clear lungs. D/ / Hebert Stewart MD / Hebert Stewart MD Interpreting Provider: Hebert Stewart MD - VTE Documentation of Mechanical Device: Graduated compression elastic hosiery Consult Discharge Plan - Plan Referrals: NONE,PCP [Primary Care Provider] - (1) CVA (cerebral vascular accident) Qualifiers: CVA mechanism: thrombosis Precerebral and cerebral artery: middle cerebral artery Laterality of affected vessel: right Qualified Code(s): I63.311 - Cereb ral infarction due to thrombosis of right middle cerebral artery (4) Hypertension Qualifiers: Hypertension type: essential hypertension Qualified Code(s): I10 - Essential (primary) hypertension (5) PNA (pneumonia) Qualifiers: Pneumonia type: aspiration pneumonia Aspiration pneumonia type: due to gastric secretions Laterality: right Lung location: middle lobe of lung Qualified Code(s): J69.0 - Pneumonitis due to inhalation of food and vomit (7) Anemia Qualifiers: Anemia type: other cause Other causes of anemia: chronic disease, other Qualified Code(s): D63.8 - Anemia in other chronic diseases classified elsewhere
[2018-08-07] MEDS: Baclofen 10 MG TABLET PO SCH ×2 (09:01→21:24)
[2018-08-07] MEDS: Multivit/Ca/Min/Fe/FA 1 TAB TABLET PO SCH (09:01)
[2018-08-07] MEDS: levETIRAcetam 250 MG TABLET PO SCH ×2 (09:01→21:24)
[2018-08-07] MEDS: Aspirin Enteric Coated 81 MG Tablet PO SCH (09:03)
[2018-08-07] MEDS: *HR* OxyCODONE Immed Rel 5 MG TABLET PO SCH ×3 (09:06→21:23)
[2018-08-07 10:25] LABS: Estimated Average Glucose 108 mg/dl; Hemoglobin A1C 5.4 %
[2018-08-07] MEDS: Ampicillin/Sulbactam 3,000 MG in 0.9 % Sodium Chloride Mini Bag 100 ML IVPB SCH ×2 (14:20→18:23)
[2018-08-07] MEDS: Heparin 25,000 UNIT/500 ML D5W 25,000 UNIT/500 ML BAG IVC SCH (14:33)
[2018-08-07] MEDS ORDERED: *HR* Warfarin 2 MG TABLET PO ONE (18:00)
[2018-08-08] MEDS: Ampicillin/Sulbactam 3,000 MG in 0.9 % Sodium Chloride Mini Bag 100 ML IVPB SCH ×4 (01:20→18:45)
[2018-08-08 04:22] LABS: Hematocrit 27.3 % (37.5-50.1); Hemoglobin 9.2 g/dL (12.9-16.9); Mean Corpuscular HGB Conc 33.7 g/dL (31.6-35.5); Mean Corpuscular Hemoglobin 29.1 pg (28.0-33.3); Mean Corpuscular Volume 86.4 fL (83.0-100.0); Mean Platelet Volume 11.2 fL (9.4-12.4); Platelet Count 101 K/mcL (140-400); Red Blood Count 3.16 M/mcL (4.19-5.50); Red Cell Distribution Width 13.5 % (11.5-14.5)
[2018-08-08 04:30] LABS: INR 1.6; Prothrombin Time 17.7 Seconds (9.4-12.1)
[2018-08-08 04:35] LABS: BUN/Creatinine Ratio 11 (6-26); Blood Urea Nitrogen 15 mg/dL (6-20); Calcium 8.5 mg/dL (8.6-10.3); Carbon Dioxide 23 mEq/L (23-29); Chloride 108 mEq/L (98-107); Glucose 91 mg/dL (70-105); Osmolality,Calculated 282 (280-300); Potassium 3.3 mEq/L (3.5-5.1); Sodium 136 mEq/L (136-145); eGFR For Non-African Americans > 60 (> 60)
--- NOTE | 2018-08-08 08:12 | Neurology Progress Note ---
Date of Encounter: 08/08/18 Time of Encounter: 08:10 Assessment and Plan (1) Seizure Current Visit: Yes Status: Chronic Patient's seizure disorder at this time seems to be stable. He is had a recent subacute infarct in the right temporal region. This is due to his predisposition for strokes as result of the antiphospholipid antibody syndrome. Unfortunately he will need lifelong anticoagulation. I maintained levetiracetam at 1000 mg twice a day. I will reevaluate him at your request. Subjective Interval history: The chart was reviewed, patient was seen and examined. No further seizure episodes of been identified. Patient now is back to his normal baseline. Still has some residual weakness of the left upper extremity. Patient is anxious for discharge. Objective - Constitutional Vitals: Temp Pulse Resp BP Pulse Ox 98.4 F 82 17 157/101 97 08/08/18 04:53 08/08/18 06:40 08/08/18 06:40 08/08/18 06:40 08/08/18 06:40 - Neurological Exam Sensorimotor examination: Present: intact, seizure Motor examination - right side: 5/5: deltoids, biceps, triceps, field operations farm manager, hip flexors, tibialis Anterior, quadriceps, toe extension (EHL), plantarflexion Motor examination - left side: 4/5: deltoids, biceps, triceps, hip flexors, g rip, quadriceps, tibialis Anterior, toe extension (EHL), plantarflexion, 5/5: wrist flexion, wrist extension Sensation intact: Present: other (Unable to do due to patient's mental status) Reflex and gait examination: other (Unable to do due to patient's mental status) Mental Status Examination: Present: oriented to place (Patient knows that he is in [facility]. However he is not a good historian and has obvious cognitive deficiencies.), follows commands appropriately Cranial nerve examination: Present: PERRL, EOMI, sensory to face intact - VTE Documentation of Mechanical Device: Graduated compression elastic hosiery Results - Laboratory Findings CBC and BMP: 08/08/18 04:05 08/08/18 04:05 Abnormal lab findings: Abnormal lab results WBC 2.7 K/mcL (4.3-11.1) L 08/08/18 04:05 RBC 3.16 M/mcL (4.19-5.50) L 08/08/18 04:05 Hgb 9.2 g/dL (12.9-16.9) L 08/08/18 04:05 Hct 27.3 % (37.5-50.1) L 08/08/18 04:05 Plt Count 101 K/mcL (140-400) L 08/08/18 04:05 Immature Plt Fraction 6.7 % (1.1-6.1) H 08/07/18 04:32 PT 17.7 Seconds (9.4-12.1) H 08/08/18 04:05 Potassium 3.3 mEq/L (3.5-5.1) L 08/08/18 04:05 Chloride 108 mEq/L (98-107) H 08/08/18 04:05 Creatinine 1.31 mg/dL (0.70-1.30) H 08/08/18 04:05 POC Glucose 112 mg/dL (70-99) H 08/07/18 11:22 Calcium 8.5 mg/dL (8.6-10.3) L 08/08/18 04:05 Magnesium 1.4 mg/dL (1.6-2.6) L 08/04/18 17:46 Iron 44 mcg/dL (65-175) L 08/07/18 04:32 % Saturation 18 % (20-55) L 08/07/18 04:32 Transferrin 170 mg/dL (203-362) L 08/07/18 04:32 Triglycerides 201 mg/dL (< 150) H 08/07/18 04:32 LDL Cholesterol, Calc 109 mg/dL (0-99) H 08/07/18 04:32 VLDL Cholesterol, Calc 40 mg/dL (< 31) H 08/07/18 04:32 HDL Cholesterol 35 mg/dL (40-59) L 08/07/18 04:32 Cholesterol/HDL Ratio 5.3 (0-4.9) H 08/07/18 04:32 Ur Specific [place] 1.029 (1.010-1.025) H 08/04/18 18:21 Urine Protein >=1000 mg/dL (Neg-Trace) H 08/04/18 18:21 Urine Glucose (UA) 100 mg/dL (Normal) H 08/04/18 18:21 Urine Blood Moderate (Negative) H 08/04/18 18:21 Urine Microscopic WBC 3-5 per hpf (0-3) H 08/04/18 18:21 Ur Squamous Epith Cells Many per lpf (None-Few) H 08/04/18 18:21 Phenobarbital < 1 mcg/mL (15-40) L 08/04/18 17:46 Consult Discharge Plan - Plan Referrals: NONE,PCP [Primary Care Provider] -
--- NOTE | 2018-08-08 08:59 | Internal Med Progress Note ---
<Kuldeep Jones - Last Filed: 08/08/18 13:11> Hospitalist Progress Note - Exam Vitals: Temp Pulse Resp BP Pulse Ox 98.3 F 89 17 133/91 97 08/08/18 11:37 08/08/18 11:37 08/08/18 06:40 08/08/18 11:37 08/08/18 06:40 - Assessment and Plan (1) Anemia Current Visit: No Status: Suspected (2) Tobacco abuse Current Visit: No Status: Chronic (3) Thrombocytopenic Current Visit: No Status: Acute (4) Antiphospholipid syndrome Current Visit: Yes Status: Chronic (5) DAVID (acute kidney injury) Current Visit: Yes Status: Resolved (6) Hypertension Current Visit: Yes Status: Chronic (7) PNA (pneumonia) Current Visit: Yes Status: Suspected (8) Seizure disorder Current Visit: Yes Status: Chronic (9) CVA (cerebral vascular accident) Current Visit: Yes Status: Acute - Time Spent with Patient Total time spent is greater than 50% in coordination of care (as documented) at patient's floor/unit and/or counseling patient: my time 35min Internal Medicine: Result - Labs CBC & Chem 7: 08/08/18 04:05 08/08/18 04:05 Labs: Short CBC 08/08/18 Range/Units 04:05 WBC 2.7 L (4.3-11.1) K/mcL Hgb 9.2 L (12.9-16.9) g/dL Hct 27.3 L (37.5-50.1) % Plt Count 101 L (140-400) K/mcL BMP 08/08/18 04:05 Sodium 136 Potassium 3.3 L Chloride 108 H Carbon Dioxide 23 BUN 15 Creatinine 1.31 H Glucose 91 Calcium 8.5 L - ABG Interpretation ABG results: PT/INR, D-dimer PT 17.7 Seconds (9.4-12.1) H 08/08/18 04:05 Consult Discharge Plan - Plan Referrals: NONE,PCP [Primary Care Provider] - Prescriptions: Enoxaparin [Lovenox] 60 mg SQ Q12HR #14 syr - Attending Attestation I examined this patient and my medical decision-making was reviewed with the Resident Physician on 08/07/18. I agree with the documented findings, disposition and treatment plan as described except to the extent set forth below. Mr Arguello is currently admitted for seizure and acute CVA. He remains moderate to high risk due to potential for worsening clinical status. Mr Arguello feels OK. He wants to go home. INR is still low. Remains on heparin drip. No CP or SOB. Neurologically improved. Exam alert Comfortable Mucus membranes dry Heart reg No wheeze Abd soft No edema I/P 1. CVA - increase INR to at least 2.5 2. Anticardiolipin syndrome 3. Seizure disorder Checking to see if would be eligible for Lovenox bridge and can do it. Further diagnoses and plan as above. <José Miguel Shannon - Last Filed: 08/08/18 15:11> Hospitalist Progress Note - Encounter Date of Encounter: 08/08/18 Time of Encounter: 08:35 - Subjective Interval History: Sitting up in bed and conversing today. States he would like to go home today and neuro said he could and feels much better. He has no complaints today. - Exam Vitals: Temp Pulse Resp BP Pulse Ox 98.4 F 82 17 157/101 97 08/08/18 04:53 08/08/18 06:40 08/08/18 06:40 08/08/18 06:40 08/08/18 06:40 Exam: General: Awake, alert, no signs of acute distress or toxicity. Head: Atraumatic, normocephalic ENT: EOMi, pupils equal and round Neck: supple, trachea midline Chest: Symmetric chest rise, non tender Cardiovascular: RRR, +S1/S2, no murmurs, rubs, heaves, thrills appreciated, no edema, radial pulse 2+ bilat Respiratory: Normal resp effort, CTAB, no wheezes, rhonci, rales appreciated. Abdomen: Soft, non tender, non distended, no guarding, rigidity Extremities: [place], warm, dry, intact - Assessment and Plan (1) CVA (cerebral vascular accident) Current Visit: Yes Status: Acute Assessment and Plan: -New acute/subacute CVA on MRI. -His INR has been low and he has hx of hypercoagulable state. -He has been started on IV heparin until his INR increases. -INR still 1.6. Platelets better at 101K. -Neuro ok to dc. -Continue heparin/warfarin till INR 2.5 -Likely dc tomorrow with enoxaparin bridge and warfarin along with continued asa. (2) Seizure disorder Current Visit: Yes Status: Chronic Assessment and Plan: No further seizures at this time. (3) PNA (pneumonia) Current Visit: Yes Status: Suspected Assessment and Plan: -CXR: Reticular opacities predominantly involving the right lung, new since 07/04/2018. Differential considerations include atypical infection or asymmetric edema. -CXR negative. -Continue unasyn (day 4 of 6) and complete 7 days total of abx. (4) Antiphospholipid syndrome Current Visit: Yes Status: Chronic Assessment and Plan: -INR has been low since admission - Has subacute CVA on MRI -Heparin infusion currently -INR still 1.6 today. Needs to be at least 2.5, warafrin restarted. (5) Anemia Current Visit: No Status: Suspected Assessment and Plan: Hgb 9.2 and stable. Iron studies consistent with chronic disease. Should have further outpatient work up. (6) Thrombocytopenic Current Visit: No Status: Acute Assessment and Plan: Platelets better today. 101 up from 70. Continue to monitor in light of ASA and anticoagulation. (7) DAVID (acute kidney injury) Current Visit: Yes Status: Resolved Assessment and Plan: -Resolved. (8) Hypertension Current Visit: Yes Status: Chronic Assessment and Plan: -BP more elevated today. 157/101 most recent. -Continue carvedilol. (9) Tobacco abuse Current Visit: No Status: Chronic Assessment and Plan: Chronic issue Recommend cessation counselling at dc. DVT Prophylaxis: Currently on heparin drip and coumadin. - Time Spent with Patient Total time spent is greater than 50% in coordination of care (as documented) at patient's floor/unit and/or counseling patient: less than 15 minutes Plan of Care Discussed with: patient Internal Medicine: Result - Labs CBC & Chem 7: 08/08/18 04:05 08/08/18 04:05 Labs: Short CBC 08/08/18 Range/Units 04:05 WBC 2.7 L (4.3-11.1) K/mcL Hgb 9.2 L (12.9-16.9) g/dL Hct 27.3 L (37.5-50.1) % Plt Count 101 L (140-400) K/mcL [facility] 08/08/18 04:05 Sodium 136 Potassium 3.3 L Chloride 108 H Carbon Dioxide 23 BUN 15 Creatinine 1.31 H Glucose 91 Calcium 8.5 L - ABG Interpretation ABG results: PT/INR, D-dimer PT 17.7 Seconds (9.4-12.1) H 08/08/18 04:05 - VTE Documentation of Mechanical Device: Graduated compression elastic hosiery <Kuldeep Jones - Last Filed: 08/08/18 13:11> (1) Anemia Qualifiers: Anemia type: other cause Other causes of anemia: chronic disease, other Qualified Code(s): D63.8 - Anemia in other chronic diseases classified elsewhere (6) Hypertension Qualifiers: Hypertension type: essential hypertension Qualified Code(s): I10 - Essential (primary) hypertension (7) PNA (pneumonia) Qualifiers: Pneumonia type: aspiration pneumonia Aspiration pneumonia type: due to gastric secretions Laterality: right Lung location: middle lobe of lung Qualified Code(s): J69.0 - Pneumonitis due to inhalation of food and vomit (9) CVA (cerebral vascular accident) Qualifiers: CVA mechanism: thrombosis Precerebral and cerebral artery: middle cerebral artery Laterality of affected vessel: right Qualified Code(s): I63.311 - Cerebral infarction due to thrombosis of right middle cerebral artery <José Miguel Shannon - Last Filed: 08/08/18 15:11> (1) CVA (cerebral vascular accident) Qualifiers: CVA mechanism: thrombosis Precerebral and cerebral artery: middle cerebral artery Laterality of affected vessel: right Qualified Code(s): I63.311 - Cerebral infarction due to thrombosis of right middle cerebral artery (3) PNA (pneumonia) Qualifiers: Pneumonia type: aspiration pneumonia Aspiration pneumonia type: due to gastric secretions Laterality: right Lung location: middle lobe of lung Qualified Code(s): J69.0 - Pneumonitis due to inhalation of food and vomit (5) Anemia Qualifiers: Anemia type: other cause Other causes of anemia: chronic disease, other Qualified Code(s): D63.8 - Anemia in other chronic diseases classified elsewhere (8) Hypertension Qualifiers: Hypertension type: essential hypertension Qualified Code(s): I10 - Essential (primary) hypertension
[2018-08-08] MEDS: Multivit/Ca/Min/Fe/FA 1 TAB TABLET PO SCH (10:10)
[2018-08-08] MEDS: levETIRAcetam 250 MG TABLET PO SCH ×2 (10:11→20:23)
[2018-08-08] MEDS: *HR* OxyCODONE Immed Rel 5 MG TABLET PO SCH ×3 (10:11→20:22)
[2018-08-08] MEDS: Baclofen 10 MG TABLET PO SCH ×2 (10:12→20:22)
[2018-08-08] MEDS: Aspirin Enteric Coated 81 MG Tablet PO SCH (10:12)
[2018-08-08] MEDS: Heparin 25,000 UNIT/500 ML D5W 25,000 UNIT/500 ML BAG IVC SCH (15:48)
[2018-08-08] MEDS ORDERED: *HR* Warfarin 5 MG TABLET PO ONE (18:00)
[2018-08-08] MEDS ORDERED: *HR* Warfarin 3 MG TABLET PO STA (20:54)
[2018-08-08] MEDS ORDERED: *HR* Enoxaparin 30 MG/0.3 ML SYRINGE SQ SCH (21:00)
[2018-08-08] MEDS ORDERED: Insulin LISPRO 300 UNITS/3 ML VIAL SQ ONE (21:53)
[2018-08-09] MEDS: Ampicillin/Sulbactam 3,000 MG in 0.9 % Sodium Chloride Mini Bag 100 ML IVPB SCH ×3 (01:38→11:21)
[2018-08-09] MEDS ORDERED: *HR* Enoxaparin 60 MG/0.6 ML SYRINGE SQ SCH (06:00)
--- NOTE | 2018-08-09 07:25 | Discharge Summary ---
<José Miguel Shannon - Last Filed: 08/09/18 11:47> - NOTES TO OUTPATIENT PROVIDER Notes to Outpatient Provider: Admitted with seizure activity, new CVA found on MRI brain without focal deficits, and pneumonia. INR was 1.6, urine drug screen was < 1 for phenobarbitol so it is unclear if he was taking his home meds as prescribed. With his antiphospholipid syndrome in the setting of multiple CVA's his INR goal needs to be 2.5-3.5. He is being bridged at dc with lovenox and following up with warfarin clinic in 2-3 days. He received 1 day vanc/zosyn and transitioned to unasyn for 5 additional days. He sent home with 1 day of augmentin to complete 7 total days abx. He will need much closer monitoring of INR after dc to remain at goal. Lastly, he has been pancytopenic and recommend HIV test at PCP followup. Orders not resulted at time of discharge: Pending orders 08/07/18 05:55 Culture,Blood [BC] Stat 08/09/18 04:00 BMP [Basic Metabolic Panel] AM 0400 Complete Blood Count [HEME] AM 0400 Magnesium AM 0400 PT/INR [Prothrombin Time INR] [COAG] AM 0400 Phosphorous AM 0400 08/10/18 04:00 PT/INR [Prothrombin Time INR] [COAG] AM 0400 PT/INR [Prothrombin Time INR] [COAG] AM 0400 08/11/18 04:00 PT/INR [Prothrombin Time INR] [COAG] AM 0400 PT/INR [Prothrombin Time INR] [COAG] AM 0400 Date of Encounter: 08/09/18 Time of Encounter: 08:00 - Discharge Diagnosis (1) Seizure disorder Priority: Secondary Status: Chronic Assessment and Plan: No further seizures at this time. Will need fu with Dr Carrasco after dc. (2) PNA (pneumonia) Priority: Secondary Status: Suspected Assessment and Plan: -CXR: Reticular opacities predominantly involving the right lung, new since 07/04/2018. Differential considerations include atypical infection or asymmetric edema. -CXR negative. -Continue unasyn (day 5 of 6) and complete 7 days total of abx. Qualifiers: Pneumonia type: aspiration pneumonia Aspiration pneumonia type: due to gastric secretions Laterality: right Lung location: middle lobe of lung Qualified Code(s): J69.0 - Pneumonitis due to inhalation of food and vomit (3) Antiphospholipid syndrome Priority: Secondary Status: Chronic Assessment and Plan: -INR has been low since admission - Has subacute CVA on MRI -Heparin infusion currently -INR 1.6 today. Needs to be at least 2.5, warfarin restarted. -Will bridge with lovanox and will need much closer monitoring of INR with warfarin clinic at [place]. (4) Anemia Priority: Secondary Status: Suspected Assessment and Plan: Hgb 10.1 and stable. Iron studies consistent with chronic disease. Should have further outpatient work up. Qualifiers: Anemia type: other cause Other causes of anemia: chronic disease, other Qualified Code(s): D63.8 - Anemia in other chronic diseases classified elsewhere (5) Thrombocytopenic Priority: Secondary Status: Acute Assessment and Plan: Platelets better today. 111 up from 70. Continue to monitor in light of ASA and anticoagulation. (6) DAVID (acute kidney injury) Priority: Secondary Status: Resolved Assessment and Plan: -Resolved. (7) Hypertension Priority: Secondary Status: Chronic Assessment and Plan: -BP 147/90 most recent. -Continue carvedilol. Qualifiers: Hypertension type: essential hypertension Qualified Code(s): I10 - Essential (primary) hypertension (8) Tobacco abuse Priority: Secondary Status: Chronic Assessment and Plan: Chronic issue Recommend cessation counselling at [place]. (9) CVA (cerebral vascular accident) Priority: Primary Status: Acute Assessment and Plan: -New acute/subacute CVA on MRI. -His INR has been low and he has hx of hypercoagulable state. -He has been started on IV heparin until his INR increases. -INR not improving at day 4 warfarin, 1.5 today, 1.6 yst. Platelets better at 111K. -Neuro ok to dc. -Continue heparin/warfarin till INR 2.5 -Will need much closer monitoring of INR after dc. -dc today with enoxaparin bridge and warfarin along with continued asa. Qualifiers: CVA mechanism: thrombosis Precerebral and cerebral artery: middle cerebral artery Laterality of affected vessel: right Qualified Code(s): I63.311 - Cerebral infarction due to thrombosis of right middle cerebral artery Hospital course: Mr. Arguello is a 38 year old male who presented to [facility] ED on 08/04/18 via EMS for seizures. He was seizing in his chair approximately 45 minutes before arrival to the ED. He reportedly had 6-7 seizures in the day. On arrival, his vitals were as follows: Temperature 99.1, pulse 133, respiratory rate 20, blood pressure 187/129, O2 sat 100. He was initially responsive when brought in, and was able to follow commands. 15 minutes into his arrival, he began actively seizing, demonstrating tonic-clonic movements. He was unresponsive, and was given 2 mg of Ativan IM, followed by 1 mg of Ativan IV. He stopped seizing at this time and was responsive and able to follow basic commands. There was no urinary incontinence or oral trauma. He was placed on a nonrebreather mask after desaturating down to the 80s with O2 sat subsequently 100%. EKG demonstrated peaked T waves in V2 and V4, possible hyperkalemia. He was given calcium gluconate in the ED. CXR in ED revealed reticular opacities predominantly involving the right lung, new since 07/04/2018. Differentia included atypical infection or asymmetric edema. Started on vanc and zosyn for concerns of aspiration. Transitioned to unasyn the next day and received 6 total days abx in the hospital. Will dc home on 1 day augmentin to complete 7 days abx. He was given IV loading doses of home antiepileptics and no further seizure activity during admission. Phenobarb level was <1 on urine drug screen so unclear if he had been taking his home antiepileptics. Neurology was consulted and ordered MRI brain and found a small lesion in the right temporal lobe, possibly an acute or subacute infarct. Chronic severe frontoparietal brain atrophy and multiple areas of encephalomalacia. No focal neuro deficits and neuro signed off recommending lifelong anticoagulationa and antiplatelet therapy in setting of acute CVA while anticoagulated for his antiphospholipid syndrome. On arrival his INR was 1.6, has been on heparin infusion since arrival and warfarin was restarted on 08/06/18. In the setting of his antiphospholipid syndrome goal INR will be 2.5- 3.5. He will be bridged on lovanox and will followup with warfarin clinic 2-3 days after dc. He will need much closer monitoring of anticoagulation levels after dc given he had not had his INR checked for 2-3 months given his PCP had retired and never followed up with anyone since. Lastly, he has been pancytopenic and recommend HIV lab at time of PCP followup. Discharge discussed with: patient, family - Time Spent with Patient Total time spent providing and/or coordinating discharge services: Less than 30 minutes - Discharge Medications Prescriptions: Enoxaparin [Lovenox] 60 mg SQ Q12HR #14 syr Amoxicillin/Clavulanate [Augmentin] 875 mg PO BIDWM 1 Days #2 tablet Aspirin Enteric Coated [Aspirin EC] 81 mg PO DAILY 30 Days #30 tablet. Simvastatin [Zocor] 20 mg PO HS 30 Days #30 tablet Warfarin [Coumadin] 5 mg PO DAILY #5 tablet Home Medications: levETIRAcetam [Levetiracetam] 1,000 mg PO BID #30 tablet 01/14/17 [Rx] Baclofen [Lioresal] 10 mg PO BID 09/13/17 [History] Lacosamide [Vimpat] 200 mg PO Q12H 09/13/17 [History] Multivitamin [One Daily Multivitamin] 1 each PO DAILY 09/13/17 [History] OxyCODONE Immed Rel [Roxicodone 10 MG] 10 mg PO TID 09/13/17 [History] Quetiapine Fumarate [Seroquel] 50 mg PO TID 09/13/17 [History] Sertraline [Zoloft] 50 mg PO DAILY 09/13/17 [History] Carvedilol 3.125 mg PO BID #60 tablet 07/11/18 [Rx] Enoxaparin [Lovenox] 60 mg SQ Q12HR #14 syr 08/08/18 [Rx] Amoxicillin/Clavulanate [Augmentin] 875 mg PO BIDWM 1 Days #2 tablet 08/09/18 [Rx] Aspirin Enteric Coated [Aspirin EC] 81 mg PO DAILY 30 Days #30 tablet. 08/09/18 [Rx] Simvastatin [Zocor] 20 mg PO HS 30 Days #30 tablet 08/09/18 [Rx] Warfarin [Coumadin] 5 mg PO DAILY #5 tablet 08/09/18 [Rx] Allergies/Adverse Reactions: Allergy/AdvReac Type Severity Reaction Status Date / Time amitriptyline [From Elavil] Allergy Seizure Verified 07/04/18 20:47 Date of admission: 08/04/18 20:20 Primary care physician: PCP NONE Consults: 08/05/18 10:22 Consult to Neurology [CONS] Routine Consulting Provider: [facility] Reason for Consult: S/p multiple seizures yst. Pt of Dr Carrasco Time Notified: 10:23 Call Completed: Yes 08/05/18 11:04 Consult to Speech Therapy [CONS] Routine Comment: Evaluate, develop and implement POC Reason for Consult: Swallow eval, r/o aspiration Call Completed: No 08/06/18 10:39 Consult to Occupational Therapy [CONS] Routine Comment: Evaluate, develop and implement POC Reason for Consult: MRI with probable CVA Does patient have active BEDREST order?: No Is patient medically & hemodynamically stable?: Yes Patient assessed for mobility or mobilized this visit?: Yes Consult to Physical Therapy [CONS] Routine Comment: Evaluate, develop and implement POC Reason for Consult: Probable CVA on MRI Does patient have active BEDREST order?: No Is patient medically & hemodynamically stable?: Yes Patient assessed for mobility or mobilized this visit?: Yes Discharging clinician: José Miguel Shannon Anticipated date of discharge: 08/09/18 - Constitutional Vitals: Temp Pulse Resp BP Pulse Ox 98.5 F 83 20 125/86 96 08/08/18 20:17 08/09/18 05:00 08/09/18 06:53 08/09/18 05:00 08/09/18 05:00 Exam: General: Awake, alert, no signs of acute distress or toxicity. Head: Atraumatic, normocephalic ENT: EOMi, pupils equal and round Neck: supple, trachea midline Chest: Symmetric chest rise, non tender Cardiovascular: RRR, +S1/S2, no murmurs, rubs, heaves, thrills appreciated, no edema, radial pulse 2+ bilat Respiratory: Normal resp effort, CTAB, no wheezes, rhonci, rales appreciated. Abdomen: Soft, non tender, non distended, no guarding, rigidity Extremities: [place], warm, dry, intact - Patient Status Disposition: Home, Self-Care Condition: Good Functional capacity at discharge: uses cane/walker Overall status at discharge: patient is progressing back to baseline - Discharge Instructions Instructions: Warfarin (By mouth), Aspirin (By mouth), Amoxicillin/Clavulanate Potassium (By mouth), Simvastatin (By mouth), Enoxaparin (Injection) Follow Up With: Skyler Caceres [Resident] - 08/12/18 4:00 pm Wendy Carrasco MD [Partnered Physician] - - Diet and Activity Activity: increase activity as tolerated Diet: regular diet - VTE Documentation of Mechanical Device: Graduated compression elastic hosiery <Rocio Bautista - Last Filed: 08/09/18 12:39> Orders not resulted at time of discharge: Pending orders 08/07/18 05:55 Culture,Blood [BC] Stat 08/10/18 04:00 PT/INR [Prothrombin Time INR] [COAG] AM 0400 PT/INR [Prothrombin Time INR] [COAG] AM 0400 08/11/18 04:00 PT/INR [Prothrombin Time INR] [COAG] AM 0400 PT/INR [Prothrombin Time INR] [COAG] AM 0400 - Discharge Diagnosis (1) Anemia Status: Suspected Qualifiers: Anemia type: other cause Other causes of anemia: chronic disease, other Qualified Code(s): D63.8 - Anemia in other chronic diseases classified elsewhere (2) Tobacco abuse Status: Chronic (3) Thrombocytopenic Status: Acute (4) Antiphospholipid syndrome Status: Chronic (5) DAVID (acute kidney injury) Status: Resolved (6) Hypertension Status: Chronic Qualifiers: Hypertension type: essential hypertension Qualified Code(s): I10 - Essential (primary) hypertension (7) PNA (pneumonia) Status: Suspected Qualifiers: Pneumonia type: aspiration pneumonia Aspiration pneumonia type: due to gastric secretions Laterality: right Lung location: middle lobe of lung Qualified Code(s): J69.0 - Pneumonitis due to inhalation of food and vomit (8) Seizure disorder Status: Chronic (9) CVA (cerebral vascular accident) Status: Acute Qualifiers: CVA mechanism: thrombosis Precerebral and cerebral artery: middle cerebral artery Laterality of affected vessel: right Qualified Code(s): I63.311 - Cerebral infarction due to thrombosis of right middle cerebral artery Hospital course: Mr. Arguello is a 38 year old male - Time Spent with Patient Total time spent providing and/or coordinating discharge services: Date of admission: 08/04/18 20:20 Primary care physician: PCP NONE Consults: 08/05/18 10:22 Consult to Neurology [CONS] Routine Consulting Provider: [facility] Reason for Consult: S/p multiple seizures yst. Pt of Dr Carrasco Time Notified: 10:23 Call Completed: Yes 08/05/18 11:04 Consult to Speech Therapy [CONS] Routine Comment: Evaluate, develop and implement POC Reason for Consult: Swallow eval, r/o aspiration Call Completed: No 08/06/18 10:39 Consult to Occupational Therapy [CONS] Routine Comment: Evaluate, develop and implement POC Reason for Consult: MRI with probable CVA Does patient have active BEDREST order?: No Is patient medically & hemodynamically stable?: Yes Patient assessed for mobility or mobilized this visit?: Yes Consult to Physical Therapy [CONS] Routine Comment: Evaluate, develop and implement POC Reason for Consult: Probable CVA on MRI Does patient have active BEDREST order?: No Is patient medically & hemodynamically stable?: Yes Patient assessed for mobility or mobilized this visit?: Yes - Constitutional Vitals: Temp Pulse Resp BP Pulse Ox 98.6 F 91 18 137/92 94 08/09/18 11:35 08/09/18 11:35 08/09/18 11:35 08/09/18 11:35 08/09/18 11:35 - Attending Attestation I examined this patient and my medical decision-making was reviewed with the Resident Physician. I agree with the documented findings, disposition and treatment plan as described except to the extent set forth below. Mr Arguello was admitted for seizure and acute CVA. He had no further seizure activity with loading of home AEDs and conitnuation of home dosing. He will fu with neurology outpt. No driving until seizure free and instructed by neurology. Acute to subacute CVA without residual deficits. Continued on aspirin and warfarin with lovenox bridge at time of dc. He was set up in the resident and coumadin clinics for close monitoring. He was evaluated by pt/ot/educational program assistant this admit. Treated for suspected aspiration pna and will complete oral abx on dc. Stable for dc to home with outpt fu. Awake, feeling well and back to baseline. No complaints. no parasthesias, vision cahnges, mora, speech changes. No scp, cough, sob. Eager for dc to home. discussed dc plan and answered all questions gen- alert, awake,appears stated age eyes- pupils equal round, eom intact cv- reg rate and rhythm, normal s1,s2, no murmurs appreciated lungs- ctabl, no wheezing, rhonchi or crackles, norm resp effort on ra neuro- AAOx3, CN grossly intact, no focal deficits A/P Possible acute to Subacute R Temporal lobe CVA 2/2 hypercoagulable state with green b therapeutic INR - neurology followed, goal INR of 2.5, heparin bridge to warfarin inpt, INR 1.5 with lovenox bridge on dc and close resident clinic and coumadin clinic follow up Anticardiolipin syndrome- AC as above, fu outpt Seizure with Hx Seizure disorder, suspect 2/2 to non compliance with meds given level checks on admit- followed by neuro, will fu outpt, cont home doses of meds, no driving Pancytopenia this admission on review of labs- will fu outpt and rec further work up, including hiv testing at that time, which has been communicated on dc follow up recs Suspected aspiration pna, organism unknown- complete abx course with augmentin on dc Further diagnoses and plan as above. Addendum entered and electronically signed by Rocio Bautista, DO 08/09/18 17:37: While I did not admit this pt and only managed him on his day of discharge, in regards to his stroke the following is noted: He did not receive tpa. He presented with seizure and CVA was noted on MRI to be acute vs sub acute in the days following admission. On review of chart he did not have focal neuro deficit or stroke alert as presenting symptom. I suspect these are the reasons why he did not receive tpa. He was followed by neurology and given his hypercoagulable chronic state he was discharged on antiplatelet and anti coagulation asnoted in dc summary.
[2018-08-09 07:53] LABS: Basophils % 0.3 %; Eosinophils # 0.1 K/mcL (0.0-0.6); Eosinophils % 2.1 %; Hematocrit 29.4 % (37.5-50.1); Hemoglobin 10.1 g/dL (12.9-16.9); Immature Granulocytes % 0.7 % (0-4); Lymphocytes # 0.5 K/mcL (0.6-4.6); Lymphocytes % 17.4 %; Mean Corpuscular HGB Conc 34.4 g/dL (31.6-35.5); Mean Corpuscular Hemoglobin 29.4 pg (28.0-33.3); Mean Corpuscular Volume 85.5 fL (83.0-100.0); Mean Platelet Volume 11.9 fL (9.4-12.4); Monocytes # 0.4 K/mcL (0.0-1.3); Monocytes % 14.6 %; Neutrophils # 1.9 K/mcL (1.6-8.9); Platelet Count 111 K/mcL (140-400); Red Blood Count 3.44 M/mcL (4.19-5.50); Red Cell Distribution Width 14.1 % (11.5-14.5); Segmented Neutrophils % 64.9 %
[2018-08-09 08:02] LABS: INR 1.5; Prothrombin Time 17.1 Seconds (9.4-12.1)
[2018-08-09] MEDS: Multivit/Ca/Min/Fe/FA 1 TAB TABLET PO SCH (09:00)
[2018-08-09] MEDS: Baclofen 10 MG TABLET PO SCH (09:00)
[2018-08-09] MEDS: levETIRAcetam 250 MG TABLET PO SCH (09:00)
[2018-08-09] MEDS: Aspirin Enteric Coated 81 MG Tablet PO SCH (09:00)
[2018-08-09] MEDS: *HR* OxyCODONE Immed Rel 5 MG TABLET PO SCH (09:01)
[2018-08-09 09:20] LABS: BUN/Creatinine Ratio 10 (6-26); Blood Urea Nitrogen 14 mg/dL (6-20); Calcium 8.9 mg/dL (8.6-10.3); Carbon Dioxide 18 mEq/L (23-29); Chloride 109 mEq/L (98-107); Glucose 76 mg/dL (70-105); Magnesium 1.6 mg/dL (1.6-2.6); Osmolality,Calculated 293 (280-300); Phosphorous 3.6 mg/dL (2.7-4.5); Potassium 3.9 mEq/L (3.5-5.1); Sodium 142 mEq/L (136-145); eGFR For Non-African Americans 60 (> 60)
[2018-08-09 11:37] VITALS: BP 137/92
[2018-08-09] MEDS ORDERED: *HR* Warfarin 5 MG TABLET PO SCH (18:00)
[2018-08-09] MEDS ORDERED: Warfarin perPT PO PRN (18:00)
== END 2018-08-09 13:19 | disposition home or self-care (01) | DRG 64 ==
LOC: EMEROOARM 17:03 → ICNU 17:03 → SUATTDRO 20:20 → ICNU 20:52 → 2NNU 08-05 13:21 → 2NENU 08-06 20:47
PROVIDERS: ADMIT Internal Medicine; ATTEND Internal Medicine

== ENCOUNTER 2018-08-17 11:13 | Inpatient (IN) ==
[2018-08-17] MEDS ORDERED: 0.9 % Sodium Chloride 1,000 ML IVC ONE (11:40)
[2018-08-17] MEDS ORDERED: Isovue-370 500 ML INFUS..BTL IV ONE (11:52)
[2018-08-17 12:37] LABS: Basophils % 0.2 %; Eosinophils % 0.6 %; Hemoglobin 9.8 g/dL (12.9-16.9); Immature Granulocytes % 0.4 % (0-4); Lymphocytes # 0.4 K/mcL (0.6-4.6); Lymphocytes % 7.1 %; Mean Corpuscular HGB Conc 33.8 g/dL (31.6-35.5); Mean Corpuscular Hemoglobin 28.7 pg (28.0-33.3); Mean Platelet Volume 10.7 fL (9.4-12.4); Monocytes # 0.6 K/mcL (0.0-1.3); Monocytes % 11.8 %; Neutrophils # 4.3 K/mcL (1.6-8.9); Platelet Count 102 K/mcL (140-400); Red Blood Count 3.41 M/mcL (4.19-5.50); Red Cell Distribution Width 14.1 % (11.5-14.5); Segmented Neutrophils % 79.9 %
[2018-08-17 12:45] LABS: INR 1.6; Prothrombin Time 18.4 Seconds (9.4-12.1)
[2018-08-17 13:04] LABS: Alanine Aminotransferase 11 Units/L (7-52); Albumin 3.8 g/dL (3.5-5.7); Albumin/Globulin Ratio 1.3 (1.1-2.2); Alkaline Phosphatase 89 Units/L (34-104); Aspartate Amino Transferase 12 Units/L (13-39); BUN/Creatinine Ratio 13 (6-26); Bilirubin,Direct 0.1 mg/dL (0.0-0.2); Bilirubin,Indirect 0.3 mg/dL (0.0-1.2); Bilirubin,Total 0.4 mg/dL (0.3-1.0); Blood Urea Nitrogen 16 mg/dL (6-20); Calcium 9.1 mg/dL (8.6-10.3); Carbon Dioxide 23 mEq/L (23-29); Chloride 102 mEq/L (98-107); Globulin 2.9 g/dL (2.4-3.5); Glucose 122 mg/dL (70-105); Lipase 18 Units/L (11-82); Magnesium 1.3 mg/dL (1.6-2.6); Osmolality,Calculated 284 (280-300); Potassium 3.5 mEq/L (3.5-5.1); Sodium 136 mEq/L (136-145); Total Protein 6.7 g/dL (6.4-8.9); eGFR For Non-African Americans > 60 (> 60)
--- NOTE | 2018-08-17 13:26 | Emergency Department Note ---
Disposition Clinical Impression: Cellulitis of submandibular region, SIRS (systemic inflammatory response syndrome), Prolonged QT interval, Lesion of tongue Dysphagia Qualifiers: Dysphagia type: unspecified Qualified Code(s): R13.10 - Dysphagia, unspecified Pneumonia Qualifiers: Pneumonia type: due to unspecified organism Laterality: unspecified laterality Lung location: unspecified part of lung Qualified Code(s): J18.9 - Pneumonia, unspecified organism Disposition: Admitted As Inpatient Condition: Good Referrals: Layo Coe DO [Primary Care Provider] - Forms: ED Satisfaction Letter General Adult HPI - General Chief complaint: ED Seizure Stated complaint: Possible seizure Time Seen by Provider: 08/17/18 11:15 Source: patient, EMS Limitations: no limitations Nursing Notes Reviewed: Yes Vital Signs Reviewed: Yes - History of Present Illness HPI Narrative: History of cervical vascular disease, renal insufficiency, seizure, tachycardia, elevated INR, runny kidney disease, hypertension, pancytopenia, pancytopenia, pneumonia. Patient was brought in by EMS without family for what they said was concern for shaking of the left upper extremity which mother thought might be a seizure. Not similar to any seizure suicidal the past. No change in mental status with this. The patient on exam was not wanting to speak. On exam of his oropharynx there was pooled secretions. After suctioning the patient was able to talk and communicate. He states he has had a mild sore throat as well as generalized body aches. Skin is intermittent abdominal pain which is nonfocal on exam. The patient was found to be febrile at 100.5 with associated tachycardia at 1:30. Patient states that he has not noticed a fever. Patient has no other insight into potential medical problems. Patient will undergo further investigation with blood work as well as looking for source of infection including chest x-ray and urinalysis. Secondary to pooled secretions, the patient did swallow water without difficulty and is phonating without problem, however, I was notified by the nurse this happened one other time where he did not want to talk secondary to secretions, a CT scan of the neck has been ordered. Patient is not in distress at this time. Patient will be monitored closely, if concern for further deterioration more aggressive management will be considered. Pain Scale: 2 - Related Data Home Medications Medication Instructions Recorded Confirmed Baclofen [Lioresal] 10 mg PO BID 09/13/17 08/04/18 Lacosamide [Vimpat] 200 mg PO Q12H 09/13/17 08/04/18 Multivitamin [One Daily 1 each PO DAILY 09/13/17 08/04/18 Multivitamin] OxyCODONE Immed Rel [Roxicodone 10 10 mg PO TID 09/13/17 08/04/18 MG] Quetiapine Fumarate [Seroquel] 50 mg PO TID 09/13/17 08/04/18 Sertraline [Zoloft] 50 mg PO DAILY 09/13/17 08/04/18 Previous Rx's Medication Instructions Recorded levETIRAcetam [Levetiracetam] 1,000 mg PO BID #30 tablet 01/14/17 Carvedilol 3.125 mg PO BID #60 tablet 07/11/18 Enoxaparin [Lovenox] 60 mg SQ Q12HR #14 syr 08/08/18 Aspirin Enteric Coated [Aspirin EC] 81 mg PO DAILY 30 Days #30 08/09/18 tablet. Simvastatin [Zocor] 20 mg PO HS 30 Days #30 tablet 08/09/18 Warfarin [Coumadin] 5 mg PO DAILY #5 tablet 08/09/18 Allergies Allergy/AdvReac Type Severity Reaction Status Date / Time amitriptyline [From Elavil] Allergy Seizure Verified 07/04/18 20:47 All systems ED: reviewed and negative except as stated. Review of Systems: As Per HPI Constitutional: Reports: fever, weakness (Generalized) ENT ED: Reports: throat pain, dysphagia, other (Difficulty swallowing) Cardiovascular: Denies: chest pain, palpitations Respiratory: Denies: cough, dyspnea, wheezes Gastrointestinal: Reports: abdominal pain (Intermittent) Genitourinary: Denies: urgency, dysuria Musculoskeletal: Reports: back pain (Chronic), myalgia (Generalized) Integumentary: Reports: other (Chronic skin changes to the left upper body chest and back). Denies: rash, abrasion, lesions Neurological: Denies: headache Psychiatric: Denies: anxiety, depression Past Medical History - Past Medical History Medical history: Reports: CVA, hyperlipidemia, hypertension, migraine, renal disease, seizures Surgical history: Reports: tracheostomy Psychiatric history: Reports: anxiety, depression, panic disorder - Social History Smoking Status: Current every day smoker Smokeless Tobacco Status: No Alcohol use: Reports: none Drug use: Reports: none Physical Exam General: Well appearing, nontoxic, no acute distress Head: Normocephalic Atraumatic Eyes: PERRL, EOMI ENT: Airway patent, no stridor; mild erythema to the right tonsillar pillar. Uvula is midline. Patient does not have any worsening of his pain with range of motion of his neck. Complete range of motion of his neck intact. Neck: Previous trach scar. supple, no meningismus Chest: Lungs clear to auscultation bilateral Cardiac: Regular rate and rhythm, no murmurs, rubs or gallops Abdomen: Previous feeding tube scar. soft, nontender, nondistended; no guarding, rebound, or tenderness to percussion Musculoskeletal: Calves symmetric, nontender, no palpable cord Skin: No rash, normal skin tone Neuro: Alert and Oriented to person, place, and time; No focal deficit - General Limitations: no limitations General appearance: alert Course - Reevaluation(s) Reevaluation #1: Patient was seen 2 days ago for concern for seizure. Blood work CT scanning urinalysis were performed. No significant amount is found at that time. Today the patient had movement of his left upper extremity which was not associated with loss of consciousness tongue biting or loss of bowel or bladder function. Not consistent with seizure. Return to baseline. He does take multiple seizure medications and mother states that his seizures have been eating worse over the last several months occurring once every couple weeks. The patient was febrile and tachycardic. Chest x-ray shows concern for possible early pneumonia. CT scan shows some swelling around the mandible which on arrival he did have some peritonsillar erythema to the right side. He is missing his teeth and has other vazquez poor dentition to the front. Consistent with possible cellulitis. The patient has been having difficulty tolerating secretions as he prefers to have them suction. He did tolerate ice water by straw. At this time he is not in any sort of respiratory distress. CT scan does not show any other significant abnormalities. Patient will be treated with IV antibiotics. He did have a low magnesium and a prolonged QT at 529. Patient is receiving magnesium, bank, Zosyn. Blood cultures have been ordered and are pending. Urinalysis is also pending. Reevaluation #2: Of note the patient did have an abnormal lesion to the right side of his tongue on reevaluation. Nonspecific at this time. Does look like it could be from previous trauma but abnormal scarring appearance and will eventually need biopsy or oral surgery evaluation. - Consultations Consultation #1: Discussed with hospitalist. Patient accepted for admission. Recommends Finken Zosyn instead of Unasyn. Vital Signs Temperature 100.5 F H 08/17/18 11:19 Pulse Rate 112 08/17/18 11:19 Respiratory Rate 14 08/17/18 11:19 Blood Pressure 165/130 08/17/18 11:19 O2 Sat by Pulse Oximetry 99 08/17/18 11:19 Temperature 100.5 F H 08/17/18 11:19 Pulse Rate 112 08/17/18 11:19 Respiratory Rate 14 08/17/18 11:19 Blood Pressure 165/130 08/17/18 11:19 O2 Sat by Pulse Oximetry 99 08/17/18 11:19 Oxygen Delivery Oxygen Delivery Room Air Medical Decision Making - Lab Data Result diagrams: 08/17/18 12:18 08/17/18 12:18 Lab Results 08/17/18 08/17/18 08/17/18 Range/Units 12:18 12:18 12:18 WBC 5.4 D (4.3-11.1) K/mcL RBC 3.41 L (4.19-5.50) M/mcL Hgb 9.8 L (12.9-16.9) g/dL Hct 29.0 L (37.5-50.1) % MCV 85.0 (83.0-100.0) fL MCH 28.7 (28.0-33.3) pg MCHC 33.8 (31.6-35.5) g/dL RDW 14.1 (11.5-14.5) % Plt Count 102 L (140-400) K/mcL MPV 10.7 (9.4-12.4) fL Immature Gran % 0.4 (0-4) % Seg Neutrophils % 79.9 % Lymphocytes % 7.1 % Monocytes % 11.8 % Eosinophils % 0.6 % Basophils % 0.2 % Neutrophils # 4.3 (1.6-8.9) K/mcL Lymphocytes # 0.4 L (0.6-4.6) K/mcL Monocytes # 0.6 (0.0-1.3) K/mcL Eosinophils # 0.0 (0.0-0.6) K/mcL Basophils # 0.0 (0.0-0.2) K/mcL PT 18.4 H (9.4-12.1) Seconds INR 1.6 Sodium 136 (136-145) mEq/L Potassium 3.5 (3.5-5.1) mEq/L Chloride 102 (98-107) mEq/L Carbon Dioxide 23 (23-29) mEq/L BUN 16 (6-20) mg/dL Creatinine 1.23 (0.70-1.30) mg/dL Est GFR ( Amer) > 60 (> 60) Est GFR (Non-Af Amer) > 60 (> 60) BUN/Creatinine Ratio 13 (6-26) Glucose 122 H (70-105) mg/dL Calculated Osmolality 284 (280-300) Calcium 9.1 (8.6-10.3) mg/dL Magnesium 1.3 L (1.6-2.6) mg/dL Total Bilirubin 0.4 (0.3-1.0) mg/dL Direct Bilirubin 0.1 (0.0-0.2) mg/dL Indirect Bilirubin 0.3 (0.0-1.2) mg/dL AST 12 L (13-39) Units/L ALT 11 (7-52) Units/L Alkaline Phosphatase 89 (34-104) Units/L Serum Total Protein 6.7 (6.4-8.9) g/dL Albumin 3.8 (3.5-5.7) g/dL Globulin 2.9 (2.4-3.5) g/dL Albumin/Globulin Ratio 1.3 (1.1-2.2) Lipase 18 (11-82) Units/L
[2018-08-17] MEDS ORDERED: Piperacillin/Tazobactam 3.375 GM in 0.9 % Sodium Chloride Mini Bag 100 ML IVPB ONE (14:22)
--- NOTE | 2018-08-17 16:37 | Internal Med History&Physical ---
Date of Encounter: 08/17/18 Time of Encounter: 16:00 Internal Medicine - H&P: HPI Chief complaint: Cellulitis of neck. Shakiness of LUE. Admitted From: Home Plans for Post Hospital Care: Home History of present illness: The patient is a 38-year-old mentally handicapped man who has underlying seizure disorder. He was brought to our emergency room, after he had developed an episode of shakiness in his left upper extremity. He did not look like a seizure attack, he used to have before. He did not experience any change in his mental status recently. The shakiness subsided by the time of his arrival to our hospital. We found him to have some redness and swelling on the right side of his neck, with extension to the lower portion of his right face. We do not know when this problem started. He said temperature checked in our ER was 100.5; with heart rate of 112 and blood pressure of 165/130. We also found him to have a copious/thick secretions in oropharynx. They were disturbing his swallowing. He was found to have normal swallowing after aspiration of the secretions. The patient is a very poor historian. He cannot tell me why he is brought to the hospital. He seems to have low IQ. PAST MEDICAL HX: He is mentally handicapped. He does have seizure disorder. He is also treated for hypertension and hyperlipidemia. He takes Coumadin for unknown to me reason. He had CVA in the past; this is why he takes Zocor and aspirin. He takes Seroquel and Zoloft for some kind of a mental problem. He is on when necessary Roxicodone. REVIEW OF SYSTEMS: All 14 organ systems were reviewed by me with the patient. Positive and pertinent negative findings are listed above. The rest of organ systems is negative. The patient is a very poor historian. PHYSICAL EXAM: Skin: There is some redness and swelling on the right side of his neck; with extension to the lower portion of the right face. The rest of his skin is normal in color. It does not show any pathological rash. Eyes: Sclera is white. There is no discharge from eyes. ENMT: Oral/pharyngeal mucosa is normal in appearance. There is no discharge from nose or ears. Respiratory: Normal breath sounds with no crackles and wheezes bilaterally. CV: Heart is regular with no gallop or murmur. GI: Abdomen is flat and soft with no palpable mass or visceromegaly. He wears diapers. : There is no tenderness in patient's flanks bilaterally. Neuro exam: He seems to have good strength in upper and lower extremities. He has normal eye movements. Psychiatric: The patient answers only simple questions. He follows simple commands. ADDITIONAL DATA: CT of the neck shows an area of soft tissue swellingon the right side of his neck; with extension to the lower portion of his right face. Chest x-ray shows increased lung markings bilaterally. They may represent early pneumonia. Hemoglobin is 9.8 with WBC of 5.4 thousand and platelet count of 102,000. Hemoglobin and platelet count are baseline. His sodium is 136 with a potassium of 3.5 and creatinine of 1.23. The rest of his BMP is normal. Magnesium is 1.3. Liver function tests are normal. Lipase is normal. A/P: Cellulitis of neck. He started on IV vancomycin and IV Zosyn by the ER physician. Blood cultures and urine culture are pending. Shakiness of left upper extremity. I doubt it represented atypical seizure. Could be related to his fever/infection. We will be watching for that problem closely. Seizure disorder. We will continue Keppra. When the chair, if he was taking Vimpat at home. Hypertension. Seems to be out of control. I will restart his carvedilol. We may need to adjustments to his antihypertensives. Hyperlipidemia. He is on Zocor. History of CVA. We will continue Zocor and aspirin. Past Med Surg Social Fam HX - Past Medical History Medical history: CVA, hyperlipidemia, hypertension, migraine, renal disease, seizures Additional medical history: TBI Psychiatric history: anxiety, depression, panic disorder - Past Surgical History Surgical History: tracheostomy Additional surgical history: brain surgery - Social History Smoking Status: Current every day smoker Smokeless Tobacco Status: No Alcohol use: none Drug use: none Internal Medicine - H&P: Meds levETIRAcetam [Levetiracetam] 1,000 mg PO BID #30 tablet 01/14/17 [Rx] Baclofen [Lioresal] 10 mg PO BID 09/13/17 [History] Multivitamin [One Daily Multivitamin] 1 each PO DAILY 09/13/17 [History] OxyCODONE Immed Rel [Roxicodone 10 MG] 10 mg PO TID 09/13/17 [History] Quetiapine Fumarate [Seroquel] 50 mg PO HS 09/13/17 [History] Sertraline [Zoloft] 50 mg PO DAILY 09/13/17 [History] Carvedilol 3.125 mg PO BID #60 tablet 07/11/18 [Rx] Aspirin Enteric Coated [Aspirin EC] 81 mg PO DAILY 30 Days #30 tablet. 08/09/18 [Rx] Simvastatin [Zocor] 20 mg PO HS 30 Days #30 tablet 08/09/18 [Rx] Calcium Carbonate/Vitamin D3 [Calcium 500+D Tablet Chew] 1 each PO DAILY 08/17/18 [History] Warfarin Sodium 2 mg PO DAILY 08/17/18 [History] Allergy/AdvReac Type Severity Reaction Status Date / Time amitriptyline [From Elavil] Allergy Seizure Verified 08/17/18 14:47 - Constitutional Vitals: Temp Pulse Resp BP Pulse Ox 100.5 F H 112 14 165/130 99 08/17/18 11:19 08/17/18 11:19 08/17/18 11:19 08/17/18 11:19 08/17/18 11:19 Exam: xx Internal Med - H&P Results - Labs CBC & Chem 7: 08/17/18 12:18 08/17/18 12:18 Labs: Short CBC 08/17/18 Range/Units 12:18 WBC 5.4 D (4.3-11.1) K/mcL Hgb 9.8 L (12.9-16.9) g/dL Hct 29.0 L (37.5-50.1) % Plt Count 102 L (140-400) K/mcL Neutrophils # 4.3 (1.6-8.9) K/mcL BMP 08/17/18 12:18 Sodium 136 Potassium 3.5 Chloride 102 Carbon Dioxide 23 BUN 16 Creatinine 1.23 Glucose 122 H Calcium 9.1 Liver Function 08/17/18 Range/Units 12:18 Total Bilirubin 0.4 (0.3-1.0) mg/dL Direct Bilirubin 0.1 (0.0-0.2) mg/dL AST 12 L (13-39) Units/L ALT 11 (7-52) Units/L Alkaline Phosphatase 89 (34-104) Units/L Albumin 3.8 (3.5-5.7) g/dL - Impressions ITS Impressions Chest X-Ray 08/17/18 11:42 IMPRESSION: Increased lung markings bilaterally, may be related to bronchitis versus early pneumonia. D/ / Semaj Lovell MD / Semaj Lovell MD Interpreting Provider: Semaj Lovell MD Soft Tissue Neck CT 08/17/18 11:52 IMPRESSION: 1. No cervical lymphadenopathy or abscess. 2. Nonspecific soft tissue swelling along the right side of the face, near the mandible. Correlate with signs of edema/infection. No focal abscess. D/ / 08/17/2018 14:02:08 Ronaldo Fairbanks MD / elise Interpreting Provider: Ronaldo Fairbanks MD - Assessment and plan (1) Cellulitis of neck Current Visit: Yes Status: Acute (2) Shakiness Current Visit: Yes Status: Suspected (3) Seizure disorder Current Visit: Yes Status: Chronic (4) Hypertension Current Visit: Yes Status: Chronic Qualifiers: Hypertension type: essential hypertension Qualified Code(s): I10 - Essential (primary) hypertension (5) HLD (hyperlipidemia) Current Visit: Yes Status: Chronic Qualifiers: Hyperlipidemia type: unspecified Qualified Code(s): E78.5 - Hyperlipidemia, unspecified - Time Spent With Patient Total time spent is greater than 50% in coordination of care (as documented) at patient's floor/unit and/or counseling patient: 25 - 35 minutes
[2018-08-17] MEDS ORDERED: Warfarin perPT PO PRN (18:00)
[2018-08-17] MEDS ORDERED: *HR* Warfarin 5 MG TABLET PO ONE (18:07)
[2018-08-17] MEDS: Aspirin Enteric Coated 81 MG Tablet PO SCH (19:35)
[2018-08-17] MEDS: Piperacillin/Tazobactam 3.375 GM in 0.9 % Sodium Chloride Mini Bag 100 ML IVPB SCH (19:36)
[2018-08-17] MEDS: *HR* OxyCODONE Immed Rel 5 MG TABLET PO SCH ×2 (19:50→20:45)
[2018-08-17] MEDS: Baclofen 10 MG TABLET PO SCH (20:45)
[2018-08-17] MEDS: levETIRAcetam 250 MG TABLET PO SCH (20:46)
--- NOTE | 2018-08-17 21:16 | Electrocardiograph Report ---
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
[2018-08-18] MEDS: Piperacillin/Tazobactam 3.375 GM in 0.9 % Sodium Chloride Mini Bag 100 ML IVPB SCH ×3 (02:41→19:24)
[2018-08-18 05:08] LABS: INR 2.4; Prothrombin Time 26.6 Seconds (9.4-12.1)
[2018-08-18 05:19] LABS: BUN/Creatinine Ratio 12 (6-26); Blood Urea Nitrogen 15 mg/dL (6-20); Calcium 8.5 mg/dL (8.6-10.3); Carbon Dioxide 24 mEq/L (23-29); Chloride 104 mEq/L (98-107); Glucose 105 mg/dL (70-105); Magnesium 1.9 mg/dL (1.6-2.6); Osmolality,Calculated 285 (280-300); Potassium 3.3 mEq/L (3.5-5.1); Sodium 137 mEq/L (136-145); eGFR For Non-African Americans > 60 (> 60)
[2018-08-18] MEDS ORDERED: *HR* Morphine 2 MG/ML SYRINGE IVP ONE (06:52)
[2018-08-18] MEDS ORDERED: OXYCODONE Oral CONC 10 MG/0.5 ML ORAL.SYG SL ONE (07:32)
[2018-08-18] MEDS ORDERED: NON-FORMULARY MEDICATION 1 EACH EACH (Calcium Carbonate/Vitamin D3 [Calcium 500+D Tablet C PO SCH (09:00)
[2018-08-18] MEDS: *HR* OxyCODONE Immed Rel 5 MG TABLET PO SCH ×3 (11:38→23:26)
[2018-08-18] MEDS: Baclofen 10 MG TABLET PO SCH ×2 (11:38→23:31)
[2018-08-18] MEDS: Cholecalciferol (D-3) 1,000 UNIT TABLET PO SCH (11:39)
[2018-08-18] MEDS: levETIRAcetam 250 MG TABLET PO SCH ×2 (11:39→23:29)
[2018-08-18] MEDS: Multivit/Ca/Min/Fe/FA 1 TAB TABLET PO SCH (11:40)
[2018-08-18] MEDS: Aspirin Enteric Coated 81 MG Tablet PO SCH (12:01)
[2018-08-18] MEDS ORDERED: *HR* Warfarin 1 MG TABLET PO ONE (18:00)
--- NOTE | 2018-08-18 20:46 | Internal Med Progress Note ---
Hospitalist Progress Note - Encounter Date of Encounter: 08/18/18 Time of Encounter: 11:00 - Subjective Interval History: SUBJECTIVE: The patient behaves normal. We have not observed any seizure activity or shakiness of his left upper extremity (other extremities) since admitting him to the hospital floor. He is not voicing any particular symptoms. He has normal appetite. He stays in bed most of time. OBJECTIVE: Skin: Free of rash and discoloration. I cannot see any redness or swelling on the right side of his face/neck today. ENMT: Oral/pharyngeal mucosa is normal in appearance. Eyes: Sclera is white. There is no discharge from eyes. Respiratory: Normal breath sounds; no crackles or wheezes. CV: Heart is regular; no gallop or murmur. GI: Abdomen is soft and not tender. There is no palpable mass or visceromegaly. Neuro: There is no focal deficits. ADDITIONAL DATA: His potassium is 3.3; 3.5 yesterday. His magnesium is 1.9; 1.3 yesterday. Creatinine is 1.27. ASSESSMENT AND PLAN: Cellulitis of right side of the neck. Basically subsided after couple doses of IV vancomycin and a couple doses of IV Zosyn. We will change the dose antibiotics to oral doxycycline tomorrow. Shakiness of left upper extremity (before coming to the emergency room). Etiology is unclear. He has underlying seizure disorder (stable). I doubt that shakiness represents seizure. Hypertension. Under control. He is on carvedilol. Hyperlipidemia. He is on simvastatin. His hypomagnesemia subside. After giving him IV magnesium sulfate. He has de veloped mild hypokalemia. We will treated it with oral potassium chloride. DISPOSITION: I feel, that we can discharge him home on oral doxycycline tomorrow. - Exam Vitals: Temp Pulse Resp BP Pulse Ox 98.5 F 103 14 144/95 98 08/18/18 19:02 08/18/18 19:02 08/18/18 19:02 08/18/18 19:02 08/18/18 19:02 Exam: xx - Assessment and Plan (1) Cellulitis of neck Current Visit: Yes Status: Acute (2) Shakiness Current Visit: Yes Status: Suspected (3) Seizure disorder Current Visit: Yes Status: Chronic (4) Hypertension Current Visit: Yes Status: Chronic (5) HLD (hyperlipidemia) Current Visit: Yes Status: Chronic - Time Spent with Patient Total time spent is greater than 50% in coordination of care (as documented) at patient's floor/unit and/or counseling patient: 25 - 35 minutes Plan of Care Discussed with: patient Internal Medicine: Result - Labs CBC & Chem 7: 08/17/18 12:18 08/18/18 04:45 Labs: BMP 08/18/18 04:45 Sodium 137 Potassium 3.3 L Chloride 104 Carbon Dioxide 24 BUN 15 Creatinine 1.27 Glucose 105 Calcium 8.5 L - ABG Interpretation ABG results: PT/INR, D-dimer PT 26.6 Seconds (9.4-12.1) H 08/18/18 04:45 Consult Discharge Plan - Plan Referrals: Layo Coe DO [Primary Care Provider] - (4) Hypertension Qualifiers: Hypertension type: essential hypertension Qualified Code(s): I10 - Essential (primary) hypertension (5) HLD (hyperlipidemia) Qualifiers: Hyperlipidemia type: unspecified Qualified Code(s): E78.5 - Hyperlipidemia, unspecified
[2018-08-18] MEDS ORDERED: Melatonin 3 MG TABLET PO PRN (23:16)
[2018-08-19] MEDS: Piperacillin/Tazobactam 3.375 GM in 0.9 % Sodium Chloride Mini Bag 100 ML IVPB SCH ×2 (04:00→13:38)
[2018-08-19 05:57] LABS: Prothrombin Time 22.6 Seconds (9.4-12.1)
[2018-08-19] MEDS: Cholecalciferol (D-3) 1,000 UNIT TABLET PO SCH (08:59)
[2018-08-19] MEDS: Baclofen 10 MG TABLET PO SCH (08:59)
[2018-08-19] MEDS: *HR* OxyCODONE Immed Rel 5 MG TABLET PO SCH (08:59)
[2018-08-19] MEDS: Multivit/Ca/Min/Fe/FA 1 TAB TABLET PO SCH (08:59)
[2018-08-19] MEDS: Aspirin Enteric Coated 81 MG Tablet PO SCH (08:59)
[2018-08-19] MEDS: levETIRAcetam 250 MG TABLET PO SCH (09:00)
[2018-08-19 12:00] VITALS: BP 135/91
--- NOTE | 2018-08-19 14:41 | Discharge Summary ---
Orders not resulted at time of discharge: Pending orders 08/17/18 11:40 Urinalysis Reflex Cult & Micro [URIN] Stat 08/17/18 14:44 Culture,Blood [BC] Stat 08/20/18 04:00 PT/INR [Prothrombin Time INR] [COAG] AM 0400 08/21/18 04:00 PT/INR [Prothrombin Time INR] [COAG] AM 0400 08/22/18 04:00 PT/INR [Prothrombin Time INR] [COAG] AM 0400 Date of Encounter: 08/19/18 Time of Encounter: 14:39 - Discharge Diagnosis (1) Cellulitis of neck Priority: Primary Status: Acute (2) Shakiness Priority: Primary Status: Suspected (3) Urinary incontinence Priority: Secondary Status: Chronic Qualifiers: Urinary Incontinence type: unspecified incontinence Qualified Code(s): R32 - Unspecified urinary incontinence (4) Stool incontinence Priority: Secondary Status: Chronic Qualifiers: Fecal incontinence type: unspecified Qualified Code(s): R15.9 - Full incontinence of feces (5) Seizure disorder Priority: Secondary Status: Chronic (6) Hypertension Priority: Secondary Status: Chronic Qualifiers: Hypertension type: essential hypertension Qualified Code(s): I10 - Essential (primary) hypertension (7) HLD (hyperlipidemia) Priority: Secondary Status: Chronic Qualifiers: Hyperlipidemia type: unspecified Qualified Code(s): E78.5 - Hyperlipidemia, unspecified Hospital course: Mr. Arguello is a 38 year old male Discharge discussed with: patient, family, nurse, case management - Time Spent with Patient Total time spent providing and/or coordinating discharge services: Greater than 30 minutes (40 minutes..) - Discharge Medications Prescriptions: Loperamide [Imodium] 2 mg PO BID #60 capsule Oxybutynin Chloride [Ditropan Xl] 10 mg PO DAILY #30 tab.er.24 Home Medications: levETIRAcetam [Levetiracetam] 1,000 mg PO BID #30 tablet 01/14/17 [Rx] Baclofen [Lioresal] 10 mg PO BID 09/13/17 [History] Multivitamin [One Daily Multivitamin] 1 each PO DAILY 09/13/17 [History] OxyCODONE Immed Rel [Roxicodone 10 MG] 10 mg PO TID 09/13/17 [History] Quetiapine Fumarate [Seroquel] 50 mg PO HS 09/13/17 [History] Sertraline [Zoloft] 50 mg PO DAILY 09/13/17 [History] Carvedilol 3.125 mg PO BID #60 tablet 07/11/18 [Rx] Aspirin Enteric Coated [Aspirin EC] 81 mg PO DAILY 30 Days #30 tablet.dr 08/09/18 [Rx] Simvastatin [Zocor] 20 mg PO HS 30 Days #30 tablet 08/09/18 [Rx] Calcium Carbonate/Vitamin D3 [Calcium 500+D Tablet Chew] 1 each PO DAILY 08/17/18 [History] Warfarin Sodium 2 mg PO DAILY 08/17/18 [History] Loperamide [Imodium] 2 mg PO BID #60 capsule 08/19/18 [Rx] Oxybutynin Chloride [Ditropan Xl] 10 mg PO DAILY #30 tab.er.24 08/19/18 [Rx] Allergies/Adverse Reactions: Allergy/AdvReac Type Severity Reaction Status Date / Time amitriptyline [From Elavil] Allergy Seizure Verified 08/17/18 14:47 Date of admission: 08/17/18 17:19 Primary care physician: Layo Coe Consults: 08/17/18 21:32 Consult to Instructional Design Technologist [CONS] Routine Reason for SW Consult: Pt is mentally handicapped, pt's family is unable to provide appropriate care at home and would like to know care options for discharge. Discharging clinician: Rambo Mercado Anticipated date of discharge: 08/19/18 - Constitutional Vitals: Temp Pulse Resp BP Pulse Ox 98.3 F 91 15 135/91 96 08/19/18 11:58 08/19/18 11:58 08/19/18 11:58 08/19/18 11:58 08/19/18 11:58 General appearance: Present: no acute distress, answers questions appropriately Exam: xx - Patient Status Disposition: Home, Self-Care Condition: Fair Functional capacity at discharge: independent ambulation Overall status at discharge: patient is back to baseline - Discharge Instructions Follow Up With: Layo Coe DO [Primary Care Provider] - Additional Instructions: FOLLOW-UP WITH NEUROLOGY -- IN 1-2 WEEKS.. - Diet and Activity Activity: resume usual activities as tolerated Diet: regular diet - VTE Reasons for not Prescribing Prophylaxis: Treatment not Indicated - Low risk for VTE Deep Vein Thrombosis/Pulmonary Embolism Present on Admission: No
[2018-08-19 15:42] LABS: Bilirubin,Urine Negative (Negative); Blood,Urine Large (Negative); Clarity,Urine Cloudy (Clear); Color,Urine Yellow (Yellow); Glucose,Urine (UA) Normal (Normal); Ketones,Urine Negative (Negative); Leukocyte Esterase,Urine Negative (Negative); Nitrite,Urine Negative (Negative); Protein,Urine 100 mg/dL (Neg-Trace); Specific Gravity,Urine 1.027 (1.010-1.025); Urobilinogen,Urine Normal (Normal)
[2018-08-19 15:48] LABS: Bacteria,Urine None Seen per hpf (None-Few); Hyaline Casts,Urine None Seen per lpf (None-Few); Squamous Epithelial Cell,Urine Many per lpf (None-Few)
[2018-08-19 16:09] LABS: RBC,Urine 30-50 per hpf (0-3)
[2018-08-19] MEDS ORDERED: *HR* Warfarin 3 MG TABLET PO ONE (18:00)
== END 2018-08-19 16:41 | disposition home or self-care (01) | DRG 603 ==
LOC: 3ANU 11:13 → EMEROOARM 11:13 → SUATTDRO 17:19 → 3ANU 18:00
PROVIDERS: ADMIT Internal Medicine; ATTEND Internal Medicine

== ENCOUNTER 2019-07-27 23:11 | Inpatient (IN) ==
[2019-07-27] MEDS ORDERED: 0.9 % Sodium Chloride 1,000 ML IVC ONE (23:21)
[2019-07-27] MEDS ORDERED: *HR* OxyCODONE/APAP 5/325 TABLET PO ONE (23:26)
[2019-07-27] MEDS ORDERED: Tdap (Boostrix) Vaccine 0.5 ML SYRINGE IM ONE (23:28)
[2019-07-28 00:10] LABS: INR 1.7; Prothrombin Time 19.3 Seconds (9.4-12.1)
[2019-07-28 00:13] LABS: Activated Partial Thrombo Time 81.9 Seconds (26.0-36.0)
[2019-07-28 00:37] LABS: Basophils % 0.4 %; Eosinophils % 0.5 %; Hematocrit 23.4 % (37.5-50.1); Hemoglobin 7.8 g/dL (12.9-16.9); Immature Granulocytes % 0.7 % (0-4); Lymphocytes # 0.6 K/mcL (0.6-4.6); Mean Corpuscular HGB Conc 33.3 g/dL (31.6-35.5); Mean Corpuscular Hemoglobin 29.4 pg (28.0-33.3); Mean Corpuscular Volume 88.3 fL (83.0-100.0); Mean Platelet Volume 12.4 fL (9.4-12.4); Monocytes # 0.5 K/mcL (0.0-1.3); Monocytes % 9.5 %; Neutrophils # 4.4 K/mcL (1.6-8.9); Platelet Count 157 K/mcL (140-400); Red Blood Count 2.65 M/mcL (4.19-5.50); Red Cell Distribution Width 13.8 % (11.5-14.5); Segmented Neutrophils % 78.9 %; White Blood Count 5.6 K/mcL (4.3-11.1)
[2019-07-28 01:15] LABS: Calcium 8.5 mg/dL (8.6-10.3); Potassium 4.1 mEq/L (3.5-5.1)
[2019-07-28] MEDS ORDERED: *HR* OxyCODONE/APAP 5/325 TABLET PO ONE (02:33)
[2019-07-28 03:22] LABS: Albumin 3.3 g/dL (3.5-5.7); Bilirubin,Direct 0.1 mg/dL (0.0-0.2); Bilirubin,Indirect 0.3 mg/dL (0.0-1.2); Bilirubin,Total 0.4 mg/dL (0.3-1.0); Globulin 3.2 g/dL (2.4-3.5); Total Protein 6.5 g/dL (6.4-8.9)
[2019-07-28] MEDS ORDERED: Naloxone 0.4 MG/ML INJ IVP PRN (06:05)
[2019-07-28 06:39] LABS: Hematocrit 21.6 % (37.5-50.1); Hemoglobin 7.3 g/dL (12.9-16.9); Mean Corpuscular HGB Conc 33.8 g/dL (31.6-35.5); Mean Corpuscular Hemoglobin 29.6 pg (28.0-33.3); Mean Corpuscular Volume 87.4 fL (83.0-100.0); Mean Platelet Volume 10.6 fL (9.4-12.4); Platelet Count 153 K/mcL (140-400); Red Blood Count 2.47 M/mcL (4.19-5.50); Red Cell Distribution Width 13.7 % (11.5-14.5); White Blood Count 5.6 K/mcL (4.3-11.1)
[2019-07-28 06:46] LABS: Prothrombin Time 22.3 Seconds (9.4-12.1)
[2019-07-28 06:56] LABS: Magnesium 1.8 mg/dL (1.6-2.6); Phosphorous 4.4 mg/dL (2.7-4.5)
[2019-07-28 06:57] LABS: Calcium 8.5 mg/dL (8.6-10.3); Potassium 4.4 mEq/L (3.5-5.1)
[2019-07-28 06:59] LABS: % Iron Saturation 14 % (20-55); Iron 22 mcg/dL (65-175); Transferrin 114 mg/dL (203-362)
[2019-07-28 07:16] LABS: Ferritin 516 ng/mL (20-250)
[2019-07-28] MEDS ORDERED: Azithromycin 500 MG in D5% in Water 250 ML IVPB ONE (07:35)
[2019-07-28] MEDS: levETIRAcetam 250 MG TABLET PO SCH ×2 (07:40→20:12)
[2019-07-28] MEDS: Baclofen 10 MG TABLET PO SCH ×2 (07:41→20:11)
[2019-07-28] MEDS: Nicotine 21 MG PATCH.TD24 TD SCH (07:41)
[2019-07-28] MEDS: cefTRIAXone 1,000 MG in 0.9 % Sodium Chloride Mini Bag 100 ML IVPB SCH (07:54)
[2019-07-28] MEDS ORDERED: Azithromycin 500 MG in D5% in Water 250 ML IVPB SCH (08:00)
[2019-07-28] MEDS ORDERED: cefTRIAXone 1,000 MG in Water for inj. (sterile) 10 ML IVP SCH (09:00)
[2019-07-28] MEDS: Ringers Solution, Lactated 1,000 ML IVC SCH ×2 (12:46→16:19)
[2019-07-28] MEDS: Gentamicin Oint 15 GM TUBE TP SCH (12:46)
[2019-07-28] MEDS: Doxycycline 100 MG in 0.9 % Sodium Chloride Mini Bag 100 ML IVPB SCH (17:23)
[2019-07-28] MEDS ORDERED: Warfarin perPT PO PRN (18:00)
[2019-07-28] MEDS ORDERED: *HR* Warfarin 3 MG TABLET PO ONE (18:00)
[2019-07-28] MEDS: lamoTRIgine 100 MG TABLET PO SCH (20:10)
[2019-07-29 00:54] LABS: Bilirubin,Urine Negative (Negative); Blood,Urine Negative (Negative); Clarity,Urine Clear (Clear); Color,Urine Yellow (Yellow); Glucose,Urine (UA) Normal (Normal); Ketones,Urine Negative (Negative); Leukocyte Esterase,Urine Negative (Negative); Nitrite,Urine Negative (Negative); PH,Urine 5.5 pH Units (5.0-8.0); Protein,Urine 100 mg/dL (Neg-Trace); Specific Gravity,Urine 1.027 (1.010-1.025); Urobilinogen,Urine Normal (Normal)
[2019-07-29 00:56] LABS: Bacteria,Urine None Seen per hpf (None-Few); Hyaline Casts,Urine None Seen per lpf (None-Few); RBC,Urine 0-3 per hpf (0-3); Squamous Epithelial Cell,Urine Many per lpf (None-Few)
[2019-07-29 01:05] LABS: Amphetamine Screen,Urine Negative ng/mL (Cutoff=1000); Barbiturate Screen,Urine Negative ng/mL (Cutoff=200); Benzodiazepines Screen,Urine Negative ng/mL (Cutoff=200); Cannabinoid Screen,Urine Positive ng/mL (Cutoff = 50); Cocaine Screen,Urine Negative ng/mL (Cutoff= 300); Opiate Screen,Urine Positive ng/mL (Cutoff=300); Phencyclidine Screen,Urine Negative ng/mL (Cutoff=25)
[2019-07-29 05:57] LABS: Basophils % 0.2 %; Eosinophils % 0.2 %; Hematocrit 22.5 % (37.5-50.1); Hemoglobin 7.3 g/dL (12.9-16.9); Immature Granulocytes % 0.9 % (0-4); Lymphocytes # 0.6 K/mcL (0.6-4.6); Lymphocytes % 6.7 %; Mean Corpuscular HGB Conc 32.4 g/dL (31.6-35.5); Mean Corpuscular Hemoglobin 28.9 pg (28.0-33.3); Mean Corpuscular Volume 88.9 fL (83.0-100.0); Mean Platelet Volume 11.2 fL (9.4-12.4); Monocytes # 0.7 K/mcL (0.0-1.3); Monocytes % 8.1 %; Neutrophils # 7.6 K/mcL (1.6-8.9); Platelet Count 180 K/mcL (140-400); Red Blood Count 2.53 M/mcL (4.19-5.50); Red Cell Distribution Width 14.2 % (11.5-14.5); Segmented Neutrophils % 83.9 %
[2019-07-29 06:08] LABS: Prothrombin Time 33.8 Seconds (9.4-12.1)
[2019-07-29 06:16] LABS: Calcium 8.6 mg/dL (8.6-10.3); Potassium 4.5 mEq/L (3.5-5.1)
[2019-07-29] MEDS: Doxycycline 100 MG in 0.9 % Sodium Chloride Mini Bag 100 ML IVPB SCH (06:34)
[2019-07-29] MEDS ORDERED: 0.9 % Sodium Chloride 1,000 ML IVC ONE (07:26)
[2019-07-29] MEDS ORDERED: 0.9 % Sodium Chloride 1,000 ML IVC SCH (07:30)
[2019-07-29] MEDS: Ringers Solution, Lactated 1,000 ML IVC SCH ×2 (07:59→08:35)
[2019-07-29] MEDS: Nicotine 21 MG PATCH.TD24 TD SCH (08:32)
[2019-07-29] MEDS: lamoTRIgine 100 MG TABLET PO SCH (08:32)
[2019-07-29] MEDS: Gentamicin Oint 15 GM TUBE TP SCH (08:33)
[2019-07-29] MEDS: Baclofen 10 MG TABLET PO SCH (08:33)
[2019-07-29] MEDS: levETIRAcetam 250 MG TABLET PO SCH (08:33)
[2019-07-29] MEDS: cefTRIAXone 1,000 MG in 0.9 % Sodium Chloride Mini Bag 100 ML IVPB SCH (08:33)
[2019-07-29] MEDS ORDERED: Azithromycin 250 MG TABLET PO SCH (09:00)
[2019-07-29] MEDS ORDERED: 0.9 % Sodium Chloride 250 ML ONE (13:30)
[2019-07-29 13:51] LABS: ABG Base Excess -9 mEq/L (-2 to 3); ABG HCO3 15 mEq/L (21-27); ABG Oxygen Saturation 95 % (95-98); ABG PCO2 22 mmHg (35-45); ABG PH 7.44 pH Units (7.32-7.45); ABG PO2 70 mmHg (85-104); ABG TCO2 15 mEq/L (20-26)
[2019-07-29] MEDS ORDERED: *HR* FentaNYL (PF) 100 MCG/2 ML VIAL ONE (14:01)
[2019-07-29] MEDS ORDERED: *HR* Midazolam HCl 2 MG/2 ML VIAL ONE ×2 (14:02→14:34)
[2019-07-29] MEDS ORDERED: *HR* FentaNYL (PF) 100 MCG/2 ML VIAL IVP ONE ×2 (14:09→14:42)
[2019-07-29] MEDS ORDERED: *HR* Midazolam HCl 2 MG/2 ML VIAL IVP ONE ×2 (14:09→14:42)
[2019-07-29] MEDS ORDERED: Artificial Tears SOLN 15 ML BOTTLE BOTH EYES PRN (14:11)
[2019-07-29] MEDS ORDERED: FentaNYL (PF) 1,000 MCG in 0.9 % Sodium Chloride 80 ML IVC SCH (14:15)
[2019-07-29] MEDS ORDERED: Norepinephrine 4 MG in 0.9 % Sodium Chloride 250 ML IVC SCH (14:15)
[2019-07-29] MEDS ORDERED: Pantoprazole 40 MG VIAL IVP SCH (14:30)
[2019-07-29] MEDS ORDERED: levoFLOXacin 750 MG/150 ML 750 MG/150 ML BAG IVPB SCH (14:30)
[2019-07-29] MEDS ORDERED: *HR* LORazepam 2 MG/ML VIAL IVP PRN (14:41)
[2019-07-29] MEDS ORDERED: Vancomycin (wt based) 1,000 MG VIAL IVPB SCH (15:00)
[2019-07-29] MEDS: 0.9 % Sodium Chloride 1,000 ML IVC SCH ×2 (15:31→16:46)
[2019-07-29 15:56] LABS: ABG Base Excess -7 mEq/L (-2 to 3); ABG HCO3 18 mEq/L (21-27); ABG Oxygen Saturation 99 % (95-98); ABG PCO2 34 mmHg (35-45); ABG PH 7.33 pH Units (7.32-7.45); ABG PO2 127 mmHg (85-104); ABG TCO2 19 mEq/L (20-26); Blood Gas VT 450 cc
[2019-07-29] MEDS ORDERED: Artificial Tears SOLN 15 ML BOTTLE BOTH EYES SCH (16:00)
[2019-07-29] MEDS ORDERED: Piperacillin/Tazobactam 3.375 GM in 0.9 % Sodium Chloride Mini Bag 100 ML IVPB SCH (16:00)
[2019-07-29] MEDS ORDERED: *HR* Heparin 5,000 UNIT/ML VIAL IVP PRN ×2 (16:01)
[2019-07-29] MEDS ORDERED: Heparin 25,000 UNIT/250 ML D5W 25,000 UNIT/250 ML IV.SOLN IVC SCH (16:15)
[2019-07-29] MEDS ORDERED: Isovue-370 500 ML BOTTLE IVP ONE (16:16)
[2019-07-29 16:47] LABS: Red Cell Distribution Width 14.6 % (11.5-14.5)
[2019-07-29 16:49] LABS: Hematocrit 17.6 % (37.5-50.1); Mean Corpuscular HGB Conc 31.8 g/dL (31.6-35.5); Mean Corpuscular Hemoglobin 29.2 pg (28.0-33.3); Mean Corpuscular Volume 91.7 fL (83.0-100.0); Platelet Count 116 K/mcL (140-400); Red Blood Count 1.92 M/mcL (4.19-5.50); White Blood Count 7.5 K/mcL (4.3-11.1)
[2019-07-29 16:55] LABS: Hemoglobin 5.6 g/dL (12.9-16.9)
[2019-07-29 17:11] LABS: Albumin 2.5 g/dL (3.5-5.7); Bilirubin,Total 0.3 mg/dL (0.3-1.0); Globulin 2.5 g/dL (2.4-3.5); Magnesium 1.6 mg/dL (1.6-2.6); Potassium 4.6 mEq/L (3.5-5.1)
[2019-07-29] MEDS ORDERED: *HR* Warfarin 2 MG TABLET PO ONE (18:00)
[2019-07-29] MEDS ORDERED: *HR* Succinylcholine 200 MG/10 ML VIAL IVP ONE (18:29)
[2019-07-29] MEDS ORDERED: *HR* Etomidate 20 MG/10 ML AMPUL IVP ONE (18:29)
[2019-07-29] MEDS ORDERED: Aminoglycoside Consult 1 EACH MC ONE (18:29)
[2019-07-29 18:46] VITALS: BP 93/75
[2019-07-29] MEDS ORDERED: Chlorhexidine Rinse 15 ML MOUTHWASH MM SCH (21:00)
[2019-07-29] MEDS ORDERED: Budesonide/Formoterol 160/4.5 1 PUFF INH IH SCH (22:00)
== END 2019-07-29 18:30 | DRG 871 ==
LOC: 2ANU 23:11 → EMEROOARM 23:11 → SUATTDRO 07-28 02:55 → 2ANU 07-28 03:05 → ICNU 07-29 13:40
PROVIDERS: ADMIT Family Medicine; ATTEND Internal Medicine

== ENCOUNTER 2019-08-31 22:27 | Inpatient (IN) ==
[2019-08-31 23:55] LABS: Basophils % 0.3 %; Eosinophils # 0.2 K/mcL (0.0-0.6); Eosinophils % 2.5 %; Hematocrit 22.9 % (37.5-50.1); Hemoglobin 8.1 g/dL (12.9-16.9); Immature Granulocytes % 0.9 % (0-4); Lymphocytes # 0.4 K/mcL (0.6-4.6); Lymphocytes % 6.8 %; Mean Corpuscular HGB Conc 35.4 g/dL (31.6-35.5); Mean Corpuscular Hemoglobin 30.5 pg (28.0-33.3); Mean Corpuscular Volume 86.1 fL (83.0-100.0); Mean Platelet Volume 10.9 fL (9.4-12.4); Monocytes # 0.7 K/mcL (0.0-1.3); Monocytes % 11.3 %; Platelet Count 196 K/mcL (140-400); Red Blood Count 2.66 M/mcL (4.19-5.50); Red Cell Distribution Width 16.4 % (11.5-14.5); Segmented Neutrophils % 78.2 %; White Blood Count 6.4 K/mcL (4.3-11.1)
[2019-09-01 00:06] LABS: Acetaminophen < 10 mcg/mL (10-20); Alanine Aminotransferase 17 Units/L (7-52); Albumin 3.9 g/dL (3.5-5.7); Albumin/Globulin Ratio 1.3 (1.1-2.2); Alkaline Phosphatase 118 Units/L (34-104); Aspartate Amino Transferase 19 Units/L (13-39); BUN/Creatinine Ratio 21 (6-26); Bilirubin,Total 0.3 mg/dL (0.3-1.0); Blood Urea Nitrogen 33 mg/dL (6-20); Calcium 8.7 mg/dL (8.6-10.3); Carbon Dioxide 24 mEq/L (23-29); Chloride 91 mEq/L (98-107); Ethanol < 10 mg/dL (Less than 10); Globulin 2.9 g/dL (2.4-3.5); Glucose 122 mg/dL (70-105); Magnesium 1.6 mg/dL (1.6-2.6); Osmolality,Calculated 267 (280-300); Potassium 3.7 mEq/L (3.5-5.1); Salicylate < 2.5 mg/dL (15.0-30.0); Sodium 124 mEq/L (136-145); Total Protein 6.8 g/dL (6.4-8.9); eGFR For African Americans 59 (> 60); eGFR For Non-African Americans 49 (> 60)
[2019-09-01 01:36] LABS: Bilirubin,Urine Negative (Negative); Blood,Urine Negative (Negative); Clarity,Urine Clear (Clear); Color,Urine Yellow (Yellow); Glucose,Urine (UA) Normal (Normal); Ketones,Urine Negative (Negative); Leukocyte Esterase,Urine Negative (Negative); Nitrite,Urine Negative (Negative); Protein,Urine 100 mg/dL (Neg-Trace); Specific Gravity,Urine 1.011 (1.010-1.025); Urobilinogen,Urine Normal (Normal)
[2019-09-01 01:39] LABS: Bacteria,Urine None Seen per hpf (None-Few); Hyaline Casts,Urine None Seen per lpf (None-Few); RBC,Urine 0-3 per hpf (0-3); Squamous Epithelial Cell,Urine None Seen per lpf (None-Few); WBC,Urine 0-3 per hpf (0-3)
[2019-09-01 01:52] LABS: Amphetamine Screen,Urine Negative ng/mL (Cutoff=1000); Barbiturate Screen,Urine Negative ng/mL (Cutoff=200); Benzodiazepines Screen,Urine Negative ng/mL (Cutoff=200); Cannabinoid Screen,Urine Positive ng/mL (Cutoff = 50); Cocaine Screen,Urine Negative ng/mL (Cutoff= 300); Opiate Screen,Urine Negative ng/mL (Cutoff=300); Phencyclidine Screen,Urine Negative ng/mL (Cutoff=25)
[2019-09-01] MEDS ORDERED: *HR* LORazepam 2 MG/ML VIAL ONE (02:10)
[2019-09-01] MEDS: *HR* LORazepam 2 MG/ML VIAL IVP ONE ×2 (02:40→02:45)
[2019-09-01] MEDS ORDERED: 0.9 % Sodium Chloride 1,000 ML IVC ONE (05:11)
[2019-09-01] MEDS ORDERED: *HR* LORazepam 2 MG/ML VIAL IVP PRN (07:37)
[2019-09-01] MEDS ORDERED: Naloxone 0.4 MG/ML INJ IVP PRN (07:48)
[2019-09-01] MEDS ORDERED: Ondansetron 4 MG/2 ML VIAL IVP PRN (07:48)
[2019-09-01] MEDS ORDERED: *HR* Dextrose 50 % in Water (Syg) 50 ML SYRINGE IVP PRN (08:01)
[2019-09-01] MEDS ORDERED: D5% in Water 1,000 ML IVC PRN (08:01)
[2019-09-01] MEDS ORDERED: Dextrose Gel 15 GM/37.5 ML TUBE PO PRN ×2 (08:01)
[2019-09-01 11:14] LABS: INR 2.9; Prothrombin Time 32.8 Seconds (9.4-12.1)
[2019-09-01] MEDS: lamoTRIgine 100 MG TABLET PO SCH ×2 (12:06→22:03)
[2019-09-01] MEDS: levETIRAcetam 250 MG TABLET PO SCH ×2 (12:07→21:57)
[2019-09-01] MEDS: Insulin LISPRO 300 UNITS/3 ML VIAL SQ SCH ×2 (12:08→16:37)
[2019-09-01] MEDS: *HR* OxyCODONE/APAP 5/325 TABLET PO PRN ×2 (14:22→22:02)
[2019-09-01] MEDS: *HR* Heparin 5,000 UNIT/ML VIAL SQ SCH ×2 (14:22→22:04)
[2019-09-01] MEDS ORDERED: Warfarin perPT PO PRN (18:00)
[2019-09-01] MEDS ORDERED: *HR* Warfarin 2 MG TABLET PO ONE (18:00)
[2019-09-01 18:02] LABS: Protein/Creatinine Ratio,Urine 1.44 mg/mg (0.00-0.20)
[2019-09-01] MEDS: Furosemide 20 MG TABLET PO SCH (21:57)
[2019-09-01] MEDS: Gabapentin 300 MG CAPSULE PO SCH (21:58)
[2019-09-01 23:10] LABS: Bilirubin,Urine Negative (Negative); Blood,Urine Negative (Negative); Clarity,Urine Clear (Clear); Color,Urine Yellow (Yellow); Glucose,Urine (UA) Normal (Normal); Ketones,Urine Negative (Negative); Leukocyte Esterase,Urine Negative (Negative); Nitrite,Urine Negative (Negative); PH,Urine 6.5 pH Units (5.0-8.0); Protein,Urine 30 mg/dL (Neg-Trace); Specific Gravity,Urine 1.011 (1.010-1.025); Urobilinogen,Urine Normal (Normal)
[2019-09-01 23:16] LABS: Bacteria,Urine None Seen per hpf (None-Few); Hyaline Casts,Urine None Seen per lpf (None-Few); RBC,Urine 0-3 per hpf (0-3); Squamous Epithelial Cell,Urine None Seen per lpf (None-Few); WBC,Urine 0-3 per hpf (0-3)
[2019-09-02] MEDS: *HR* Heparin 5,000 UNIT/ML VIAL SQ SCH ×2 (05:07→13:30)
[2019-09-02 05:35] LABS: INR 2.6; Prothrombin Time 29.1 Seconds (9.4-12.1)
[2019-09-02 05:37] LABS: Basophils % 0.2 %; Eosinophils # 0.1 K/mcL (0.0-0.6); Eosinophils % 0.9 %; Hematocrit 23.1 % (37.5-50.1); Hemoglobin 8.1 g/dL (12.9-16.9); Immature Granulocytes % 1.3 % (0-4); Lymphocytes # 0.9 K/mcL (0.6-4.6); Lymphocytes % 16.3 %; Mean Corpuscular HGB Conc 35.1 g/dL (31.6-35.5); Mean Corpuscular Hemoglobin 30.3 pg (28.0-33.3); Mean Corpuscular Volume 86.5 fL (83.0-100.0); Mean Platelet Volume 11.7 fL (9.4-12.4); Monocytes # 0.6 K/mcL (0.0-1.3); Monocytes % 11.6 %; Neutrophils # 3.7 K/mcL (1.6-8.9); Platelet Count 188 K/mcL (140-400); Red Blood Count 2.67 M/mcL (4.19-5.50); Red Cell Distribution Width 16.8 % (11.5-14.5); Segmented Neutrophils % 69.7 %; White Blood Count 5.4 K/mcL (4.3-11.1)
[2019-09-02 05:46] LABS: % Iron Saturation 16 % (20-55); Albumin 3.9 g/dL (3.5-5.7); BUN/Creatinine Ratio 18 (6-26); Blood Urea Nitrogen 23 mg/dL (6-20); Calcium 8.9 mg/dL (8.6-10.3); Carbon Dioxide 24 mEq/L (23-29); Chloride 97 mEq/L (98-107); Glucose 100 mg/dL (70-105); Iron 45 mcg/dL (65-175); Osmolality,Calculated 276 (280-300); Potassium 3.6 mEq/L (3.5-5.1); Sodium 131 mEq/L (136-145); Transferrin 204 mg/dL (203-362); eGFR For African Americans > 60 (> 60); eGFR For Non-African Americans > 60 (> 60)
[2019-09-02 05:59] LABS: Thyroid Stimulating Hormone 4.542 mcIU/mL (0.340-5.600)
[2019-09-02 06:04] LABS: Ferritin 426 ng/mL (20-250)
[2019-09-02 06:08] LABS: Folate 15.8 ng/mL (3.0-16.0)
[2019-09-02] MEDS: levETIRAcetam 250 MG TABLET PO SCH (10:23)
[2019-09-02] MEDS: Aspirin Enteric Coated 81 MG Tablet PO SCH (10:23)
[2019-09-02] MEDS: Fluconazole 100 MG TABLET PO SCH (10:24)
[2019-09-02] MEDS: lamoTRIgine 100 MG TABLET PO SCH ×2 (10:24→22:08)
[2019-09-02] MEDS: Gabapentin 300 MG CAPSULE PO SCH ×2 (10:24→22:08)
[2019-09-02] MEDS: Furosemide 20 MG TABLET PO SCH (10:24)
[2019-09-02] MEDS: Megestrol Acetate 400 MG/10 ML UDC PO SCH (10:25)
[2019-09-02] MEDS: Insulin LISPRO 300 UNITS/3 ML VIAL SQ SCH ×3 (10:34→17:41)
[2019-09-02] MEDS ORDERED: *HR* Warfarin 3 MG TABLET PO ONE (18:00)
[2019-09-02] MEDS ORDERED: Haloperidol Lactate 5 MG/ML VIAL IVP ONE (20:41)
[2019-09-02 21:36] LABS: Amphetamines NEGATIVE ng/mL (Cutoff 30); Barbiturates NEGATIVE ng/mL (Cutoff 75); Benzodiazepines NEGATIVE ng/mL (Cutoff 75); Buprenorphine NEGATIVE ng/mL (Cutoff 1); Cocaine NEGATIVE ng/mL (Cutoff 30); Methadone NEGATIVE ng/mL (Cutoff 40); Methamphetamines NEGATIVE ng/mL (Cutoff 30); Opiates NEGATIVE ng/mL (Cutoff 30); Phencyclidine NEGATIVE ng/mL (Cutoff 15)
[2019-09-02] MEDS: levETIRAcetam 1,000 MG in 0.9 % Sodium Chloride 100 ML IVPB SCH (22:01)
[2019-09-03] MEDS: *HR* OxyCODONE/APAP 5/325 TABLET PO PRN (00:17)
[2019-09-03] MEDS ORDERED: Haloperidol Lactate 5 MG/ML VIAL IVP ONE (01:03)
[2019-09-03] MEDS ORDERED: *HR* Promethazine 25 MG/ML VIAL IVP ONE (01:04)
[2019-09-03] MEDS: lamoTRIgine 100 MG TABLET PO SCH ×2 (09:27→21:36)
[2019-09-03] MEDS: Gabapentin 300 MG CAPSULE PO SCH ×2 (09:28→21:36)
[2019-09-03] MEDS: Aspirin Enteric Coated 81 MG Tablet PO SCH (09:28)
[2019-09-03] MEDS: Fluconazole 100 MG TABLET PO SCH (09:28)
[2019-09-03] MEDS: Megestrol Acetate 400 MG/10 ML UDC PO SCH (09:28)
[2019-09-03] MEDS: levETIRAcetam 1,000 MG in 0.9 % Sodium Chloride 100 ML IVPB SCH ×2 (09:30→21:36)
[2019-09-03] MEDS: Insulin LISPRO 300 UNITS/3 ML VIAL SQ SCH ×3 (09:39→17:58)
[2019-09-03 10:07] LABS: Basophils % 0.4 %; Eosinophils % 0.4 %; Hematocrit 29.3 % (37.5-50.1); Hemoglobin 10.1 g/dL (12.9-16.9); Immature Granulocytes % 0.5 % (0-4); Lymphocytes # 0.6 K/mcL (0.6-4.6); Lymphocytes % 7.5 %; Mean Corpuscular HGB Conc 34.5 g/dL (31.6-35.5); Mean Corpuscular Hemoglobin 30.3 pg (28.0-33.3); Mean Platelet Volume 10.5 fL (9.4-12.4); Monocytes # 0.8 K/mcL (0.0-1.3); Monocytes % 9.8 %; Neutrophils # 6.4 K/mcL (1.6-8.9); Platelet Count 268 K/mcL (140-400); Red Blood Count 3.33 M/mcL (4.19-5.50); Red Cell Distribution Width 16.9 % (11.5-14.5); Segmented Neutrophils % 81.4 %; White Blood Count 7.8 K/mcL (4.3-11.1)
[2019-09-03 10:25] LABS: BUN/Creatinine Ratio 15 (6-26); Blood Urea Nitrogen 18 mg/dL (6-20); Calcium 9.6 mg/dL (8.6-10.3); Carbon Dioxide 22 mEq/L (23-29); Chloride 101 mEq/L (98-107); Glucose 107 mg/dL (70-105); Osmolality,Calculated 282 (280-300); Potassium 4.1 mEq/L (3.5-5.1); Sodium 135 mEq/L (136-145); eGFR For African Americans > 60 (> 60); eGFR For Non-African Americans > 60 (> 60)
[2019-09-03] MEDS ORDERED: *HR* Warfarin 4 MG TABLET PO ONE (18:00)
[2019-09-04] MEDS: *HR* OxyCODONE/APAP 5/325 TABLET PO PRN (05:51)
[2019-09-04 06:05] LABS: INR 3.1; Prothrombin Time 35.6 Seconds (9.4-12.1)
[2019-09-04] MEDS: Gabapentin 300 MG CAPSULE PO SCH ×2 (09:55→22:30)
[2019-09-04] MEDS: Fluconazole 100 MG TABLET PO SCH (09:55)
[2019-09-04] MEDS: lamoTRIgine 100 MG TABLET PO SCH ×2 (09:55→22:29)
[2019-09-04] MEDS: Aspirin Enteric Coated 81 MG Tablet PO SCH (09:55)
[2019-09-04] MEDS: Megestrol Acetate 400 MG/10 ML UDC PO SCH (09:56)
[2019-09-04] MEDS: levETIRAcetam 1,000 MG in 0.9 % Sodium Chloride 100 ML IVPB SCH (09:57)
[2019-09-04] MEDS: Insulin LISPRO 300 UNITS/3 ML VIAL SQ SCH ×3 (09:57→16:54)
[2019-09-04] MEDS ORDERED: traMADol 50 MG TABLET PO PRN (20:00)
[2019-09-04] MEDS ORDERED: Perflutren Lipid Microsphere 1.3 ML in 0.9 % Sodium Chloride 8.7 ML IVP ONE (21:16)
[2019-09-04] MEDS ORDERED: Perflutren Lipid Microsphere 2 ML VIAL ONE (21:22)
[2019-09-04] MEDS: levETIRAcetam 250 MG TABLET PO SCH (22:30)
[2019-09-05 06:59] LABS: INR 2.1
[2019-09-05] MEDS: Insulin LISPRO 300 UNITS/3 ML VIAL SQ SCH ×3 (08:48→17:28)
[2019-09-05] MEDS: Megestrol Acetate 400 MG/10 ML UDC PO SCH (09:50)
[2019-09-05] MEDS: levETIRAcetam 250 MG TABLET PO SCH (09:50)
[2019-09-05] MEDS: Fluconazole 100 MG TABLET PO SCH (09:51)
[2019-09-05] MEDS: Gabapentin 300 MG CAPSULE PO SCH (09:51)
[2019-09-05] MEDS: lamoTRIgine 100 MG TABLET PO SCH (09:51)
[2019-09-05] MEDS: Aspirin Enteric Coated 81 MG Tablet PO SCH (09:51)
[2019-09-05 11:25] VITALS: BP 92/58
[2019-09-05] MEDS ORDERED: Furosemide 20 MG TABLET PO SCH (14:30)
[2019-09-05 15:30] LABS: BUN/Creatinine Ratio 22 (6-26); Blood Urea Nitrogen 32 mg/dL (6-20); Calcium 9.2 mg/dL (8.6-10.3); Carbon Dioxide 20 mEq/L (23-29); Chloride 104 mEq/L (98-107); Glucose 113 mg/dL (70-105); Osmolality,Calculated 288 (280-300); Potassium 5.7 mEq/L (3.5-5.1); Sodium 135 mEq/L (136-145); eGFR For African Americans > 60 (> 60); eGFR For Non-African Americans 53 (> 60)
[2019-09-05] MEDS ORDERED: *HR* Warfarin 4 MG TABLET PO ONE (18:00)
== END 2019-09-05 17:47 | disposition home or self-care (01) | DRG 100 ==
LOC: 2NENU 22:27 → EMEROOARM 22:27 → SUATTDRO 09-01 05:21 → 2NENU 09-01 06:25
PROVIDERS: ADMIT Internal Medicine; ATTEND Internal Medicine

== ENCOUNTER 2020-08-15 15:59 | Inpatient (IN) ==
[2020-08-15] MEDS ORDERED: levETIRAcetam 1,000 MG in 0.9 % Sodium Chloride 100 ML IVPB ONE (16:36)
[2020-08-15 16:58] LABS: INR 2.6; Prothrombin Time 29.1 Seconds (9.4-12.1)
[2020-08-15 17:07] LABS: Basophils # 0.1 K/mcL (0.0-0.2); Basophils % 0.3 %; Eosinophils # 0.1 K/mcL (0.0-0.6); Eosinophils % 0.4 %; Hematocrit 39.2 % (37.5-50.1); Hemoglobin 13.2 g/dL (12.9-16.9); Immature Granulocytes % 0.7 % (0-4); Lymphocytes # 0.6 K/mcL (0.6-4.6); Lymphocytes % 4.1 %; Mean Corpuscular HGB Conc 33.7 g/dL (31.6-35.5); Mean Corpuscular Hemoglobin 30.3 pg (28.0-33.3); Mean Corpuscular Volume 89.9 fL (83.0-100.0); Mean Platelet Volume 10.7 fL (9.4-12.4); Monocytes % 6.6 %; Neutrophils # 13.8 K/mcL (1.6-8.9); Platelet Count 263 K/mcL (140-400); Red Blood Count 4.36 M/mcL (4.19-5.50); Red Cell Distribution Width 13.4 % (11.5-14.5); Segmented Neutrophils % 87.9 %; White Blood Count 15.7 K/mcL (4.3-11.1)
[2020-08-15 17:19] LABS: Alanine Aminotransferase 13 Units/L (7-52); Albumin 4.4 g/dL (3.5-5.7); Albumin/Globulin Ratio 1.4 (1.1-2.2); Alkaline Phosphatase 102 Units/L (34-104); Aspartate Amino Transferase 16 Units/L (13-39); BUN/Creatinine Ratio 13 (6-26); Bilirubin,Direct 0.1 mg/dL (0.0-0.2); Bilirubin,Indirect 0.2 mg/dL (0.0-1.0); Bilirubin,Total 0.3 mg/dL (0.3-1.0); Blood Urea Nitrogen 16 mg/dL (6-20); Carbon Dioxide 23 mEq/L (23-29); Chloride 105 mEq/L (98-107); Globulin 3.1 g/dL (2.4-3.5); Glucose 167 mg/dL (70-105); Osmolality,Calculated 291 (280-300); Potassium 3.6 mEq/L (3.5-5.1); Sodium 138 mEq/L (136-145); Total Protein 7.5 g/dL (6.4-8.9); eGFR For African Americans > 60 (> 60); eGFR For Non-African Americans > 60 (> 60)
[2020-08-15] MEDS ORDERED: lamoTRIgine 100 MG TABLET PO STA (21:23)
[2020-08-15] MEDS ORDERED: Naloxone 0.4 MG/ML INJ IVP PRN (22:40)
[2020-08-15] MEDS ORDERED: 0.9 % Sodium Chloride 1,000 ML IVC SCH (22:45)
[2020-08-15 23:08] LABS: Bilirubin,Urine Negative (Negative); Blood,Urine Trace (Negative); Clarity,Urine Clear (Clear); Color,Urine Light-Yellow (Yellow); Glucose,Urine (UA) Normal (Normal); Hyaline Casts,Urine Few per lpf (None Seen); Ketones,Urine 10 mg/dL (Negative); Leukocyte Esterase,Urine Negative (Negative); Mucus,Urine Few per lpf (None-Few); Nitrite,Urine Negative (Negative); PH,Urine 6.5 pH Units (5.0-8.0); Protein,Urine >=600 mg/dL (Neg-Trace); RBC,Urine 0-3 per hpf (0-3); Specific Gravity,Urine 1.022 (1.010-1.025); Squamous Epithelial Cell,Urine Few per hpf (None-Few); Urobilinogen,Urine Normal (Normal); WBC,Urine 0-3 per hpf (0-3)
[2020-08-15 23:22] LABS: Amphetamine Screen,Urine Negative ng/mL (Cutoff=1000); Barbiturate Screen,Urine Negative ng/mL (Cutoff=200); Benzodiazepines Screen,Urine Negative ng/mL (Cutoff=200); Cannabinoid Screen,Urine Positive ng/mL (Cutoff = 50); Cocaine Screen,Urine Negative ng/mL (Cutoff= 300); Opiate Screen,Urine Negative ng/mL (Cutoff=300); Phencyclidine Screen,Urine Negative ng/mL (Cutoff=25)
[2020-08-15] MEDS: 0.9 % Sodium Chloride 1,000 ML ONE ×2 (23:26→23:29)
[2020-08-16] MEDS ORDERED: *HR* Metoprolol 5 MG/5 ML VIAL IVP ONE (00:32)
[2020-08-16] MEDS ORDERED: 0.9 % Sodium Chloride 1,000 ML IVC SCH (00:45)
[2020-08-16] MEDS ORDERED: *HR* LORazepam 2 MG/ML VIAL IVP PRN (00:47)
[2020-08-16 00:53] LABS: Hematocrit 36.2 % (37.5-50.1); Hemoglobin 12.6 g/dL (12.9-16.9); Mean Corpuscular HGB Conc 34.8 g/dL (31.6-35.5); Mean Corpuscular Volume 89.2 fL (83.0-100.0); Mean Platelet Volume 10.2 fL (9.4-12.4); Platelet Count 277 K/mcL (140-400); Red Blood Count 4.06 M/mcL (4.19-5.50); Red Cell Distribution Width 13.5 % (11.5-14.5); White Blood Count 16.1 K/mcL (4.3-11.1)
[2020-08-16 00:56] LABS: INR 2.5; Prothrombin Time 28.1 Seconds (9.4-12.1)
[2020-08-16 01:16] LABS: Alanine Aminotransferase 12 Units/L (7-52); Albumin 4.3 g/dL (3.5-5.7); Albumin/Globulin Ratio 1.3 (1.1-2.2); Alkaline Phosphatase 99 Units/L (34-104); Aspartate Amino Transferase 16 Units/L (13-39); BUN/Creatinine Ratio 15 (6-26); Bilirubin,Total 0.6 mg/dL (0.3-1.0); Blood Urea Nitrogen 17 mg/dL (6-20); Calcium 9.2 mg/dL (8.6-10.3); Carbon Dioxide 20 mEq/L (23-29); Chloride 106 mEq/L (98-107); Creatine Kinase 106 Units/L (30-223); Globulin 3.2 g/dL (2.4-3.5); Glucose 138 mg/dL (70-105); Magnesium 1.5 mg/dL (1.6-2.6); Osmolality,Calculated 292 (280-300); Potassium 3.6 mEq/L (3.5-5.1); Sodium 139 mEq/L (136-145); Total Protein 7.5 g/dL (6.4-8.9); eGFR For African Americans > 60 (> 60); eGFR For Non-African Americans > 60 (> 60)
[2020-08-16] MEDS: Ketorolac 15 MG/ML VIAL IVP PRN ×2 (05:55→20:56)
[2020-08-16] MEDS: Ondansetron 4 MG/2 ML VIAL IVP PRN (05:55)
[2020-08-16] MEDS ORDERED: carvediloL 6.25 MG TABLET PO SCH (08:00)
[2020-08-16] MEDS: Aspirin Enteric Coated 81 MG Tablet PO SCH (08:18)
[2020-08-16] MEDS: lamoTRIgine 100 MG TABLET PO SCH ×2 (08:18→20:54)
[2020-08-16] MEDS: QUEtiapine Fumarate 25 MG TABLET PO SCH ×2 (08:18→20:56)
[2020-08-16] MEDS ORDERED: Furosemide 20 MG TABLET PO SCH (09:00)
[2020-08-16] MEDS ORDERED: levETIRAcetam 250 MG TABLET PO SCH (09:00)
[2020-08-16] MEDS ORDERED: carvediloL 6.25 MG TABLET PO ONE (13:46)
[2020-08-16 14:17] LABS: Basophils % 0.2 %; Hematocrit 34.2 % (37.5-50.1); Hemoglobin 11.9 g/dL (12.9-16.9); Immature Granulocytes % 0.5 % (0-4); Lymphocytes # 0.8 K/mcL (0.6-4.6); Lymphocytes % 6.2 %; Mean Corpuscular HGB Conc 34.8 g/dL (31.6-35.5); Mean Corpuscular Hemoglobin 31.1 pg (28.0-33.3); Mean Corpuscular Volume 89.3 fL (83.0-100.0); Mean Platelet Volume 10.3 fL (9.4-12.4); Neutrophils # 10.3 K/mcL (1.6-8.9); Platelet Count 258 K/mcL (140-400); Red Blood Count 3.83 M/mcL (4.19-5.50); Red Cell Distribution Width 13.7 % (11.5-14.5); Segmented Neutrophils % 85.1 %
[2020-08-16] MEDS: 0.9 % Sodium Chloride 1,000 ML IVC SCH (14:18)
[2020-08-16] MEDS: cefTRIAXone 1,000 MG in Water for inj. (sterile) 10 ML IVP SCH (16:02)
[2020-08-16] MEDS: Azithromycin 500 MG in 0.9 % Sodium Chloride 250 ML IVPB SCH (16:05)
[2020-08-16] MEDS: carvediloL 6.25 MG TABLET PO SCH (17:18)
[2020-08-16] MEDS ORDERED: Warfarin perPT PO PRN (18:00)
[2020-08-16] MEDS ORDERED: *HR* Warfarin 3 MG TABLET PO ONE (18:00)
[2020-08-16] MEDS: levETIRAcetam 250 MG TABLET PO SCH (20:56)
[2020-08-16] MEDS: traZODone 50 MG TABLET PO SCH (20:56)
[2020-08-17 03:11] LABS: Basophils % 0.2 %; Hematocrit 32.8 % (37.5-50.1); Hemoglobin 10.9 g/dL (12.9-16.9); Immature Granulocytes % 0.3 % (0-4); Lymphocytes # 0.9 K/mcL (0.6-4.6); Mean Corpuscular HGB Conc 33.2 g/dL (31.6-35.5); Mean Corpuscular Hemoglobin 30.1 pg (28.0-33.3); Mean Corpuscular Volume 90.6 fL (83.0-100.0); Mean Platelet Volume 10.6 fL (9.4-12.4); Monocytes % 10.3 %; Neutrophils # 7.6 K/mcL (1.6-8.9); Platelet Count 233 K/mcL (140-400); Red Blood Count 3.62 M/mcL (4.19-5.50); Segmented Neutrophils % 80.2 %; White Blood Count 9.4 K/mcL (4.3-11.1)
[2020-08-17 03:16] LABS: INR 3.2; Prothrombin Time 35.7 Seconds (9.4-12.1)
[2020-08-17 03:25] LABS: BUN/Creatinine Ratio 17 (6-26); Blood Urea Nitrogen 24 mg/dL (6-20); Calcium 8.8 mg/dL (8.6-10.3); Carbon Dioxide 21 mEq/L (23-29); Chloride 110 mEq/L (98-107); Glucose 122 mg/dL (70-105); Magnesium 1.9 mg/dL (1.6-2.6); Osmolality,Calculated 297 (280-300); Phosphorous 1.7 mg/dL (2.7-4.5); Potassium 3.4 mEq/L (3.5-5.1); Sodium 141 mEq/L (136-145); eGFR For African Americans > 60 (> 60); eGFR For Non-African Americans 54 (> 60)
[2020-08-17] MEDS: Tiotropium 18 MCG inhalation IH SCH (08:02)
[2020-08-17] MEDS: 0.9 % Sodium Chloride 1,000 ML IVC SCH ×3 (08:46→20:24)
[2020-08-17] MEDS: Aspirin Enteric Coated 81 MG Tablet PO SCH (08:47)
[2020-08-17] MEDS: QUEtiapine Fumarate 25 MG TABLET PO SCH ×2 (08:47→20:29)
[2020-08-17] MEDS: lamoTRIgine 100 MG TABLET PO SCH ×2 (08:47→20:29)
[2020-08-17] MEDS: levETIRAcetam 250 MG TABLET PO SCH ×2 (08:48→20:28)
[2020-08-17] MEDS: carvediloL 6.25 MG TABLET PO SCH ×2 (08:48→16:12)
[2020-08-17 09:49] LABS: Adenovirus Not Detected (Not Detect); Bordetella Pertussis Not Detected (Not Detect); Chlamydophila pneumoniae Not Detected (Not Detect); Coronavirus 229E Not Detected (Not Detect); Coronavirus HKU1 Not Detected (Not Detect); Coronavirus NL63 Not Detected (Not Detect); Coronavirus OC43 Not Detected (Not Detect); Human Metapneumovirus Not Detected (Not Detect); Human Rhinovirus/Enterovirus Not Detected (Not Detect); Influenza A Subtype 2009 H1 Not Detected (Not Detect); Influenza B Not Detected (Not Detect); Mycoplasma pneumoniae Not Detected (Not Detect); Parainfluenza Virus 1 Not Detected (Not Detect); Parainfluenza Virus 2 Not Detected (Not Detect); Parainfluenza Virus 3 Not Detected (Not Detect); Parainfluenza Virus 4 Not Detected (Not Detect); Respiratory Syncytial Virus Not Detected (Not Detect); SARS-CoV-2 Not Detected (Not Detect)
[2020-08-17] MEDS: Azithromycin 500 MG in 0.9 % Sodium Chloride 250 ML IVPB SCH (16:08)
[2020-08-17] MEDS: cefTRIAXone 1,000 MG in Water for inj. (sterile) 10 ML IVP SCH (16:10)
[2020-08-17] MEDS: Ketorolac 15 MG/ML VIAL IVP PRN ×2 (16:38→20:27)
[2020-08-17] MEDS ORDERED: *HR* Warfarin 1 MG TABLET PO ONE (18:00)
[2020-08-17] MEDS: traZODone 50 MG TABLET PO SCH (20:35)
[2020-08-17] MEDS: Ondansetron 4 MG/2 ML VIAL IVP PRN (20:40)
[2020-08-18 02:51] LABS: INR 5.2; Prothrombin Time 57.7 Seconds (9.4-12.1)
[2020-08-18] MEDS: lamoTRIgine 100 MG TABLET PO SCH ×2 (08:10→21:48)
[2020-08-18] MEDS: levETIRAcetam 250 MG TABLET PO SCH ×2 (08:10→21:50)
[2020-08-18] MEDS: Aspirin Enteric Coated 81 MG Tablet PO SCH (08:11)
[2020-08-18] MEDS: carvediloL 6.25 MG TABLET PO SCH ×2 (08:11→17:00)
[2020-08-18] MEDS: QUEtiapine Fumarate 25 MG TABLET PO SCH ×2 (08:11→21:48)
[2020-08-18] MEDS: Ketorolac 15 MG/ML VIAL IVP PRN ×2 (08:14→17:13)
[2020-08-18 09:22] LABS: Basophils % 0.1 %; Eosinophils % 0.1 %; Hematocrit 29.3 % (37.5-50.1); Hemoglobin 9.6 g/dL (12.9-16.9); Immature Granulocytes % 0.2 % (0-4); Lymphocytes # 0.6 K/mcL (0.6-4.6); Lymphocytes % 7.3 %; Mean Corpuscular HGB Conc 32.8 g/dL (31.6-35.5); Mean Corpuscular Hemoglobin 30.4 pg (28.0-33.3); Mean Corpuscular Volume 92.7 fL (83.0-100.0); Mean Platelet Volume 10.5 fL (9.4-12.4); Monocytes # 0.6 K/mcL (0.0-1.3); Monocytes % 7.1 %; Platelet Count 199 K/mcL (140-400); Red Blood Count 3.16 M/mcL (4.19-5.50); Segmented Neutrophils % 85.2 %; White Blood Count 8.2 K/mcL (4.3-11.1)
[2020-08-18 09:40] LABS: BUN/Creatinine Ratio 12 (6-26); Blood Urea Nitrogen 17 mg/dL (6-20); Calcium 8.3 mg/dL (8.6-10.3); Carbon Dioxide 20 mEq/L (23-29); Chloride 109 mEq/L (98-107); Glucose 173 mg/dL (70-105); Osmolality,Calculated 296 (280-300); Potassium 3.3 mEq/L (3.5-5.1); Sodium 140 mEq/L (136-145); eGFR For African Americans > 60 (> 60); eGFR For Non-African Americans 57 (> 60)
[2020-08-18] MEDS: cefTRIAXone 1,000 MG in Water for inj. (sterile) 10 ML IVP SCH (16:59)
[2020-08-18] MEDS: Azithromycin 500 MG in 0.9 % Sodium Chloride 250 ML IVPB SCH (17:00)
[2020-08-18] MEDS: traZODone 50 MG TABLET PO SCH (21:48)
[2020-08-19 03:18] LABS: Basophils % 0.2 %; Eosinophils % 0.2 %; Hematocrit 25.5 % (37.5-50.1); Hemoglobin 8.3 g/dL (12.9-16.9); Immature Granulocytes % 0.3 % (0-4); Lymphocytes # 0.7 K/mcL (0.6-4.6); Lymphocytes % 11.5 %; Mean Corpuscular HGB Conc 32.5 g/dL (31.6-35.5); Mean Corpuscular Hemoglobin 30.2 pg (28.0-33.3); Mean Corpuscular Volume 92.7 fL (83.0-100.0); Mean Platelet Volume 11.1 fL (9.4-12.4); Monocytes # 0.5 K/mcL (0.0-1.3); Monocytes % 8.1 %; Platelet Count 160 K/mcL (140-400); Red Blood Count 2.75 M/mcL (4.19-5.50); Red Cell Distribution Width 13.9 % (11.5-14.5); Segmented Neutrophils % 79.7 %; White Blood Count 6.3 K/mcL (4.3-11.1)
[2020-08-19 03:31] LABS: INR 4.9; Prothrombin Time 53.8 Seconds (9.4-12.1)
[2020-08-19 03:55] LABS: BUN/Creatinine Ratio 13 (6-26); Blood Urea Nitrogen 18 mg/dL (6-20); Calcium 7.9 mg/dL (8.6-10.3); Carbon Dioxide 19 mEq/L (23-29); Chloride 110 mEq/L (98-107); Ferritin 256 ng/mL (20-250); Glucose 117 mg/dL (70-105); Iron < 10 mcg/dL (65-175); Osmolality,Calculated 293 (280-300); Sodium 140 mEq/L (136-145); Transferrin 135 mg/dL (203-362); eGFR For African Americans > 60 (> 60); eGFR For Non-African Americans 55 (> 60)
[2020-08-19 04:06] LABS: Folate > 22.3 ng/mL (3.0-16.0); Vitamin B12 172 pg/mL (250-1100)
[2020-08-19] MEDS: Tiotropium 18 MCG inhalation IH SCH ×2 (07:46→07:47)
[2020-08-19] MEDS ORDERED: Cyanocobalamin (B-12) 1,000 MCG/ML VIAL SQ ONE (07:51)
[2020-08-19] MEDS ORDERED: Sodium Bicarbonate 75 MEQ in 0.45 % Sodium Chloride 1,000 ML IVC SCH (08:00)
[2020-08-19] MEDS: Ondansetron 4 MG/2 ML VIAL IVP PRN (09:02)
[2020-08-19] MEDS: QUEtiapine Fumarate 25 MG TABLET PO SCH ×2 (09:03→21:38)
[2020-08-19] MEDS: levETIRAcetam 250 MG TABLET PO SCH ×2 (09:03→21:38)
[2020-08-19] MEDS: carvediloL 6.25 MG TABLET PO SCH ×2 (09:04→16:58)
[2020-08-19] MEDS: lamoTRIgine 100 MG TABLET PO SCH ×2 (09:04→21:39)
[2020-08-19] MEDS: Aspirin Enteric Coated 81 MG Tablet PO SCH (09:04)
[2020-08-19] MEDS: cefTRIAXone 1,000 MG in Water for inj. (sterile) 10 ML IVP SCH (16:56)
[2020-08-19] MEDS: Azithromycin 500 MG in 0.9 % Sodium Chloride 250 ML IVPB SCH (16:57)
[2020-08-19] MEDS: Ketorolac 15 MG/ML VIAL IVP PRN (16:57)
[2020-08-19] MEDS: traZODone 50 MG TABLET PO SCH (21:39)
[2020-08-20] MEDS: Cyanocobalamin (B-12) 1,000 MCG TABLET PO SCH (08:27)
[2020-08-20] MEDS: lamoTRIgine 100 MG TABLET PO SCH ×2 (08:27→20:48)
[2020-08-20] MEDS: QUEtiapine Fumarate 25 MG TABLET PO SCH ×2 (08:27→20:48)
[2020-08-20] MEDS: levETIRAcetam 250 MG TABLET PO SCH ×2 (08:28→20:48)
[2020-08-20] MEDS: carvediloL 6.25 MG TABLET PO SCH ×2 (08:28→16:15)
[2020-08-20] MEDS: Aspirin Enteric Coated 81 MG Tablet PO SCH (08:28)
[2020-08-20 08:36] LABS: Basophils % 0.2 %; Eosinophils % 0.3 %; Hematocrit 23.1 % (37.5-50.1); Hemoglobin 7.6 g/dL (12.9-16.9); Immature Granulocytes % 0.7 % (0-4); Lymphocytes # 0.5 K/mcL (0.6-4.6); Lymphocytes % 8.2 %; Mean Corpuscular HGB Conc 32.9 g/dL (31.6-35.5); Mean Corpuscular Hemoglobin 30.3 pg (28.0-33.3); Mean Platelet Volume 10.7 fL (9.4-12.4); Monocytes # 0.5 K/mcL (0.0-1.3); Monocytes % 8.8 %; Platelet Count 158 K/mcL (140-400); Red Blood Count 2.51 M/mcL (4.19-5.50); Segmented Neutrophils % 81.8 %; White Blood Count 6.1 K/mcL (4.3-11.1)
[2020-08-20] MEDS: Ketorolac 15 MG/ML VIAL IVP PRN (08:39)
[2020-08-20 08:44] LABS: INR 3.6; Prothrombin Time 39.8 Seconds (9.4-12.1)
[2020-08-20 08:53] LABS: Calcium 7.8 mg/dL (8.6-10.3); Magnesium 1.4 mg/dL (1.6-2.6); Phosphorous 2.2 mg/dL (2.7-4.5)
[2020-08-20] MEDS ORDERED: Iron Sucrose Complex 400 MG in 0.9 % Sodium Chloride 250 ML IVPB ONE (11:22)
[2020-08-20] MEDS ORDERED: Cyanocobalamin (B-12) 1,000 MCG/ML VIAL IM ONE (13:37)
[2020-08-20] MEDS: cefTRIAXone 1,000 MG in Water for inj. (sterile) 10 ML IVP SCH (16:08)
[2020-08-20] MEDS: Azithromycin 500 MG in 0.9 % Sodium Chloride 250 ML IVPB SCH (16:11)
[2020-08-20] MEDS ORDERED: Furosemide 40 MG in 0.9 % Sodium Chloride 50 ML IV ONE (16:25)
[2020-08-20] MEDS ORDERED: Furosemide 40 MG/4 ML VIAL IVP ONE (16:28)
[2020-08-20] MEDS: traZODone 50 MG TABLET PO SCH (20:48)
[2020-08-21] MEDS ORDERED: 0.9 % Sodium Chloride 250 ML ONE (00:49)
[2020-08-21 06:19] LABS: Eosinophils % 0.5 %; Hematocrit 24.9 % (37.5-50.1); Immature Granulocytes % 0.6 % (0-4); Lymphocytes # 0.4 K/mcL (0.6-4.6); Lymphocytes % 6.5 %; Mean Corpuscular HGB Conc 32.1 g/dL (31.6-35.5); Mean Corpuscular Hemoglobin 29.9 pg (28.0-33.3); Mean Corpuscular Volume 92.9 fL (83.0-100.0); Monocytes # 0.6 K/mcL (0.0-1.3); Monocytes % 9.1 %; Neutrophils # 5.5 K/mcL (1.6-8.9); Platelet Count 172 K/mcL (140-400); Red Blood Count 2.68 M/mcL (4.19-5.50); Red Cell Distribution Width 14.2 % (11.5-14.5); Segmented Neutrophils % 83.3 %; White Blood Count 6.6 K/mcL (4.3-11.1)
[2020-08-21 06:39] LABS: Calcium 7.9 mg/dL (8.6-10.3); Magnesium 1.6 mg/dL (1.6-2.6); Phosphorous 2.3 mg/dL (2.7-4.5); Potassium 3.3 mEq/L (3.5-5.1)
[2020-08-21] MEDS: Tiotropium 18 MCG inhalation IH SCH (07:52)
[2020-08-21] MEDS: Cyanocobalamin (B-12) 1,000 MCG TABLET PO SCH (08:36)
[2020-08-21] MEDS: QUEtiapine Fumarate 25 MG TABLET PO SCH ×2 (08:36→21:22)
[2020-08-21] MEDS: Aspirin Enteric Coated 81 MG Tablet PO SCH (08:36)
[2020-08-21] MEDS: carvediloL 6.25 MG TABLET PO SCH ×2 (08:36→15:59)
[2020-08-21] MEDS: levETIRAcetam 250 MG TABLET PO SCH ×2 (08:36→21:21)
[2020-08-21] MEDS: lamoTRIgine 100 MG TABLET PO SCH ×2 (08:36→21:20)
[2020-08-21] MEDS ORDERED: Furosemide 40 MG/4 ML VIAL IVP SCH (09:00)
[2020-08-21] MEDS ORDERED: Potassium Phosphate 44 MEQ in 0.9 % Sodium Chloride 250 ML IVPB ONE (10:48)
[2020-08-21 12:55] LABS: INR 3.1; Prothrombin Time 35.1 Seconds (9.4-12.1)
[2020-08-21] MEDS ORDERED: 0.9 % Sodium Chloride 250 ML IVC SCH (14:15)
[2020-08-21] MEDS: methylPREDNISolone 125 MG/2 ML VIAL IVP SCH ×2 (14:56→23:51)
[2020-08-21] MEDS ORDERED: SODIUM CHLORIDE/NAHCO3/KCL/PEG 4,000 ML SOLN.RECON PO ONE (17:00)
[2020-08-21 17:27] LABS: Adenovirus Not Detected (Not Detect); Bordetella Pertussis Not Detected (Not Detect); Chlamydophila pneumoniae Not Detected (Not Detect); Coronavirus 229E Not Detected (Not Detect); Coronavirus HKU1 Not Detected (Not Detect); Coronavirus NL63 Not Detected (Not Detect); Coronavirus OC43 Not Detected (Not Detect); Human Metapneumovirus Not Detected (Not Detect); Human Rhinovirus/Enterovirus Not Detected (Not Detect); Influenza A Subtype 2009 H1 Not Detected (Not Detect); Influenza B Not Detected (Not Detect); Mycoplasma pneumoniae Not Detected (Not Detect); Parainfluenza Virus 1 Not Detected (Not Detect); Parainfluenza Virus 2 Not Detected (Not Detect); Parainfluenza Virus 3 Not Detected (Not Detect); Parainfluenza Virus 4 Not Detected (Not Detect); Respiratory Syncytial Virus Not Detected (Not Detect); SARS-CoV-2 Not Detected (Not Detect)
[2020-08-21 17:28] LABS: Complement C3 135 mg/dL (87-200)
[2020-08-21] MEDS: traZODone 50 MG TABLET PO SCH (21:22)
[2020-08-22] MEDS ORDERED: Ketorolac 15 MG/ML VIAL IVP PRN (00:44)
[2020-08-22 03:01] LABS: Immature Granulocytes % 0.3 % (0-4); Lymphocytes # 0.3 K/mcL (0.6-4.6); Lymphocytes % 4.8 %; Mean Corpuscular HGB Conc 32.1 g/dL (31.6-35.5); Mean Corpuscular Hemoglobin 29.8 pg (28.0-33.3); Mean Corpuscular Volume 92.7 fL (83.0-100.0); Monocytes # 0.3 K/mcL (0.0-1.3); Neutrophils # 5.4 K/mcL (1.6-8.9); Platelet Count 204 K/mcL (140-400); Red Blood Count 3.02 M/mcL (4.19-5.50); Red Cell Distribution Width 14.4 % (11.5-14.5); Segmented Neutrophils % 89.9 %
[2020-08-22 03:24] LABS: Calcium 8.9 mg/dL (8.6-10.3); Magnesium 1.6 mg/dL (1.6-2.6); Phosphorous 2.4 mg/dL (2.7-4.5); Potassium 3.7 mEq/L (3.5-5.1)
[2020-08-22 09:46] LABS: INR 2.8; Prothrombin Time 31.7 Seconds (9.4-12.1)
[2020-08-22] MEDS: Aspirin Enteric Coated 81 MG Tablet PO SCH (09:57)
[2020-08-22] MEDS: carvediloL 6.25 MG TABLET PO SCH ×2 (09:57→16:05)
[2020-08-22] MEDS: levETIRAcetam 250 MG TABLET PO SCH ×2 (09:57→20:20)
[2020-08-22] MEDS: methylPREDNISolone 125 MG/2 ML VIAL IVP SCH ×2 (09:59→16:06)
[2020-08-22] MEDS: QUEtiapine Fumarate 25 MG TABLET PO SCH ×2 (09:59→20:20)
[2020-08-22] MEDS: Cyanocobalamin (B-12) 1,000 MCG/ML VIAL SQ SCH (09:59)
[2020-08-22] MEDS: lamoTRIgine 100 MG TABLET PO SCH ×2 (09:59→20:20)
[2020-08-22] MEDS ORDERED: *HR* Phytonadione 5 MG TABLET PO ONE (12:35)
[2020-08-22] MEDS ORDERED: 0.9 % Sodium Chloride 250 ML IVC SCH (13:45)
[2020-08-22] MEDS ORDERED: SODIUM CHLORIDE/NAHCO3/KCL/PEG 4,000 ML SOLN.RECON PO ONE (17:00)
[2020-08-22] MEDS: traZODone 50 MG TABLET PO SCH (20:20)
[2020-08-23] MEDS: methylPREDNISolone 125 MG/2 ML VIAL IVP SCH ×2 (03:39→07:28)
[2020-08-23 04:17] LABS: Basophils % 0.1 %; Hematocrit 28.3 % (37.5-50.1); Hemoglobin 9.1 g/dL (12.9-16.9); Immature Granulocytes % 0.5 % (0-4); Lymphocytes # 0.4 K/mcL (0.6-4.6); Lymphocytes % 3.8 %; Mean Corpuscular HGB Conc 32.2 g/dL (31.6-35.5); Mean Corpuscular Hemoglobin 29.5 pg (28.0-33.3); Mean Corpuscular Volume 91.9 fL (83.0-100.0); Mean Platelet Volume 11.1 fL (9.4-12.4); Monocytes # 0.8 K/mcL (0.0-1.3); Monocytes % 8.4 %; Nucleated Red Blood Cells 0.2 /100 WBC (0); Platelet Count 167 K/mcL (140-400); Red Blood Count 3.08 M/mcL (4.19-5.50); Red Cell Distribution Width 14.4 % (11.5-14.5); Segmented Neutrophils % 87.2 %
[2020-08-23 04:18] LABS: White Blood Count 9.2 K/mcL (4.3-11.1)
[2020-08-23 04:19] LABS: INR 1.8; Prothrombin Time 20.9 Seconds (9.4-12.1)
[2020-08-23 04:20] LABS: INR 1.8; Prothrombin Time 20.2 Seconds (9.4-12.1)
[2020-08-23 04:34] LABS: Calcium 8.5 mg/dL (8.6-10.3); Magnesium 1.7 mg/dL (1.6-2.6); Phosphorous 3.7 mg/dL (2.7-4.5); Potassium 3.2 mEq/L (3.5-5.1)
[2020-08-23] MEDS: levETIRAcetam 250 MG TABLET PO SCH (07:27)
[2020-08-23] MEDS: lamoTRIgine 100 MG TABLET PO SCH (07:28)
[2020-08-23] MEDS: carvediloL 6.25 MG TABLET PO SCH (07:28)
[2020-08-23] MEDS: Cyanocobalamin (B-12) 1,000 MCG/ML VIAL SQ SCH (07:28)
[2020-08-23] MEDS ORDERED: 0.9 % Sodium Chloride 1,000 ML IVC SCH (08:30)
[2020-08-23] MEDS ORDERED: Furosemide 40 MG TABLET PO SCH (09:00)
[2020-08-23] MEDS ORDERED: *HR* FentaNYL (PF) 100 MCG/2 ML VIAL ONE (09:08)
[2020-08-23] MEDS: QUEtiapine Fumarate 25 MG TABLET PO SCH (10:22)
[2020-08-23] MEDS: Aspirin Enteric Coated 81 MG Tablet PO SCH (10:22)
[2020-08-23 11:03] VITALS: BP 109/77
[2020-08-23] MEDS ORDERED: FLU Vac QV 20-21 (6Month+)/PF 0.5 ML SYRINGE IM ONE (15:04)
[2020-08-24 13:01] LABS: Appearance of Body Fluid Slightly Hazy (Clear); Volume of Body Fluid 20 mL
[2020-08-24 13:02] LABS: Appearance of Body Fluid Slightly Hazy (Clear); Volume of Body Fluid 20 mL
[2020-08-24 18:19] LABS: Tissue Transglutaminase IgG <2 U/mL (0-5)
[2020-08-25 09:24] LABS: ANA IgG by ELISA NONE DETECTED (None Detected); Serine Protease-3 Antibody 5 AU/mL (0-19)
[2020-08-28 09:55] LABS: Influenza A PCR Body Fluid NOT DETECTED; Influenza B PCR Body Fluid NOT DETECTED; RVP Body Fluid Source BAL
[2020-08-28 09:55] LABS: Influenza A PCR Body Fluid NOT DETECTED; Influenza B PCR Body Fluid NOT DETECTED; RVP Body Fluid Source BAL
[2020-08-28 10:57] LABS: RSV PCR Body Fluid NOT DETECTED
[2020-08-28 10:58] LABS: RSV PCR Body Fluid NOT DETECTED
== END 2020-08-23 16:28 | disposition home or self-care (01) | DRG 100 ==
LOC: EMEROOARM 15:59 → 3BNU 15:59 → SUATTDRO 21:59 → 3BNU 22:30 → SUATTDRO 08-16 15:16 → 3ANU 08-19 13:11
PROVIDERS: ADMIT Student in an Organized Health Care Education/Training Program; ATTEND Internal Medicine
PROC: ENDOEBX (2020-08-23 08:00)

== ENCOUNTER 2021-05-20 17:16 | Inpatient (IN) ==
[2021-05-20] MEDS ORDERED: Isovue-370 500 ML BOTTLE IVP ONE (17:24)
[2021-05-20 17:53] LABS: Hemoglobin 11.1 g/dL (12.9-16.9)
[2021-05-20 17:55] LABS: Hematocrit 32.5 % (37.5-50.1); Immature Platelets 7.8 % (1.1-6.1); Mean Corpuscular HGB Conc 34.2 g/dL (31.6-35.5); Mean Corpuscular Hemoglobin 30.8 pg (28.0-33.3); Mean Corpuscular Volume 90.3 fL (83.0-100.0); Mean Platelet Volume 10.6 fL (9.4-12.4); Red Blood Count 3.6 M/mcL (4.19-5.50); Red Cell Distribution Width 12.6 % (11.5-14.5)
[2021-05-20] MEDS ORDERED: 0.9 % Sodium Chloride 1,000 ML ONE (17:58)
[2021-05-20 18:01] LABS: INR 2.4; Prothrombin Time 27.1 Seconds (9.4-12.1)
[2021-05-20 18:04] LABS: Activated Partial Thrombo Time 97.4 Seconds (26.0-36.0)
[2021-05-20 18:12] LABS: BUN/Creatinine Ratio 9 (6-26); Blood Urea Nitrogen 16 mg/dL (6-20); Calcium 9.3 mg/dL (8.6-10.3); Carbon Dioxide 27 mEq/L (23-29); Chloride 104 mEq/L (98-107); Ethanol < 10 mg/dL (Less than 10); Glucose 82 mg/dL (70-105); Osmolality,Calculated 284 (280-300); Potassium 3.9 mEq/L (3.5-5.1); Sodium 137 mEq/L (136-145); eGFR For African Americans 54 (> 60); eGFR For Non-African Americans 44 (> 60)
[2021-05-20 18:13] LABS: Troponin I < 0.03 ng/mL (< 0.04)
[2021-05-20 19:29] LABS: Bilirubin,Urine Negative (Negative); Blood,Urine Negative (Negative); Clarity,Urine Clear (Clear); Color,Urine Colorless (Yellow); Glucose,Urine (UA) Normal (Normal); Ketones,Urine Negative (Negative); Leukocyte Esterase,Urine Negative (Negative); Nitrite,Urine Negative (Negative); PH,Urine 6.5 pH Units (5.0-8.0); Protein,Urine Trace mg/dL (Neg-Trace); Specific Gravity,Urine 1.005 (1.010-1.025); Urobilinogen,Urine Normal (Normal)
[2021-05-20] MEDS ORDERED: Naloxone 0.4 MG/ML INJ IVP PRN (19:50)
[2021-05-20] MEDS ORDERED: Ondansetron 4 MG/2 ML VIAL IVP PRN (19:50)
[2021-05-20] MEDS ORDERED: Perflutren Lipid Microsphere 1.3 ML in 0.9 % Sodium Chloride 8.7 ML IVP PRN (19:57)
[2021-05-20] MEDS ORDERED: Warfarin 2.5 MG, Warfarin 2 MG PO ONE (21:00)
[2021-05-20] MEDS: 0.9 % Sodium Chloride 1,000 ML IVC SCH (22:52)
[2021-05-20] MEDS ORDERED: Aspirin 81 MG TAB.CHEW PO STA (22:58)
[2021-05-20] MEDS: lamoTRIgine 100 MG TABLET PO SCH (23:24)
[2021-05-20] MEDS: levETIRAcetam 250 MG TABLET PO SCH (23:25)
[2021-05-21] MEDS: traZODone 50 MG TABLET PO SCH ×2 (01:09→20:20)
[2021-05-21 01:44] LABS: Hematocrit 31.6 % (37.5-50.1); Hemoglobin 10.8 g/dL (12.9-16.9); Immature Platelets 7.3 % (1.1-6.1); Mean Corpuscular HGB Conc 34.2 g/dL (31.6-35.5); Mean Corpuscular Hemoglobin 30.8 pg (28.0-33.3); Mean Platelet Volume 11.5 fL (9.4-12.4); Platelet Count 83 K/mcL (140-400); Red Blood Count 3.51 M/mcL (4.19-5.50); Red Cell Distribution Width 12.6 % (11.5-14.5); White Blood Count 5.7 K/mcL (4.3-11.1)
[2021-05-21 01:49] LABS: INR 2.4; Prothrombin Time 27.3 Seconds (9.4-12.1)
[2021-05-21 01:52] LABS: Estimated Average Glucose 114 mg/dl; Hemoglobin A1C 5.6 %
[2021-05-21 02:06] LABS: Calcium 8.9 mg/dL (8.6-10.3); Chol/HDL Ratio 6.4 (0-4.9); Potassium 3.6 mEq/L (3.5-5.1)
[2021-05-21 02:18] LABS: Thyroid Stimulating Hormone 2.861 mcIU/mL (0.340-5.600)
[2021-05-21 02:43] LABS: Folate > 22.3 ng/mL (3.0-16.0); Vitamin B12 371 pg/mL (250-1100)
[2021-05-21] MEDS: Tiotropium 10 INH DOSE IH SCH (10:10)
[2021-05-21] MEDS: carvediloL 6.25 MG TABLET PO SCH ×2 (10:35→20:18)
[2021-05-21] MEDS: lamoTRIgine 100 MG TABLET PO SCH ×2 (10:35→20:15)
[2021-05-21] MEDS: levETIRAcetam 250 MG TABLET PO SCH ×2 (10:35→20:20)
[2021-05-21] MEDS: QUEtiapine Fumarate 25 MG TABLET PO SCH ×2 (10:35→20:19)
[2021-05-21] MEDS: 0.9 % Sodium Chloride 1,000 ML IVC SCH (11:33)
[2021-05-21] MEDS: Aspirin 81 MG TAB.CHEW PO SCH (11:36)
[2021-05-21 13:53] LABS: Pathologist Blood Smear Review Corrected Result
[2021-05-21 14:06] LABS: Albumin 4.1 g/dL (3.5-5.7); Albumin/Globulin Ratio 1.6 (1.1-2.2); Basophils % 0.5 %; Bilirubin,Direct 0.1 mg/dL (0.0-0.2); Bilirubin,Indirect 0.3 mg/dL (0.0-1.0); Bilirubin,Total 0.4 mg/dL (0.3-1.0); Eosinophils # 0.1 K/mcL (0.0-0.6); Eosinophils % 1.6 %; Globulin 2.5 g/dL (2.4-3.5); Immature Granulocytes % 0.5 % (0-4); Lymphocytes # 0.8 K/mcL (0.6-4.6); Lymphocytes % 14.4 %; Monocytes # 0.6 K/mcL (0.0-1.3); Monocytes % 9.7 %; Neutrophils # 4.2 K/mcL (1.6-8.9); Segmented Neutrophils % 73.3 %; Total Protein 6.6 g/dL (6.4-8.9)
[2021-05-21] MEDS ORDERED: *HR* Warfarin 5 MG TABLET PO ONE (18:00)
[2021-05-21] MEDS ORDERED: Warfarin perPT PO PRN (18:00)
[2021-05-21] MEDS ORDERED: Warfarin 2.5 MG, Warfarin 2 MG PO ONE (18:00)
[2021-05-21] MEDS: Gabapentin 300 MG CAPSULE PO SCH (20:18)
[2021-05-22] MEDS: 0.9 % Sodium Chloride 1,000 ML IVC SCH ×2 (00:20→15:04)
[2021-05-22 00:57] LABS: Amphetamine Screen,Urine Negative ng/mL (Cutoff=1000); Barbiturate Screen,Urine Negative ng/mL (Cutoff=200); Benzodiazepines Screen,Urine Negative ng/mL (Cutoff=200); Cannabinoid Screen,Urine Positive ng/mL (Cutoff = 50); Cocaine Screen,Urine Negative ng/mL (Cutoff= 300); Opiate Screen,Urine Negative ng/mL (Cutoff=300); Phencyclidine Screen,Urine Negative ng/mL (Cutoff=25)
[2021-05-22 06:08] LABS: Immature Granulocytes % 0.3 % (0-4)
[2021-05-22 06:10] LABS: Basophils % 0.3 %; Eosinophils # 0.1 K/mcL (0.0-0.6); Eosinophils % 1.5 %; Hematocrit 28.7 % (37.5-50.1); Lymphocytes # 0.7 K/mcL (0.6-4.6); Lymphocytes % 10.3 %; Mean Corpuscular HGB Conc 34.8 g/dL (31.6-35.5); Mean Corpuscular Hemoglobin 31.4 pg (28.0-33.3); Mean Corpuscular Volume 90.3 fL (83.0-100.0); Mean Platelet Volume 11.3 fL (9.4-12.4); Monocytes # 0.7 K/mcL (0.0-1.3); Monocytes % 9.8 %; Neutrophils # 5.2 K/mcL (1.6-8.9); Red Blood Count 3.18 M/mcL (4.19-5.50); Red Cell Distribution Width 12.6 % (11.5-14.5); Segmented Neutrophils % 77.8 %; White Blood Count 6.7 K/mcL (4.3-11.1)
[2021-05-22 06:12] LABS: Platelet Count 92 K/mcL (140-400)
[2021-05-22 06:21] LABS: INR 4.3; Prothrombin Time 48.1 Seconds (9.4-12.1)
[2021-05-22 06:38] LABS: Calcium 8.5 mg/dL (8.6-10.3); Magnesium 1.6 mg/dL (1.6-2.6); Phosphorous 2.2 mg/dL (2.7-4.5); Potassium 3.6 mEq/L (3.5-5.1)
[2021-05-22] MEDS: Tiotropium 10 INH DOSE IH SCH (07:43)
[2021-05-22] MEDS: QUEtiapine Fumarate 25 MG TABLET PO SCH ×2 (08:00→19:43)
[2021-05-22] MEDS: Aspirin 81 MG TAB.CHEW PO SCH (08:01)
[2021-05-22] MEDS: carvediloL 6.25 MG TABLET PO SCH ×2 (08:01→19:42)
[2021-05-22] MEDS: lamoTRIgine 100 MG TABLET PO SCH ×2 (08:01→19:44)
[2021-05-22] MEDS: Gabapentin 300 MG CAPSULE PO SCH ×2 (08:01→19:43)
[2021-05-22] MEDS: levETIRAcetam 250 MG TABLET PO SCH ×2 (08:01→19:44)
[2021-05-22] MEDS ORDERED: Lidocaine Viscous Oral Soln 15 ML SOLUTION MM PRN (13:06)
[2021-05-22] MEDS ORDERED: 0.9 % Sodium Chloride 500 ML IVC ONE (13:07)
[2021-05-22] MEDS: *HR* FentaNYL (PF) 100 MCG/2 ML VIAL IVP PRN ×4 (13:40→13:55)
[2021-05-22] MEDS: *HR* Midazolam HCl 5 MG/5 ML VIAL IVP PRN ×4 (13:40→13:55)
[2021-05-22] MEDS: Cefepime HCl 2,000 MG in 0.9 % Sodium Chloride Mini Bag 100 ML IVPB SCH (16:03)
[2021-05-22] MEDS: Vancomycin 1,250 MG/262.5 ML IV.SOLN IVPB SCH (16:42)
[2021-05-22] MEDS: Acetaminophen 325 MG TABLET PO PRN (17:56)
[2021-05-22] MEDS: traZODone 50 MG TABLET PO SCH (19:43)
[2021-05-23 01:58] LABS: Basophils % 0.2 %; Eosinophils % 0.2 %; Hematocrit 30.2 % (37.5-50.1); Hemoglobin 10.3 g/dL (12.9-16.9); Immature Granulocytes % 0.6 % (0-4); Lymphocytes # 0.6 K/mcL (0.6-4.6); Lymphocytes % 5.3 %; Mean Corpuscular HGB Conc 34.1 g/dL (31.6-35.5); Mean Corpuscular Hemoglobin 30.8 pg (28.0-33.3); Mean Corpuscular Volume 90.4 fL (83.0-100.0); Mean Platelet Volume 11.2 fL (9.4-12.4); Monocytes # 0.9 K/mcL (0.0-1.3); Monocytes % 7.4 %; Neutrophils # 10.2 K/mcL (1.6-8.9); Platelet Count 114 K/mcL (140-400); Red Blood Count 3.34 M/mcL (4.19-5.50); Red Cell Distribution Width 12.7 % (11.5-14.5); Segmented Neutrophils % 86.3 %
[2021-05-23 01:59] LABS: White Blood Count 11.8 K/mcL (4.3-11.1)
[2021-05-23 02:17] LABS: Calcium 8.6 mg/dL (8.6-10.3); Magnesium 1.5 mg/dL (1.6-2.6); Phosphorous 1.9 mg/dL (2.7-4.5); Potassium 3.7 mEq/L (3.5-5.1)
[2021-05-23 02:20] LABS: INR 5.8
[2021-05-23 02:21] LABS: Prothrombin Time 63.6 Seconds (9.4-12.1)
[2021-05-23] MEDS: Cefepime HCl 2,000 MG in 0.9 % Sodium Chloride Mini Bag 100 ML IVPB SCH ×2 (03:10→15:25)
[2021-05-23] MEDS: Vancomycin 1,250 MG/262.5 ML IV.SOLN IVPB SCH ×2 (03:11→15:32)
[2021-05-23] MEDS: Acetaminophen 325 MG TABLET PO PRN ×2 (03:20→15:39)
[2021-05-23] MEDS: levETIRAcetam 250 MG TABLET PO SCH (08:56)
[2021-05-23] MEDS: Gabapentin 300 MG CAPSULE PO SCH (08:57)
[2021-05-23] MEDS: Aspirin 81 MG TAB.CHEW PO SCH (08:57)
[2021-05-23] MEDS: QUEtiapine Fumarate 25 MG TABLET PO SCH (08:57)
[2021-05-23] MEDS: carvediloL 6.25 MG TABLET PO SCH (08:57)
[2021-05-23] MEDS: lamoTRIgine 100 MG TABLET PO SCH (08:57)
[2021-05-23] MEDS ORDERED: Magnesium Sulfate 1 GM/102 ML PIGGYBACK IVPB ONE (09:09)
[2021-05-23] MEDS: Tiotropium 10 INH DOSE IH SCH (10:49)
[2021-05-23 18:41] LABS: Adenovirus Not Detected (Not Detect); Bordetella Pertussis Not Detected (Not Detect); Chlamydophila pneumoniae Not Detected (Not Detect); Coronavirus 229E Not Detected (Not Detect); Coronavirus HKU1 Not Detected (Not Detect); Coronavirus NL63 Not Detected (Not Detect); Coronavirus OC43 Not Detected (Not Detect); Human Metapneumovirus Not Detected (Not Detect); Human Rhinovirus/Enterovirus Not Detected (Not Detect); Influenza A Subtype 2009 H1 Not Detected (Not Detect); Influenza B Not Detected (Not Detect); Mycoplasma pneumoniae Not Detected (Not Detect); Parainfluenza Virus 1 Not Detected (Not Detect); Parainfluenza Virus 2 Not Detected (Not Detect); Parainfluenza Virus 3 Not Detected (Not Detect); Parainfluenza Virus 4 Not Detected (Not Detect); Respiratory Syncytial Virus Not Detected (Not Detect); SARS-CoV-2 Not Detected (Not Detect)
[2021-05-23 19:21] VITALS: BP 144/92; PULSE 120; TEMP 98.9; O2SAT 93
== END 2021-05-23 20:09 | disposition home or self-care (01) ==
LOC: 3BNU 17:16 → EMEROOARM 17:16 → SUATTDRO 20:43 → 3BNU 21:38 → SUATTDRO 05-21 12:00
PROVIDERS: ADMIT Internal Medicine; ATTEND Internal Medicine